=== PATIENT | female | born 1985 | race Caucasian/White ===

== ENCOUNTER → 2019-05-05 10:56 | Outpatient (BNVA) | payer BC, SELFPAY | PROVIDERS: Family Provider Family Medicine; Referring Provider Dermatology; Visit Provider Otolaryngology | DX: H92.02 Otalgia, left ear (principal); H93.13 Tinnitus, bilateral; H91.93 Unspecified hearing loss, bilateral; H60.60 Unspecified chronic otitis externa, unspecified ear; J32.9 Chronic sinusitis, unspecified; Q67.4 Other congenital deformities of skull, face and jaw; R09.82 Postnasal drip; R51 Headache; R04.0 Epistaxis | CPT/HCPCS: 99204; 99214 ==

== ENCOUNTER 2019-10-09 17:37 | Emergency (ER) | payer BC, SELFPAY ==
[2019-10-09 17:55] VITALS: BP 157/99; PULSE 102; RESP 14; TEMP 36.6; O2SAT 96; BMI 48.4
--- NOTE | 2019-10-09 19:52 | W.ED.URI ---
HPI - URI/Sore Throat General: Chief Complaint: Ear Stated Complaint: does not feel well, ear pain Time Seen by Provider: 10/09/19 19:12 Source: patient Mode of arrival: ambulatory Limitations: no limitations History of Present Illness: HPI Narrative: Patient is a 34-year-old female who presents to ED today with complaints of bilateral ear pain and fullness. Patient states she recently has flown in airplane and wonders if the high altitude could be causing her symptoms. In addition she is complaining of sinus pain/pressure, postnasal drainage, and a productive cough. Patient tells me she does have a history of allergies. She currently is undergoing allergy treatment and evaluation in [place]. Patient has not been running fevers. She does not complain of chest pain, shortness of breath, difficulty breathing. MD elicited complaint: rhinorrhea, nasal congestion, sinus pain and other (ear pain, cough) Pertinent past history: seasonal allergies Onset (ago): day(s) Consistency: constant Exacerbating factors: nothing Relieving factors: nothing Associated symptoms: Reports ear or mastoid pain, nasal congestion and sinus pain; Deny abdominal pain, chills, chest pain, fever(s), headache(s), nausea or vomiting Review of Systems Const: Denies: fever(s), chills, body aches or fatigue Eyes: Denies: change in vision, blurry vision, photophobia, eye discomfort or eye discharge ENMT: Reports: ear or mastoid pain, nasal discharge, nasal congestion, post nasal drip and sinus pain; Denies: throat pain, enlarged tonsils, odynophagia, swelling of lips/tongue, oral sores or ear discharge Card: Denies: chest pain Resp: Denies: dyspnea, productive cough or non-productive cough GI: Denies: abdominal pain, nausea or vomiting Musc: Denies: neck pain or back pain Skin/Breast: Denies: rash Neuro: Denies: headache(s) All/Imm: Denies: facial swelling or seasonal rhinorrhea [facility] ED PFSH: Medical History (Updated 10/09/19 @ 19:54 by TRACY Arteaga) Hypothyroidism Obesity Polycystic ovarian syndrome Surgical History (Updated 09/02/19 @ 19:44 by Bereket Tovar MD) History of delivery (05/03/12) Performed by Dr. Chua in [place], [place]. [place] of [place]2014: [place] [facility] [place] History of D[place]C History of foot surgery (~2010) Right foot History of nasal surgery (~2008) Treatment deviated septum History of tonsillectomy (~2008) Family History (Updated 09/02/19 @ 20:04 by Bereket Tovar MD) Mother , Age 56 from colon cancer Thyroid disease Colon cancer Hypertension Family/Other Thyroid disease maternal aunt Breast cancer Great great grandmother Hypertension Paternal aunt Father Diabetes Social History (Updated 09/02/19 @ 20:02 by Bereket Tovar MD) Smoking and tobacco status: never smoked Alcohol intake: former Physical Exam Const: COMMON NORMALS: no acute distress, patient oriented x3, no limitations and alert HENMT: COMMON NORMALS: normocephalic, atraumatic, hearing grossly normal bilaterally, external ears normal, EAC's normal, Normal external nose present, moist oral mucous membranes, oropharynx normal, dentition normal and gingiva normal HEAD & SCALP: normal to inspection, normocephalic and atraumatic FACE & SINUS: sinus tenderness maxillary NOSE: Normal external nose present EXTERNAL EAR: Yes external ears normal EXTERNAL AUDITORY CANAL: EAC's normal TYMPANIC MEMBRANE: TM abnormal (scarring to L TM; erythema/bulging to superior R TM; no perfs) MOUTH: Normal oral and palatal mucosa present THROAT: posterior oropharynx normal, tonsils normal and uvula midline Neck/C-Spine: COMMON NORMALS: full ROM, no lymphadenopathy and no meningeal signs Neuro: COMMON NORMALS: patient oriented x3 SENSORIUM/ORIENTATION: Yes alert MENINGEAL SIGNS: Yes no meningeal signs Course Vital Signs: Vital signs: Vital Signs Temperature 97.8 F 10/09/19 17:55 Pulse Rate 102 H 10/09/19 17:55 Respiratory Rate 16 10/09/19 20:20 Blood Pressure 157/99 10/09/19 17:55 Pulse Oximetry 96 10/09/19 17:55 Discharge Plan Discharge Patient Disposition: Home, Self-Care Clinical Impression: Bronchitis Acute otitis externa of right ear Qualifiers: Otitis externa type: unspecified type Qualified Code(s): H60.501 - Unspecified acute noninfective otitis externa, right ear Chronic sinusitis Qualifiers: Sinusitis location: maxillary Qualified Code(s): J32.0 - Chronic maxillary sinusitis Condition: Stable Prescriptions: New Levaquin 500 mg tablet 500 mg PO Q24H 7 Days Qty: 7 RF: 0 No Action budesonide-formoterol [Symbicort] 160-4.5 mcg/actuation HFA aerosol inhaler 2 puff INHALATION BID RF: 0 montelukast 10 mg tablet 10 mg PO DAILY RF: 0 sertraline [Zoloft] 25 mg tablet 50 mg PO DAILY RF: 0 pseudoephedrine HCl 30 mg tablet 30 - 60 mg PO Q4H PRN (Reason: unknown) RF: 0 Adult Multivitamin Gummies 200 mcg Tablet,Chewable 400 mcg PO DAILY RF: 0 Mucinex 1 tab PO BID RF: 0 Vitamin B 12 Gummies 2 tab PO DAILY RF: 0 Prometrium 200 mg capsule 200 mg PO PRN RF: 0 Discharge Orders: Discharge Order (Routine); Ordered 10/09/19 Ordered By: Phoebe Posada Referrals: Nely Romero FNP [Primary Care Provider] - Discharge Date/Time: 10/09/19 20:21 Coding Level of Care Code ED Restaurant Team Member for Ryan Menon
[2019-10-09 20:20] VITALS: RESP 16
== END 2019-10-09 20:21 | disposition home or self-care (01) ==
PROVIDERS: Emergency Provider Physician Assistant; PCP Nurse Practitioner Family
DX: J40 Bronchitis, not specified as acute or chronic (principal); H60.501 Unspecified acute noninfective otitis externa, right ear; J32.0 Chronic maxillary sinusitis
CPT/HCPCS: 12345; 99281

== ENCOUNTER 2020-09-30 07:13 | Outpatient (CLI) | payer BC, SELFPAY ==
--- NOTE | 2020-09-30 07:22 | MR_ITS ---
WS: [id number] MRI LUMBAR SPINE NONCONTRAST TECHNIQUE: Sagittal T1, T2 and STIR imaging. Axial T1 and T2 imaging. CLINICAL INFORMATION: CHRONIC BACK PAIN COMPARISON: None. FINDINGS: Mild lumbar curve. No acute compression. No high-grade central canal stenosis. L1-L2: Normal. L2-L3: Tiny left foraminal protrusion with mild left foraminal narrowing. Contact of the exiting left L2 nerve root. Right foramen is patent. Spinal canal is patent. L3-L4: Small left foraminal protrusion slightly impinges the exiting left L3 nerve root with mild lef t foraminal narrowing. Right foramen is patent. Mild facet arthropathy. Spinal canal is patent. L4-L5: Tiny right proximal foraminal protrusion slightly contacts the exiting right L4 nerve root wit h mild right foraminal narrowing. Left foramen is patent. Moderate facet arthropathy. Spinal canal is patent. L5-S1: Mild disc bulging with osteophytic ridging. Advanced right facet arthropathy. Mild to moderate right and no significant left foraminal narrowing. Slight impingement right subarticular recess and traversing right S1 nerve root.Tiny right synovial cyst contributes to narrowing. Visualized pelvic bony structures: Normal. Paravertebral soft tissues: Normal. MR/MR lumbar spine wo con* [id number] IMPRESSION: 1. Right eccentric disc bulging L5-S1 slightly impinges the exiting right L5 a nd traversing right S1 nerve roots. Tiny right synovial cyst contributes to emily rowing. Mild to moderate right L5-S1 foraminal narrowing. Advanced right facet arthropathy. 2. Small left foraminal protrusions at L2-3 and L3-4 with contact of the exiti ng left L2 and L3 nerve roots respectively. 3. Tiny right proximal foraminal protrusion slightly contacts the exiting righ t L4 nerve root. 4. Mild to moderate facet arthropathy L4-5.
== END 2020-09-30 07:14 | disposition home or self-care (01) ==
LOC: RADSHAW 07:20
PROVIDERS: PCP Nurse Practitioner Family; Visit Provider Nurse Practitioner Family
DX: M47.816 Spondylosis without myelopathy or radiculopathy, lumbar region (principal); M51.26 Other intervertebral disc displacement, lumbar region; M51.27 Other intervertebral disc displacement, lumbosacral region
CPT/HCPCS: 72148

== ENCOUNTER 2020-10-11 12:00 | Outpatient (CLI) | payer BC, SELFPAY | END 2020-10-11 12:01 | disposition home or self-care (01) | LOC: SLEEP 10-12 10:51 | PROVIDERS: PCP Nurse Practitioner Family; Visit Provider Nurse Practitioner Family | DX: G47.10 Hypersomnia, unspecified (principal) | CPT/HCPCS: G0399 ==

== ENCOUNTER 2021-09-21 09:00 | Day surgery (SDC) | payer BC, SELFPAY ==
[2021-09-19 11:44] VITALS: BMI 51.6
[2021-09-21 09:35] VITALS: BP 146/86; PULSE 101; RESP 18; TEMP 36.7; O2SAT 97
[2021-09-21] MEDS: sodium chloride 0.9% 1,000 ML 30 ML IV (09:42)
[2021-09-21 09:48] LABS: OR HCG Qualitative Urine Negative (Negative)
--- NOTE | 2021-09-21 10:50 | ANES.PREANE2 ---
Pre-Anesthetic Assessment Height/Weight: Height 1.68 m Weight 145.15 kg Temp Pulse Resp BP Pulse Ox 98.1 F 101 H 18 146/86 97 09/21/21 09:35 09/21/21 09:35 09/21/21 09:35 09/21/21 09:35 09/21/21 09:35 Preop Diagnosis: diagnostic Operation Date: 09/21/21 10:30 Proposed Procedures p EGD [id number]/r10.9/r19.7/z80.0(Not Applicable) - Hammad Molina MD s Colonoscopy(Not Applicable) - Hammad Molina MD Last intake: Intake Last Liquid Date 09/20/21 Last Liquid Time 21:00 Last Solid Date 09/19/21 Last Solid Time 08:00 Social Medical Cannibus Airway Submandibular: within normal limits Mallampati: Class II Pulmonary Asthma Metabolic Obesity, Hypothroidism Anesthetic Plan ASA status: 2 Anesthesia: MAC Medications/Allergies Home Medications Medication Instructions Recorded Confirmed Last Taken Type budesonide-formoterol HFA 160 2 puff INHALATION BID 08/14/19 09/21/21 6 Months Ago History mcg-4.5 mcg/actuation aerosol ~03/23/21 inhaler (Symbicort) Vitamin B 12 Gummies 2 tab PO DAILY 10/09/19 09/21/21 1 Year Ago History ~09/21/20 multivitamin with minerals-folic 400 mcg PO DAILY 10/09/19 09/21/21 09/16/21 History acid 200 mcg chewable tablet (Adult Multivitamin Gummies) progesterone micronized 200 mg 200 mg PO PRN 10/09/19 09/21/21 08/18/21 History capsule (Prometrium) Allergies Allergy/AdvReac Type Severity Reaction Status Date / Time oxycodone Allergy Intermediate itch Verified 09/21/21 09:32 Current Medications Generic Name Dose Route Start Last Admin Trade Name Freq PRN Reason Stop Dose Admin Sodium Chloride 1,000 mls @ 30 mls/hr 09/21/21 09:30 09/21/21 09:42 Sodium Chloride 0.9% IV 09/22/21 09:29 30 mls/hr .Q24H JOSE Administration PFSH Anesthesia Medical History Hypothyroidism Obesity Polycystic ovarian syndrome Surgical History History of delivery (05/03/12) Performed by Dr. Chua in [place], [place]. History of colonoscopy 10/2014: Performed by Dr. Molina at [facility] [place]. History of D&C History of foot surgery (~2010) Right foot History of nasal surgery (~2008) Treatment deviated septum History of sinus surgery 12/2019 History of tonsillectomy (~2008) Family History Mother , Age 56 from colon cancer Thyroid disease Colon cancer Hypertension Family/Other Thyroid disease maternal aunt Breast cancer Great great grandmother Hypertension Paternal aunt Father Diabetes Social History Smoking and tobacco status: never smoked Alcohol intake: former Female Reproductive History Date of last menstrual period: 08/17/21 Data Anesthesia Cardiac Studies: No Data to Display
[2021-09-21 11:37] VITALS: BP 143/85; PULSE 89; RESP 16; TEMP 36.3; O2SAT 98
--- NOTE | 2021-09-21 11:39 | W.PM.OPSFHP ---
Same Day Surgery H&P Indication for Procedure/HPI DATE OF PROCEDURE: September 21, 2021 CHIEF COMPLAINT/INDICATIONFOR SURGICAL PROCEDURE: egd/colon PREOP DIAGNOSIS: diagnostic PLANNED PROCEDURE: Operation Date: 09/21/21 10:30 Proposed Procedures p EGD [id number]/r10.9/r19.7/z80.0(Not Applicable) - Hammad Molina MD s Colonoscopy(Not Applicable) - Hammad Molina MD Medications/Allergies* Home Medications Medication Instructions Recorded Confirmed Type budesonide-formoterol HFA 160 2 puff INHALATION BID 08/14/19 09/21/21 History mcg-4.5 mcg/actuation aerosol inhaler (Symbicort) Vitamin B 12 Gummies 2 tab PO DAILY 10/09/19 09/21/21 History multivitamin with minerals-folic 400 mcg PO DAILY 10/09/19 09/21/21 History acid 200 mcg chewable tablet (Adult Multivitamin Gummies) progesterone micronized 200 mg 200 mg PO PRN 10/09/19 09/21/21 History capsule (Prometrium) Allergies/Adverse Reactions Allergy/AdvReac Type Severity Reaction Status Date / Time oxycodone Allergy Intermediate itch Verified 09/21/21 09:32 Current Medications: Generic Name Dose Route Start Last Admin Trade Name Freq PRN Reason Stop Dose Admin Sodium Chloride 1,000 mls @ 30 mls/hr 09/21/21 09:30 09/21/21 09:42 Sodium Chloride 0.9% IV 09/22/21 09:29 30 mls/hr .Q24H JOSE Administration Pertinent History/Comorbid Conditions* Medical History (Updated 06/16/20 @ 14:53 by Dayo Rivera MD) Hypothyroidism Obesity Polycystic ovarian syndrome Surgical History (Updated 07/05/21 @ 13:35 by Hammad Molina MD) History of delivery (05/03/12) Performed by Dr. Chua in [place], [place]. History of colonoscopy 10/2014: Performed [place]. Molina [place] [facility] [place]. History of D&C History of foot surgery (~2010) Right foot History of nasal surgery (~2008) Treatment deviated septum History of sinus surgery 12/2019 History of tonsillectomy (~2008) Family History (Updated 09/02/19 @ 20:01 by Bereket Tovar MD) Mother, Age 56 from colon cancer Colon cancer Mother Diabetes Father Breast cancer Family/Other Great great grandmother Hypertension Mother Family/Other Paternal aunt Thyroid disease Mother Family/Other maternal aunt Social History Smoking and tobacco status: never smoked Alcohol intake: former Pertinent Exam Findings alert, oriented x 3 and regular rate & rhythm Recommendations Surgery/Procedure today Coding Level of Care Code Acute Finishing Area Operator for Ryan Menon
[2021-09-21 11:47] VITALS: BP 131/83; PULSE 85; RESP 16; O2SAT 96
--- NOTE | 2021-09-21 13:24 | ANE.PACU2 ---
Inpatient post-anesthesia follow up: Vital signs: Temperature 97.4 F Pulse Rate 85 Respiratory Rate 16 Blood Pressure 131/83 Pulse Oximetry 96 Oxygen Delivery Me thod Room Air Oxygen Flow Rate 2 Fraction of Inspir ed Oxygen Hydration adequate: Yes Nausea and vomiting: No Pain level: 1 Mental status: Baseline
== END 2021-09-21 12:33 | disposition home or self-care (01) ==
PROVIDERS: Anesthesiology; PCP Nurse Practitioner Family; Visit Provider Surgery
PROC: 0DJ08ZZ Inspection of Upper Intestinal Tract, Via Natural or Artificial Opening Endoscopic (ICD-10-PCS; CPT 43235; principal; 2021-09-21 10:30)
PROC: 0DJD8ZZ Inspection of Lower Intestinal Tract, Via Natural or Artificial Opening Endoscopic (ICD-10-PCS; CPT 45378; 2021-09-21 10:30)
DX: R19.7 Diarrhea, unspecified (principal); R10.9 Unspecified abdominal pain; Z80.0 Family history of malignant neoplasm of digestive organs; K29.80 Duodenitis without bleeding; E66.9 Obesity, unspecified; Z68.43 Body mass index [BMI] 50.0-59.9, adult; E03.9 Hypothyroidism, unspecified; E28.2 Polycystic ovarian syndrome
CPT/HCPCS: 43239; 45380; 81025; 82274; 83630; 84703; 87493; 87506; 88305; J2704; J7030

== ENCOUNTER 2021-11-09 09:58 | Outpatient (CLI) | payer BC, SELFPAY ==
--- NOTE | 2021-11-09 10:00 | NM_ITS ---
WS: [id number] NUCLEAR MEDICINE HIDA SCAN WITH GALLBLADDER EJECTION FRACTION HISTORY: R10.9 - Unspecified abdominal pain COMPARISON: Limited abdomen ultrasound 09/23/2019 TECHNIQUE: The patient was intravenously injected with 7.6 mCi of TC99m Mebrofenin. Immediate imaging over the right upper quadrant was followed by 5 minute image and additional images for a total of 60 minutes. Uptake throughout the liver is heterogeneous. This is probably related to overlying attenuation and b haydee habitus. No retention of the nuclide tracer. Activity identified in the gallbladder at 15 minutes and well distended by 60 minutes. Activity in the proximal small bowel was seen by 40 minutes. Good washout of the radiotracer from the liver by 60 minutes. The patient then drank 8 ounces of Ensure Plus. Ejection fraction at 60 minutes was 85%. Normal GB ej ection fraction is 35-75%. Post fatty meal symptoms: None. NM/NM hepatobiliary w phar* [id number] IMPRESSION: 1. Normal HIDA scan. 2. Normal gallbladder ejection fraction.
== END 2021-11-09 09:59 | disposition home or self-care (01) ==
LOC: RAD 10:00
PROVIDERS: PCP Nurse Practitioner Family; Visit Provider Surgery
DX: R10.9 Unspecified abdominal pain (principal)
CPT/HCPCS: 78227; A9537

== ENCOUNTER 2021-11-18 07:50 | Day surgery (SDC) | payer BC, SELFPAY ==
[2021-11-17 12:30] VITALS: BMI 50.8
[2021-11-18] VITALS (20 sets, daily range): BP systolic 136–177; BP diastolic 83–110; PULSE 6–97; RESP 8–17; TEMP 36.3–36.8; O2SAT 89–99
--- NOTE | 2021-11-18 08:18 | ANES.PREANE2 ---
Pre-Anesthetic Assessment Height/Weight: Height 1.68 m Weight 142.882 kg Temp Pulse Resp BP Pulse Ox O2 Del Method 98.2 F 95 17 150/104 97 11/18/21 08:05 11/18/21 08:05 11/18/21 08:05 11/18/21 08:05 11/18/21 08:05 11/18/21 08:09 Preop Diagnosis: chronic cholecystitis Operation Date: 11/18/21 09:15 Proposed Procedures p Laparoscopic Cholecystectomy(Not Applicable) - Hammad Molina MD Familial anesthetic complications: none Was Beta Naresh taken within 24 hours: N/A Was Clonidine taken within 24 hours: N/A Last intake: Intake Last Liquid Date 11/17/21 Last Liquid Time 23:30 Last Solid Date 11/17/21 Last Solid Time 20:30 Social No alcohol and No tobacco Exam alert, oriented x 3, clear to auscultation bilaterally and regular rate & rhythm Airway Submandibular: within normal limits Cervical ROM: within normal limits Mallampati: Class II Comments: Comments: Broken molar Pulmonary Recurrent epistaxis CV/HEM None reported PCOS Hepatic None reported GI Gastroesophageal Reflux Disease (Well controlled, only with specific foods ) cholecystitis Metabolic Morbid Obesity and Thyroid Disease Musc/skel None reported Neuropsych None reported Anesthetic Plan ASA status: 3 (36 year old super morbid obese female with hx of hypothyroidism, PCOS, chronic otitis, and choecystitis ) Anesthesia: Anesthesia Evaluation and General Other: We discussed risk and benefits of general anesthesia including PONV, sore throat (sometimes severe), corneal abrasion, positioning and peripheral nerve injuries, life threatening allergic reaction, post operative ICU admission requiring prolonged intubation, aspiration, stroke, heart attack, , and rare incidences of recall. Patient consents to proceed with general anesthesia. Risk of > 500 ml blood loss (7ml/kg in children): No Medications/Allergies Home Medications Medication Instructions Recorded Confirmed Last Taken Type budesonide-formoterol HFA 160 2 puff inhalation BID PRN Wheezing 08/14/19 11/17/21 6 Months Ago History mcg-4.5 mcg/actuation aerosol ~03/23/21 inhaler (Symbicort) Vitamin B 12 Gummies 2 tab PO DAILY 10/09/19 11/18/21 11/15/21 History multivitamin with minerals-folic 400 mcg PO DAILY 10/09/19 11/18/2111/17/22 09:00 History acid 200 mcg chewable tablet (Adult Multivitamin Gummies) progesterone micronized 200 mg 200 mg PO PRN pcos 10/09/19 11/18/21 08/18/21 History capsule (Prometrium) bacillus coagulans-inulin 1 1 cap PO DAILY 11/18/21 11/18/21 11/17/21 08:30 History billion cell-250 mg capsule (Probiotic with Prebiotic) Allergies Allergy/AdvReac Type Severity Reaction Status Date / Time oxycodone Allergy Intermediate itch Verified 11/18/21 08:06 [facility] Anesthesia Medical History Hypothyroidism Obesity Polycystic ovarian syndrome Surgical History History of delivery (05/03/12) Performed by Dr. Chua in [place], [place]. History of colonoscopy 10/2014: Performed by Dr. Molina at [facility] [place]. History of D&C History of foot surgery (~2010) Right foot History of nasal surgery (~2008) Treatment deviated septum History of sinus surgery 12/2019 History of tonsillectomy (~2008) Family History Mother , Age 56 from colon cancer Thyroid disease Colon cancer Hypertension Family/Other Thyroid disease maternal aunt Breast cancer Great great grandmother Hypertension Paternal aunt Father Diabetes Social History Smoking and tobacco status: never smoked Alcohol intake: former Female Reproductive History Date of last menstrual period: 10/23/21 Data Anesthesia Cardiac Studies: No Data to Display
[2021-11-18 08:19] LABS: OR HCG Qualitative Urine Negative (Negative)
[2021-11-18] MEDS: sodium chloride 0.9% 1,000 ML 30 ML IV (08:42)
[2021-11-18] MEDS: scopolamine 1.5 Patch 1 PATCH TRANSDERMA (08:48)
[2021-11-18] MEDS: diphenhydrAMINE 50 mg/mL SDV 1mL 12.5 MG IVP (08:49)
--- NOTE | 2021-11-18 09:22 | P.HP_ITS ---
Same Day Surgery H&P Indication for Procedure/HPI DATE OF PROCEDURE: November 18, 2021 CHIEF COMPLAINT/INDICATIONFOR SURGICAL PROCEDURE: Lap burton PREOP DIAGNOSIS: chronic cholecystitis PLANNED PROCEDURE: Operation Date: 11/18/21 09:15 Proposed Procedures p Laparoscopic Cholecystectomy(Not Applicable) - Hammad Molina MD Medications/Allergies* Home Medications Medication Instructions Recorded Confirmed Type budesonide-formoterol HFA 160 2 puff inhalation BID PRN Wheezing 08/14/19 11/17/21 History mcg-4.5 mcg/actuation aerosol inhaler (Symbicort) Vitamin B 12 Gummies 2 tab PO DAILY 10/09/19 11/18/21 History multivitamin with minerals-folic 400 mcg PO DAILY 10/09/19 11/18/21 History acid 200 mcg chewable tablet (Adult Multivitamin Gummies) progesterone micronized 200 mg 200 mg PO PRN pcos 10/09/19 11/18/21 History capsule (Prometrium) bacillus coagulans-inulin 1 1 cap PO DAILY 11/18/21 11/18/21 History billion cell-250 mg capsule (Probiotic with Prebiotic) Allergies/Adverse Reactions Allergy/AdvReac Type Severity Reaction Status Date / Time oxycodone Allergy Intermediate itch Verified 11/18/21 08:06 Current Medications: Generic Name Dose Route Start Last Admin Trade Name Freq PRN Reason Stop Dose Admin Diphenhydramine HCl 12.5 mg 11/18/21 08:00 11/18/21 08:49 Diphenhydramine 50 Mg/Ml Sdv 1ml IVP 12.5 mg ONCE PRN Administration NAUSEA Sodium Chloride 1,000 mls @ 30 mls/hr 11/18/21 08:00 11/18/21 08:42 Sodium Chloride 0.9% IV 11/19/21 07:59 30 mls/hr .Q24H JOSE Administration Pertinent History/Comorbid Conditions* Medical History (Updated 06/16/20 @ 14:53 by Dayo Rivera MD) Hypothyroidism Obesity Polycystic ovarian syndrome Surgical History (Updated 07/05/21 @ 13:35 by Hammad Molina MD) History of delivery (05/03/12) Performed by Dr. Chua in [place], [place]. History of colonoscopy 10/2014: Performed by Dr. Molina at [facility] [place]. History of D&C History of foot surgery (~2010) Right foot History of nasal surgery (~2008) Treatment deviated septum History of sinus surgery 12/2019 History of tonsillectomy (~2008) Family History (Updated 09/02/19 @ 20:01 by Bereket Tovar MD) Mother, Age 56 from colon cancer Colon cancer Mother Diabetes Father Breast cancer Family/Other Great great grandmother Hypertension Mother Family/Other Paternal aunt Thyroid disease Mother Family/Other maternal aunt Social History Smoking and tobacco status: never smoked Alcohol intake: former Pertinent Exam Findings alert, oriented x 3 and regular rate & rhythm Recommendations Surgery/Procedure today Coding Level of Care Code Acute Bleach Analyst for Ryan Menon
[2021-11-18] MEDS: ceFAZolin 2,000 MG in sodium chloride 0.9% (plus) 50 ML 100 MG IV (09:32)
[2021-11-18 09:59] LABS: Glucose Point of Care 112 mg/dL (70-110)
--- NOTE | 2021-11-18 11:04 | SUR.PHASEI ---
10:44 RECEIVED PT FROM OR STAFF. PT RESPONDS TO VERBAL WITH PERIODS OF SLEEP APNEA.NSR ON MONITOR. 10;45 PLACED ON O2 AND JAW THRUST PERFORMED BY ANESTHESIA. 10:47 PT MORE RESPONSIVE IMPROVED VENTILATIONS. 11:05 SURGICAL SITES ASSESSED. NO DRAINAGE NOTED.
--- NOTE | 2021-11-18 11:13 | PM.OP ---
Operative Report Date of procedure: November 18, 2021 Pre-op diagnosis: Chronic cholecystitis Hepatomegaly Post-op diagnosis: same Procedure done: Laparoscopic cholecystectomy Specimens removed/disposition: Gallbladder Surgeon: Hammad Molina Anesthesia: General Condition: stable Disposition: PACU Procedure: The patient was taken to the operating room and was intubated under general anesthesia. After the antibiotic had been administered, the abdomen was prepped and draped in a sterile manner. Using a #15 blade, a 1 centimeter infraumbilical curvilinear incision was made and using an open Ren technique the peritoneal cavity was entered. A 10 millimeter port was placed and 15 millimeters of pneumoperitoneum was created. A 10 millimeter, 30 degrees scope was then introduced. Three 5 millimeter ports were placed in the epigastric, midclavicular and the anterior axillary line two fingerbreadths below the costal margin on the right side under the direct visualization. Ratcheted forceps were introduced into the lateral most port and was used to retract the fundus of the gallbladder cephalad and using forceps the infundibulum of the gallbladder was retracted laterally. Using L-hook cautery the peritoneum overlying the Calot's triangle was opened medially and laterally until the cystic duct and the cystic artery were skeletonized. Dissection was carried along the body of the gallbladder and after ensuring critical view of safety, 4 clips applied on the cystic duct and 3 clips applied on the cystic artery and cut leaving, 3 clips on the remaining portion of the duct and 2 clips on the remaining portion of the artery. The rest of the gallbladder was dissected off the liver using L-hook cautery. There was no bleeding or bile leaking noted from the gallbladder fossa and the clips appeared to be in place. An EndoCatch bag was introduced to remove the gallbladder. All the ports were removed under direct visualization and there was no bleeding noted from the port sites. The fascia of the umbilicus was closed using [id number] 0 Vicryl sutures and the subcutaneous tissue was approximated using 3-0 Vicryl sutures. The skin at all four ports were closed using 4-0 Monocryl and Dermabond. A total of 10 millimeters of 0.5% Marcaine was infiltrated around the port sites. The patient was stable throughout the procedure.
--- NOTE | 2021-11-18 12:24 | ANE.PACU2 ---
Inpatient post-anesthesia follow up: Airway intact: Yes Vital signs: Temperature 97.8 F Pulse Rate 77 Respiratory Rate 17 Blood Pressure 157/97 Pulse Oximetry 96 Oxygen Delivery Me thod Nasal Cannula Oxygen Flow Rate 3 Fraction of Inspir ed Oxygen Hydration adequate: Yes Nausea and vomiting: No Pain level: 1 Mental status: Baseline
--- NOTE | 2021-11-18 12:44 | SUR.PHASEII ---
1244-patient was feeling tight in her chest saying she felt like she needed a breathing treatment. RT was called and will administer treatment in OPS rm 10
[2021-11-18] MEDS: HYDROcodone-acetaminophen 5-325 mg Tablet 1 TAB PO (13:22)
== END 2021-11-18 13:43 | disposition home or self-care (01) ==
PROVIDERS: Anesthesiology; PCP Nurse Practitioner Family; Visit Provider Surgery
PROC: 0FT44ZZ Resection of Gallbladder, Percutaneous Endoscopic Approach (ICD-10-PCS; CPT 47562; principal; 2021-11-18 09:15)
DX: K81.1 Chronic cholecystitis (principal); R16.0 Hepatomegaly, not elsewhere classified; K21.9 Gastro-esophageal reflux disease without esophagitis; E66.01 Morbid (severe) obesity due to excess calories; Z68.43 Body mass index [BMI] 50.0-59.9, adult; E03.9 Hypothyroidism, unspecified; E28.2 Polycystic ovarian syndrome
CPT/HCPCS: 47562; 36416; 81025; 82962; 84703; 88304; 94640; J1170; J1200; J1885; J2250; J2710; J3010; J3490; J7030

== ENCOUNTER 2021-11-29 12:52 | Emergency (ER) | payer BC, SELFPAY ==
[2021-11-29 12:59] VITALS: BP 152/96; PULSE 102; RESP 20; TEMP 36.6; O2SAT 98; BMI 51.7
--- NOTE | 2021-11-29 15:00 | PC.NURSE ---
PULSE OX MONITORING AND CARDIAC MONITORING ARE NOT AVAILABLE AT THIS TIME IN VERTICAL FLOW [facility] MOLINA WAS NOTIFIED
--- NOTE | 2021-11-29 15:01 | ED_ITS ---
HPI - Abdominal Pain General: Chief Complaint: Abdominal Pain Stated Complaint: Possible appendicitis Time Seen by Provider: 11/29/21 14:54 Source: patient Mode of arrival: ambulatory Limitations: no limitations History of Present Illness: Patient is a 36-year-old female presents to ED today with a complaint of right-sided abdominal pain. Patient states she had a laparoscopic cholecystectomy by Dr. Molina on 11/18. She states she was doing good following the surgery until around 3 AM when she awoke with significant right-sided abdominal pain. She was seen by Dr. Molina today who recommended she have a UA performed at urgent care through her PCP as she had also mentioned some foul-smelling urine and he wanted to rule out a UTI. He stated if UA was clear then she needed to proceed to rule out appendicitis as she was tender to her right lower quadrant on his examination. Patient states she did have UA completed and was told it was normal. Patient states she is having some nausea but not had any episodes of emesis. She has not been running fevers. She states her abdominal incisions are looking good. Previous abdominal surgeries include her recent cholecystectomy and one previous section. MD elicited complaint: abdominal pain Onset (ago): hour(s) Pain Consistency: constant Location: RUQ and RLQ Severity: severe Radiation: none Migration to: no migration Exacerbating factors: nothing Relieving factors: nothing Associated Symptoms: Reports nausea; Denies change in bowel habits, chills, dysuria, fever(s), hematochezia, melena and vomiting Related Data: Date of Last Menstrual Period: 10/29/21 Patient : No Review of Systems Const: Denies: fever(s), chills, body aches, fatigue or malaise Card: Denies: chest pain Resp: Denies: dyspnea GI: Reports: abdominal pain and nausea; Denies: vomiting, change in bowel habits, hematochezia or melena : Reports: other (pt states foul smelling urine was a few days ago; denies currently); Denies: flank pain, difficulty voiding, dysuria, urinary frequency, urinary ur gency or urinary hesitancy Musc: Denies: neck pain, back pain, extremity pain or joint pain Skin/Breast: Denies: rash Neuro: Denies: headache(s), numbness in extremities, weakness in extremities, sensory changes or dizziness PFSH ED PFSH: Medical History Hypothyroidism Obesity Polycystic ovarian syndrome Surgical History History of delivery (05/03/12) Performed by Dr. Chua in [place], [place]. History of colonoscopy 10/2014: Performed by Dr. Molina at [facility]. History of D&C History of foot surgery (~2010) Right foot History of nasal surgery (~2008) Treatment deviated septum History of sinus surgery 12/2019 History of tonsillectomy (~2008) Status post laparoscopic cholecystectomy (11/18/21) Family History Mother , Age 56 from colon cancer Thyroid disease Colon cancer Hypertension Family/Other Thyroid disease maternal aunt Breast cancer Great great grandmother Hypertension Paternal aunt Father Diabetes Social History Smoking and tobacco status: never smoked Alcohol intake: former Female Reproductive History: Date of last menstrual period: 10/29/21 Physical Exam Const: COMMON NORMALS: no acute distress, patient oriented x3, no limitations and alert GENERAL APPEARANCE: cooperative NUTRITIONAL APPEARANCE: obese morbidly obese (BMI is 51.8) ORIENTATION/CONSCIOUSNESS: Yes awake, Yes oriented to person, Yes oriented to place and Yes oriented to time Resp: COMMON NORMALS: normal respiratory effort and clear to auscultation bilaterally AUSCULTATION: clear to auscultation bilaterally Cardio: COMMON NORMALS: regular rate and regular rhythm RATE: regular rate RHYTHM: regular rhythm GI: COMMON NORMALS: Soft to palpation AUSCULTATION: Yes normoactive bowel sounds PALPATION: Yes Soft to palpation, Yes Tenderness to palpation present (GI), Yes Guarding due to palpation present (GI) and No Rigid due to palpation OTHER: exam is limited secondary to body habitus and patient seated in a recliner; laparoscopic incisions all look normal w/o evidence for infection; she has tenderness throughout R side of abdomen with mild guarding : COMMON NORMALS: Yes no CVA tenderness BLADDER/KIDNEY EXAM: Yes no CVA tenderness Back/Pelvis: COMMON NORMALS: no CVA tenderness Extremity: COMMON NORMALS: normal to inspection GENERAL: Yes normal exam except as noted Neuro: JENNA COMA SCALE: document GCS findings Jenna coma scale eye op ening: Spontaneous [place] coma scale verbal response: Orientated [place] coma scale motor response: Obey commands Jenna coma scale total score: 15 COMMON NORMALS: patient oriented x3 SENSORIUM/ORIENTATION: Yes alert, Yes oriented to person, Yes oriented to place and Yes oriented to time Course Vital Signs: Vital signs: Vital Signs Temperature 97.8 F 11/29/21 12:59 Pulse Rate 102 H 11/29/21 12:59 Respiratory Rate 20 H 11/29/21 12:59 Blood Pressure 152/96 11/29/21 12:59 Pulse Oximetry 98 11/29/21 12:59 MDM - Abdominal Pain Medical Decision Making Patient clinically appears in no acute distress. Her vital signs are stable. Lab work is unremarkable. Her UA is clear. CT scan showing no acute findings. She does have a diffuse fatty liver. At this time recommend she follow-up with general surgery/PCP if pain persists. She states she does have pain medications at home she can take. Strict return ED precautions given and patient verbalizes understanding. Lab Data : 11/29/21 14:43 11/29/21 14:43 Labs/Radiology: Radiology Impressions Abdomen/Pelvis CT 11/29/21 15:13 IMPRESSION: 1. No acute findings. 2. Diffuse hepatic steatosis. Laboratory Results WBC 10.4 10^3/uL (4.0-10.0) H 11/29/21 14:43 RBC 4.53 10^6/uL (4.1-5.3) 11/29/21 14:43 Hgb 13.9 g/dL (11.5-15.3) 11/29/21 14:43 Hct 42.8 % (37.0-47.0) 11/29/21 14:43 MCV 94.5 fl (81-99) 11/29/21 14:43 MCH 30.7 pg (28.0-34.0) 11/29/21 14:43 MCHC 32.5 g/dL (30.0-36.0) 11/29/21 14:43 RDW 12.4 % (12.1-15.1) 11/29/21 14:43 Plt Count 306 10^3/cmm (130-400) 11/29/21 14:43 MPV 9.3 fL (7.4-10.4) 11/29/21 14:43 Neut % (Auto) 69.9 % 11/29/21 14:43 Lymph % (Auto) 19.6 % 11/29/21 14:43 [place] % (Auto) 6.2 % 11/29/21 14:43 Eos % (Auto) 3.6 % 11/29/21 14:43 Baso % (Auto) 0.3 % 11/29/21 14:43 Neut # (Auto) 7.24 10^3/uL (1.8-7.7) 11/29/21 14:43 Lymph # (Auto) 2.0 10^3/uL (0.8-4.8) 11/29/21 14:43 [place] # (Auto) 0.6 10^3/uL (0.2-0.9) 11/29/21 14:43 Eos # (Auto) 0.4 10^3/uL (0.0-0.8) 11/29/21 14:43 Baso # (Auto) 0.0 10^3/uL (0.0-0.1) 11/29/21 14:43 Nucleated RBC % (auto) 0 % 11/29/21 14:43 Nucleated RBCs # 0.0 /100WBC 11/29/21 14:43 Sodium 138 mmol/L (136-145) 11/29/21 14:43 Sodium Cancelled 11/29/21 14:43 Potassium 3.7 mmol/L (3.5-5.1) 11/29/21 14:43 Potassium Cancelled 11/29/21 14:43 Chloride 102 mmol/L (98-107) 11/29/21 14:43 Chloride Cancelled 11/29/21 14:43 Carbon Dioxide 23 mmol/L (22-29) 11/29/21 14:43 Carbon Dioxide Cancelled 11/29/21 14:43 Anion Gap 16.7 (5-19) 11/29/21 14:43 Anion Gap Cancelled 11/29/21 14:43 BUN 8 mg/dL (6-20) 11/29/21 14:43 BUN Cancelled 11/29/21 14:43 Creatinine 0.8 mg/dL (0.5-0.9) 11/29/21 14:43 Creatinine Cancelled 11/29/21 14:43 GFR Calculation 81.6 mL/min (90-130) L 11/29/21 14:43 GFR Calculation Cancelled 11/29/21 14:43 Glucose 96 mg/dL (65-115) 11/29/21 14:43 Glucose Cancelled 11/29/21 14:43 Calculated Osmolality 284 mOsm/kg (285-295) L 11/29/21 14:43 Calculated Osmolality Cancelled 11/29/21 14:43 Lactic Acid 0.9 mmol/L (0.5-2.2) 11/29/21 14:43 Calcium 8.6 mg/dL (8.5-10.5) 11/29/21 14:43 Calcium Cancelled 11/29/21 14:43 Total Bilirubin 0.5 mg/dL (0.15-1.2) 11/29/21 14:43 Total Bilirubin Cancelled 11/29/21 14:43 AST 25 U/L (0-32) 11/29/21 14:43 AST Cancelled 11/29/21 14:43 ALT 38 U/L (0-33) H 11/29/21 14:43 ALT Cancelled 11/29/21 14:43 Alkaline Phosphatase 94 U/L (35-105) 11/29/21 14:43 Alkaline Phosphatase Cancelled 11/29/21 14:43 Total Protein 7.4 g/dL (6.6-8.7) 11/29/21 14:43 Total Protein Cancelled 11/29/21 14:43 Albumin 3.9 g/dL (3.5-5.2) 11/29/21 14:43 Albumin Cancelled 11/29/21 14:43 Globulin 3.5 g/dL (1.3-4.6) 11/29/21 14:43 Globulin Cancelled 11/29/21 14:43 Lipase 32 U/L (13-60) 11/29/21 14:43 Lipase Cancelled 11/29/21 14:43 HCG, Qual Negative (Negative) 11/29/21 14:43 Urine Color Yellow (Yellow) 11/29/21 16:18 Urine Appearance Clear (CLEAR) 11/29/21 16:18 Urine pH 5 (5-7) 11/29/21 16:18 Ur Specific [employer] 1.020 (1.005-1.030) 11/29/21 16:18 Urine Protein Neg (Negative) 11/29/21 16:18 Urine Glucose (UA) Norm (Normal) 11/29/21 16:18 Urine Ketones 1+ (Negative) H 11/29/21 16:18 Urine Blood Neg (Negative) 11/29/21 16:18 Urine Nitrate Negative (Negative) 11/29/21 16:18 Urine Bilirubin Neg (Negative) 11/29/21 16:18 Urine Urobilinogen Norm mg/dL (Negative) 11/29/21 16:18 Ur Leukocyte Esterase Negative (Negative) 11/29/21 16:18 Discharge Plan Discharge Patient Disposition: Home Clinical Impression: Right sided abdominal pain Condition: Stable Prescriptions: No Action budesonide-formoterol [Symbicort] 160-4.5 mcg/actuation HFA aerosol inhaler 2 puff INHALATION BID PRN (Reason: Wheezing) Adult Multivitamin Gummies 200 mcg Tablet,Chewable 400 mcg PO DAILY Vitamin B 12 Gummies 2 tab PO DAILY progesterone micronized [Prometrium] 200 mg capsule 200 mg PO PRN Rx Instructions: each month Probiotic with Prebiotic 1 billion-250 cell-mg Capsule 1 cap PO DAILY Colace 100 mg capsule 100 mg PO BID Qty: 30 0RF hydrocodone-acetaminophen 5-325 mg tablet 1 tab PO Q6H PRN (Reason: pain) Qty: 20 0RF Discharge Orders: Discharge ED (Routine); Ordered 11/29/21 Ordered By: Phoebe Posada Referrals: Nely Romero FNP [Primary Care Provider] - Patient Instructions: Abdominal Pain (ED) Coding Level of Care Code ED Machining And Assembly Supervisor for Chg Fwd Exam Detailed
[2021-11-29 15:08] LABS: Basophils % 0.3 %; Eosinophils # 0.4 10^3/uL (0.0-0.8); Eosinophils % 3.6 %; Hematocrit 42.8 % (37.0-47.0); Hemoglobin 13.9 g/dL (11.5-15.3); Lymphocytes % 19.6 %; Mean Corpuscular HGB Conc 32.5 g/dL (30.0-36.0); Mean Corpuscular Hemoglobin 30.7 pg (28.0-34.0); Mean Corpuscular Volume 94.5 fl (81-99); Mean Platelet Volume 9.3 fL (7.4-10.4); Monocytes # 0.6 10^3/uL (0.2-0.9); Monocytes % 6.2 %; Neutrophils # 7.24 10^3/uL (1.8-7.7); Neutrophils % 69.9 %; Nucleated Red Blood Cells % 0 %; Platelet Count 306 10^3/cmm (130-400); Red Blood Count 4.53 10^6/uL (4.1-5.3); Red Cell Distribution Width 12.4 % (12.1-15.1); White Blood Count 10.4 10^3/uL (4.0-10.0)
--- NOTE | 2021-11-29 15:13 | CTR_ITS ---
PROCEDURE INFORMATION: Exam: CT Abdomen And Pelvis Without Contrast Exam date and time: 11/29/2021 4:42 PM Age: 36 years old Clinical indication: Pain; Vomiting; Prior surgery; Surgery date: <1 month; Surgery type: Lap burton; Additional info: R abdominal pain, recent lap burton; Still has appendix TECHNIQUE: Imaging protocol: Computed tomography of the abdomen and pelvis without contrast. COMPARISON: US abdomen limited [id number] 09/23/2019 4:17 PM RADIATION DOSE METRICS: Total DLP (mGy-cm): 1671.83 FINDINGS: Liver: Diffuse hepatic steatosis. No evident mass. Some residual inflammation adjacent to the inferior aspect of the right hepatic lobe likely in relation to recent laparoscopic cholecystectomy. Gallbladder and bile ducts: Cholecystectomy. No ductal dilation. Pancreas: Normal. No ductal dilation. Spleen: Normal. No splenomegaly. Adrenal glands: Normal. No mass. Kidneys and ureters: No renal stones. No hydronephrosis. Stomach and bowel: Unremarkable. No obstruction. No mucosal thickening. Appendix: No evidence of appendicitis. Intraperitoneal space: Unremarkable. No free air. No significant fluid collection. Vasculature: Unremarkable. No abdominal aortic aneurysm. Lymph nodes: Unremarkable. No enlarged lymph nodes. Urinary bladder: Unremarkable as visualized. Reproductive: Unremarkable as visualized. Bones/joints: No acute fracture. Soft tissues: Unremarkable. CT/CT abdomen pelvis con [id number] IMPRESSION: 1. No acute findings. 2. Diffuse hepatic steatosis.
[2021-11-29 15:36] LABS: Lactic Sepsis W/Reflex 0.9 mmol/L (0.5-2.2)
[2021-11-29 15:38] LABS: Alanine Aminotransferase 38 U/L (0-33); Albumin Level 3.9 g/dL (3.5-5.2); Alkaline Phosphatase 94 U/L (35-105); Anion Gap 16.7 (5-19); Aspartate Amino Transferase 25 U/L (0-32); Blood Urea Nitrogen 8 mg/dL (6-20); Calcium 8.6 mg/dL (8.5-10.5); Carbon Dioxide 23 mmol/L (22-29); Chloride 102 mmol/L (98-107); Globulin 3.5 g/dL (1.3-4.6); Glomerular Filtration Rate 81.6 mL/min (90-130); Glucose 96 mg/dL (65-115); Lipase 32 U/L (13-60); Osmolality Calculated 284 mOsm/kg (285-295); Potassium 3.7 mmol/L (3.5-5.1); Sodium 138 mmol/L (136-145); Total Bilirubin 0.5 mg/dL (0.15-1.2); Total Protein 7.4 g/dL (6.6-8.7)
[2021-11-29 15:39] LABS: HCG, Serum Qual Negative (Negative)
[2021-11-29] MEDS: TRAMadol 50 mg Tablet PO (16:22)
[2021-11-29 16:32] LABS: Add Urine Microscopic? NO; Charge for UA Resulting for Rev
[2021-11-29 16:41] LABS: Bilirubin Urine Neg (Negative); Blood Urine Neg (Negative); Glucose Urine UA Norm (Normal); Ketones Urine 1+ (Negative); Leukocyte Esterase Urine Negative (Negative); Nitrate Urine Negative (Negative); Protein Urine Neg (Negative); Urine Appearance Clear (CLEAR); Urine Color Yellow (Yellow); Urobilinogen Urine Norm (Negative); pH Urine 5 (5-7)
[2021-11-29] MEDS: ondansetron 2 mg/ML SDV 2 mL 4 MG IVP (17:08)
== END 2021-11-29 17:41 | disposition home or self-care (01) ==
PROVIDERS: Emergency Medicine; Emergency Provider Physician Assistant; PCP Nurse Practitioner Family
DX: R10.9 Unspecified abdominal pain (principal)
CPT/HCPCS: 36415; 74176; 80053; 81003; 83605; 83690; 84703; 85025; 96374; 99285; J2405

== ENCOUNTER 2022-08-31 13:21 | Outpatient (CLI) | payer BC, SELFPAY ==
--- NOTE | 2022-08-31 13:42 | MR_ITS ---
WS: [id number] MRI RIGHT SHOULDER NONCONTRAST TECHNIQUE: Sagittal T2, coronal T1, T2 and proton density imaging. Axial gradient PDE imaging. CLINICAL INFORMATION: R SHOULDER JOINT PAIN COMPARISON: None. FINDINGS: Mild degenerative arthritis AC joint with mild edema. Mild downsloping acromion with subacromial spur ring. Impingement on the distal supraspinatus. Tendinopathy distal supraspinatus. Tiny insertional te ar at the distal supraspinatus and infraspinatus. Mild chronic thinning of the distal supraspinatus. Normal teres minor minor. Normal subscapularis. Biceps labral anchor appears intact. Normal biceps te ndon in the bicipital groove. MR/MR shoulder RT wo con* [id number] IMPRESSION: 1. Mild degenerative arthritis AC joint with mild edema. Slight subacromial sp urring. 2. Impingement on the distal supraspinatus with tendinopathy. Tiny insertional tears distal supraspinatus and infraspinatus. 3. Rotator cuff is otherwise normal. 4. Normal biceps tendon in the bicipital groove. 5. No other suspicious findings.
== END 2022-08-31 13:22 | disposition home or self-care (01) ==
PROVIDERS: PCP Nurse Practitioner Family; Visit Provider Nurse Practitioner Family
DX: M19.011 Primary osteoarthritis, right shoulder (principal); M75.101 Unspecified rotator cuff tear or rupture of right shoulder, not specified as traumatic
CPT/HCPCS: 73221

== ENCOUNTER 2023-11-23 15:28 | Outpatient (CLI) | payer MEDICAID, SELFPAY ==
--- NOTE | 2023-11-23 15:40 | XR_ITS ---
WS: [id number] XR hip RT 2-3V wo/w pel* [id number] REASON FOR EXAM: RIGHT HIP PAIN FINDINGS: No fracture or focal bone lesion. Moderate narrowing of the joint space. Moderate subchondral sclerosis and osteophytosis of the acetab ulum. Mild osteophytosis of the femoral head. XR/XR hip RT 2-3V wo/w pel* [id number] IMPRESSION: Moderate osteoarthritis of the right hip.
== END 2023-11-23 15:29 | disposition home or self-care (01) ==
LOC: RAD 15:31
PROVIDERS: PCP Nurse Practitioner Family; Visit Provider Nurse Practitioner Family
DX: M16.11 Unilateral primary osteoarthritis, right hip (principal); M25.751 Osteophyte, right hip; M24.151 Other articular cartilage disorders, right hip
CPT/HCPCS: 73502

== ENCOUNTER → 2023-12-31 15:22 | Outpatient (BNVA) | payer MEDICAID, SELFPAY | PROVIDERS: PCP Nurse Practitioner Family; Referring Provider Nurse Practitioner Family; Visit Provider Obstetrics & Gynecology | DX: E28.2 Polycystic ovarian syndrome (principal) | CPT/HCPCS: 83001; 84146; 84443 ==

== ENCOUNTER 2024-02-22 13:41 | Outpatient (CLI) | payer MEDICAID, SELFPAY ==
--- NOTE | 2024-02-22 13:45 | MR_ITS ---
WS: [id number] MRI BRAIN WITHOUT AND WITH CONTRAST, ATTENTION DIRECTED TO THE PITUITARY GLAND HISTORY: E22.1 - Hyperprolactinemia COMPARISON: None available. TECHNIQUE: Diffusion-weighted imaging, axial T2 sequence, and postcontrast images in 3 planes are per formed. High-resolution coronal and sagittal imaging performed through the pituitary region with and without intravenous gadolinium. MultiHance 20 mL. Pituitary gland: Normal hide the pituitary gland for patient's age. No deviation of the optic chiasm or infundibulum. There is normal enhancement of the pituitary gland. There is no microadenoma or macr oadenoma. No acute or chronic infarcts. Normal appearance of the lund-white matter. No hemorrhage or prior infa rct or small vessel disease. There is mild displacement of the cerebellar tonsils below the foramen m agnum by 7.3 mm consistent with a mild Chiari I malformation. Short segment of the cervical cord is n egative. No hippocampal atrophy. Small mucous retention cyst in the RIGHT maxillary sinus. No air-fluid levels. Normal mastoid air meeta ls. MR/MR pituitary wo/w con* [id number] IMPRESSION: 1. Normal pituitary gland. No microadenoma or macroadenoma. 2. Chiari I malformation. Cerebellar tonsils extend 7.3 mm below the foramen m agnum. 3. No hydrocephalus.
[2024-02-22] MEDS: gadobenate dimeglumine 20 mL vial IV (15:31)
== END 2024-02-22 13:42 | disposition home or self-care (01) ==
LOC: RAD 13:41
PROVIDERS: PCP Nurse Practitioner Family; Visit Provider Obstetrics & Gynecology
DX: G93.5 Compression of brain (principal); E22.1 Hyperprolactinemia; J34.1 Cyst and mucocele of nose and nasal sinus
CPT/HCPCS: 70553

== ENCOUNTER → 2024-05-22 15:17 | Outpatient (BNVA) | payer MEDICAID, SELFPAY | PROVIDERS: PCP Nurse Practitioner Family; Visit Provider Obstetrics & Gynecology | DX: E22.1 Hyperprolactinemia (principal) | CPT/HCPCS: 84146 ==

== ENCOUNTER → 2024-06-06 15:30 | Outpatient (BNVA) | payer MEDICAID, SELFPAY | PROVIDERS: PCP Nurse Practitioner Family; Visit Provider Obstetrics & Gynecology | DX: E28.2 Polycystic ovarian syndrome (principal); D25.9 Leiomyoma of uterus, unspecified | CPT/HCPCS: 76830 ==

== ENCOUNTER → 2024-07-07 14:01 | Outpatient (BNVA) | payer MEDICAID, SELFPAY | PROVIDERS: PCP Nurse Practitioner Family; Visit Provider Nurse Practitioner Women's Health | DX: N91.2 Amenorrhea, unspecified (principal) | CPT/HCPCS: 84702 ==

== ENCOUNTER → 2024-07-17 15:05 | Outpatient (BNVA) | payer MEDICAID, SELFPAY | PROVIDERS: PCP Nurse Practitioner Family; Visit Provider Nurse Practitioner Women's Health | DX: E03.9 Hypothyroidism, unspecified (principal); E22.1 Hyperprolactinemia; E66.9 Obesity, unspecified; E28.2 Polycystic ovarian syndrome; Z36.9 Encounter for antenatal screening, unspecified; O20.9 Hemorrhage in early pregnancy, unspecified | CPT/HCPCS: 76801; 81025; 83036; 84146; 84439; 84443; 86376 ==

== ENCOUNTER → 2024-07-31 10:17 | Outpatient (BNVA) | payer MEDICAID, SELFPAY | PROVIDERS: PCP Nurse Practitioner Family; Referring Provider Obstetrics & Gynecology; Visit Provider Psychiatry & Neurology Neurology | DX: G93.5 Compression of brain (principal); G43.019 Migraine without aura, intractable, without status migrainosus; G44.86 Cervicogenic headache; S16.1XXA Strain of muscle, fascia and tendon at neck level, initial encounter; X58.XXXA Exposure to other specified factors, initial encounter | CPT/HCPCS: 99203 ==

== ENCOUNTER → 2024-08-01 08:08 | Outpatient (BNVA) | payer MEDICAID, SELFPAY | PROVIDERS: PCP Nurse Practitioner Family; Visit Provider Nurse Practitioner Women's Health | DX: Z34.90 Encounter for supervision of normal pregnancy, unspecified, unspecified trimester (principal) | CPT/HCPCS: 80307; 82950; 84315; 85025; 86592; 86762; 86803; 86850; 86900; 87086; 87340; 87806 ==

== ENCOUNTER → 2024-08-07 12:48 | Outpatient (BNVA) | payer MEDICAID, SELFPAY | PROVIDERS: PCP Nurse Practitioner Family; Visit Provider Nurse Practitioner Family | DX: L72.0 Epidermal cyst (principal); L73.8 Other specified follicular disorders; L81.4 Other melanin hyperpigmentation; D22.5 Melanocytic nevi of trunk; L83 Acanthosis nigricans; L91.8 Other hypertrophic disorders of the skin; R20.9 Unspecified disturbances of skin sensation; R20.8 Other disturbances of skin sensation; R23.8 Other skin changes; Z78.9 Other specified health status; L29.89 Other pruritus; R58 Hemorrhage, not elsewhere classified | CPT/HCPCS: 17110; 99213 ==

== ENCOUNTER → 2024-08-14 09:36 | Outpatient (BNVA) | payer MEDICAID, SELFPAY | PROVIDERS: PCP Nurse Practitioner Family; Visit Provider Nurse Practitioner Women's Health | DX: Z34.80 Encounter for supervision of other normal pregnancy, unspecified trimester (principal); Z34.90 Encounter for supervision of normal pregnancy, unspecified, unspecified trimester | CPT/HCPCS: 84315; 87491; 87591; 87624; 87661 ==

== ENCOUNTER → 2024-09-11 10:05 | Outpatient (BNVA) | payer MEDICAID, SELFPAY | PROVIDERS: PCP Nurse Practitioner Family; Visit Provider Nurse Practitioner Women's Health | DX: E03.9 Hypothyroidism, unspecified (principal); E22.1 Hyperprolactinemia; Z34.80 Encounter for supervision of other normal pregnancy, unspecified trimester; Z34.90 Encounter for supervision of normal pregnancy, unspecified, unspecified trimester | CPT/HCPCS: 82105; 84146; 84315; 84443 ==

== ENCOUNTER 2024-09-14 21:01 | Emergency (ER) | payer MEDICAID, SELFPAY ==
[2024-09-14 21:28] VITALS: BP 143/87; PULSE 106; RESP 16; TEMP 36.6; O2SAT 97; BMI 45.1
[2024-09-14 22:15] LABS: Bilirubin Urine Negative (Negative); Blood Urine 2+ (Negative); Glucose Urine UA Negative (Normal); Ketones Urine Negative (Negative); Leukocyte Esterase Urine Negative (Negative); Nitrate Urine Negative (Negative); Protein Urine Negative (Negative); Specific Gravity, Urine 1.024 (1.005-1.030); Urine Appearance Clear (CLEAR); Urine Color Yellow (Yellow); Urobilinogen Urine 0.2 mg/dL (Negative); pH Urine 5.5 (5-7)
[2024-09-14 22:22] LABS: Bacteria Urine None Seen /hpf; Hyaline Casts Urine 0-4 /lpf; Squamous Epithelial Cell Urine 0-5 /hpf (0-5); WBC Urine 0-5 /hpf (0-5)
[2024-09-14 22:31] VITALS: BP 129/85; PULSE 96; O2SAT 96
[2024-09-14 22:42] LABS: Basophils % 0.2 %; Eosinophils # 0.3 10^3/uL (0.0-0.8); Eosinophils % 2.8 %; Hematocrit 34.8 % (36-47); Lymphocytes # 2.4 10^3/uL (0.8-4.8); Lymphocytes % 23.3 %; Mean Corpuscular HGB Conc 34.2 g/dL (30-55); Mean Corpuscular Hemoglobin 31.1 pg (27-33); Mean Corpuscular Volume 90.9 fl (85-98); Mean Platelet Volume 9.1 fL (7.4-10.4); Monocytes # 0.6 10^3/uL (0.2-0.9); Monocytes % 5.8 %; Neutrophils # 6.88 10^3/uL (1.8-7.7); Neutrophils % 67.4 %; Nucleated Red Blood Cells % 0 %; Platelet Count 276 10^3/cmm (157-399); Red Blood Count 3.83 10^6/uL (3.85-5.65); Red Cell Distribution Width 12.9 % (12.1-15.1); White Blood Count 10.21 10^3/uL (3.29-11.43)
[2024-09-14 23:00] VITALS: BP 141/73; PULSE 84; O2SAT 96
[2024-09-14 23:19] LABS: Alanine Aminotransferase 10 U/L (0-33); Albumin Level 3.5 g/dL (3.5-5.2); Alkaline Phosphatase 44 U/L (35-105); Anion Gap 15.5 (5-19); Aspartate Amino Transferase 10 U/L (0-32); Blood Urea Nitrogen 7 mg/dL (6-20); Calcium 8.7 mg/dL (8.5-10.5); Carbon Dioxide 20 mmol/L (22-29); Chloride 103 mmol/L (98-107); Creatinine Clr Calc Pharmacy 208.0376; Glomerular Filtration Rate 138.1 mL/min (90-130); Glucose 92 mg/dL (65-115); Osmolality Calculated 278 mOsm/kg (285-295); Potassium 3.5 mmol/L (3.5-5.1); Sodium 135 mmol/L (136-145); Total Bilirubin 0.3 mg/dL (0.15-1.2); Total Protein 6.5 g/dL (6.6-8.7)
--- NOTE | 2024-09-15 00:24 | ED_ITS ---
HPI - 2 General: Chief complaint: Vaginal Bleeding Stated complaint: 17 Wks Preg Wants to Know id Baby OK Time Seen by Provider: 09/14/24 22:10 History of Present Illness: 39-year-old female patient presents to [facility] emergency department stating she is 17 weeks . Patient states that she has a known subchorionic hemorrhage. Patient states she started having some mild spotting tonight and was concerned. Patient denies any abdominal pain pelvic pain or vaginal pain or back pain. Patient states she is here and would like an ultrasound to make sure baby is okay. Patient denies any urinary symptoms. Patient denies any fever. Patient denies any trauma or injury. Related Data Home Medications ?Medication ?Instructions ?Recorded ?Confirmed Vitamin B 12 Gummies 2 tab PO DAILY 10/09/1908/15 multivitamin with minerals-folic 400 mcg PO DAILY 09/1509/11/24 acid 200 mcg chewable tablet (Adult Multivitamin Gummies) levothyroxine 75 mcg tablet 75 mcg PO DAILY 07/17/24 0 09/11/24 (Levoxyl) famotidine 20 mg tablet (Pepcid) 20 mg PO DAILY 09/11/24 pyridoxine (vitamin B6) 50 mg 50 mg PO BID 08/01/24 capsule (Vitamin B-6) otbminfpdt-aykxkdmjqamti-xxuxqfpa 1 cap PO Q8H PRN 05/1009/11/24 50 mg-300 mg-40 mg capsule Allergies Allergy/AdvReac Type Severity Reaction Status Date / Time oxycodone Allergy Intermediate itch Verified 09/11/24 10:14 codeine Allergy ADR-Itching Verified 09/14/24 21:31 Review of Systems 2 General: Reports: 10 or more systems reviewed and unremarkable except in HPI and below PFSH ED 2 PFSH: Medical History Hyperprolactinemia No pertinent past medical history neghx: htn, dm, dvt/pe PCP: Favio or Heather Inability to conceive, female Hypothyroidism Polycystic ovarian syndrome Obesity Surgical History Status post laparoscopic cholecystectomy (11/18/21) History of sinus surgery 12/2019 History of tonsillectomy (~2008) History of nasal surgery (~2008) Treatment deviated septum History of foot surgery (~2010) Right foot History of D&C History of delivery (05/03/12) Induced at 37 wks due to low LOLITA. FTP after [address] Chua in [place], [place]. History of colonoscopy 10/2014: Performed by Dr. Molina at [facility]. Family History Mother , Age 56 from colon cancer Thyroid disease Colon cancer Hypertension Family/Other Thyroid disease maternal aunt Breast cancer Great great grandmother Hypertension Paternal aunt Father Diabetes Denies family history of Ovarian cancer Prostate cancer Heart disease Hyperlipidemia Uterine cancer Stroke Social History Smoking and tobacco/nicotine status: former use of tobacco/nicotine Physical Exam 2 Narrative: EXAM NARRATIVE: Constitutional: Well-nourished, cooperative, well kept in no distress. GI: Soft, Nontender, no masses. abdomen. Neuro: Normal gait and station. Psych: Affect and mood are normal. Skin: Normal skin moisture and warmth. Course 2 Vital Signs: Vital signs: Vital Signs Temperature 97.8 F 09/14/24 21:28 Pulse Rate 84 09/14/24 23:00 Respiratory Rate 16 09/14/24 21:28 Blood Pressure 141/73 09/14/24 23:00 Pulse Oximetry 96 09/14/24 23:00 Oxygen Delivery Me thod Room Air 09/14/24 22:31 MDM - OB/Uterine Contractions Medical Decision Making 70-year-old female patient presents to the emergency department with erythema and tenderness to the AC space on her left arm. Patient states she was just discharged from the hospital and had an IV in that arm went home and noticed the swelling and tenderness. Patient denies any fever. Patient denies any chest pain or shortness of breath. Labs are reassuring at this time. Ultrasound will be limited as pending. Care will be transitioned to Dr. Hodges at this time. Lab Data 09/14/24 22:31 09/14/24 22:31 Laboratory Results WBC 10.21 10^3/uL (3.29-11.43) 09/14/24: RBC 3.83 10^6/uL (3.85-5.65) L 09/14/24: Hgb 11.90 g/dL (11.27-16.99) 09/14/24: Hct 34.8 % (36-47) L 09/14/24: MCV 90.9 fl (85-98) 09/14/24: MCH 31.1 pg (27-33) 09/14/24: MCHC 34.2 g/dL (30-55) 09/14/24: RDW 12.9 % (12.1-15.1) 09/14/24: Plt Count 276 10^3/cmm (157-399) 09/14/24: MPV 9.1 fL (7.4-10.4) 09/14/24: Neut % (Auto) 67.4 % 09/14/24: Lymph % (Auto) 23.3 % 09/14/24: Waller % (Auto) 5.8 % 09/14/24: Eos % (Auto) 2.8 % 09/14/24: Baso % (Auto) 0.2 % 09/14/24 Neut # (Auto) 6.88 10^3/uL (1.8-7.7) 09/14/24: Lymph # (Auto) 2.4 10^3/uL (0.8-4.8) 09/14/24: Waller # (Auto) 0.6 10^3/uL (0.2-0.9) 09/14/24: Eos # (Auto) 0.3 10^3/uL (0.0-0.8) 09/14/24: Baso # (Auto) 0.0 10^3/uL (0.0-0.1) 09/14/24: Nucleated RBC % (auto) 0 % 09/14/24: Nucleated RBCs # 0.0 /100WBC 09/14/24: Sodium 135 mmol/L (136-145) L 06/01/25 22:31 Potassium 3.5 mmol/L (3.5-5.1) 09/14/24 22: Chloride 103 mmol/L (98-107) 09/14/24 22: Carbon Dioxide 20 mmol/L (22-29) L 09/14/24 22: Anion Gap 15.5 (5-19) 09/14/24 22: BUN 7 mg/dL (6-20) 09/14/24: Creatinine 0.5 mg/dL (0.5-0.9) 09/14/24 22: GFR Calculation 138.1 mL/min (90-130) H 09/14/24: Glucose 92 mg/dL (65-115) 09/14/24: Calculated Osmolality 278 mOsm/kg (285-295) L 09/14/24: Calcium 8.7 mg/dL (8.5-10.5) 09/14/24: Total Bilirubin 0.3 mg/dL (0.15-1.2) 09/14/24: AST 10 U/L (0-32) 09/14/24: ALT 10 U/L (0-33) 09/14/24: Alkaline Phosphatase 44 U/L (35-105) 09/14/24: Total Protein 6.5 g/dL (6.6-8.7) L 09/14/24: Albumin 3.5 g/dL (3.5-5.2) 09/14/24: Globulin 3.0 g/dL (1.3-4.6) 09/14/24 22: Ser , Semi-Qnt 87772.00 mIU/mL 09/14/24 22:31 Urine Color Yellow (Yellow) 09/14/24 21:42 Urine Appearance Clear (CLEAR) 09/14/24 21: Urine pH 5.5 (5-7) 09/14/24: Ur Specific [place] 1.024 (1.005-1.030) 09/14/24 21:42 Urine Protein Negative (Negative) 09/14/24 21: Urine Glucose (UA) Negative (Normal) 09/14/24 21: Urine Ketones Negative (Negative) 09/14/24 21:42 Urine Blood 2+ (Negative) A 09/14/24 21:42 Urine Nitrate Negative (Negative) 09/14/24 21:42 Urine Bilirubin Negative (Negative) 09/14/24 21:42 Urine Urobilinogen 0.2 mg/dL (Negative) 09/14/24 21:42 Ur Leukocyte Esterase Negative (Negative) 09/14/24 21:42 Urine RBC 3-5 /hpf (0-2) 09/14/24 21:42 Urine WBC 0-5 /hpf (0-5) 09/14/24 21:42 Ur Squamous Epith Cells 0-5 /hpf (0-5) 09/14/24 21:42 Amorphous Sediment Not Reportable 09/14/24 21:42 Urine Bacteria None seen /hpf (NONE) 09/14/24 21:42 Hyaline Casts 0-4 /lpf H 09/14/24 21:42 All radiology interpretation(s) finalized by discharge Discharge Plan Discharge Condition: Stable Prescriptions: No Action levothyroxine [Levoxyl] 75 mcg tablet 75 mcg PO DAILY famotidine [Pepcid] 20 mg tablet 20 mg PO DAILY Vitamin B-6 50 mg capsule 50 mg PO BID fbofvbllen-aqwfwzvjwyrzj-bjse 50-300-40 mg capsule 1 cap PO Q8H PRN Adult Multivitamin Gummies 200 mcg Tablet,Chewable 400 mcg PO DAILY Vitamin B 12 Gummies 2 tab PO DAILY Referrals: Nely Romero, [employer] [Primary Care Provider, Unknown] Print Language: Guinean Coding Level of Care Code ED Environmental Sustainability Manager for Bridgetg Lynsey
[2024-09-15 00:49] VITALS: BP 137/73; PULSE 91; O2SAT 97
[2024-09-15 02:00] VITALS: BP 131/84; PULSE 94; O2SAT 98
[2024-09-15 03:09] VITALS: BP 128/76; PULSE 93; O2SAT 97
--- NOTE | 2024-09-15 23:13 | USR_ITS ---
PROCEDURE INFORMATION: Exam: US , Limited Exam date and time: 09/15/2024 12:44 AM Age: 39 years old Clinical indication: Lmp or gestational age (in weeks): 17 weeks per patient. Due date 02-22-2025; Antepartum complications; Bleeding; ; Prior surgery; Surgery date: 6+ months; Surgery type: C section; Additional info: Vag bleeding TECHNIQUE: Imaging protocol: Real-time ultrasound of the maternal uterus with image documentation. Exam focused on the clinical indication. COMPARISON: US OB <= 14 weeks fetus [id number] 07/17/2024 3:10 PM FINDINGS: Single living fetus in cephalic position. heart activity documented by the technologist, 148 bpm. Anterior placenta. Probable small placental philippe present. No placenta previa or other definite placental abnormality on the provided images. Amniotic fluid volume within normal limits. Cervical length was estimated with transabdominal scanning, measuring approximately 3.2 cm. No definite cervical canal dilation or fluid on the provided images. measurements were not obtained at this time. Detailed evaluation of anatomy was not performed at this time. No visible maternal adnexal abnormality. The urinary bladder was not completely evaluated/imaged at this time. US/US OB limited [id number] IMPRESSION: 1. Single living fetus, details above. 2. Anterior placenta. No placenta previa or other significant placental abnormality on the provided images. 3. Normal amniotic fluid volume. 4. Other details discussed above.
== END 2024-09-15 02:49 | disposition home or self-care (01) ==
PROVIDERS: Emergency Provider Emergency Medicine; PCP Nurse Practitioner Family
DX: O20.9 Hemorrhage in early pregnancy, unspecified (principal); Z3A.17 17 weeks gestation of pregnancy; Z87.891 Personal history of nicotine dependence
CPT/HCPCS: 36415; 76815; 80053; 81001; 84702; 85025; 99284

== ENCOUNTER → 2024-10-14 09:25 | Outpatient (BNVA) | payer MEDICAID, SELFPAY | PROVIDERS: PCP Nurse Practitioner Family; Visit Provider Nurse Practitioner Women's Health | DX: Z34.92 Encounter for supervision of normal pregnancy, unspecified, second trimester (principal); Z3A.21 21 weeks gestation of pregnancy | CPT/HCPCS: 76805 ==

== ENCOUNTER → 2024-10-22 13:47 | Outpatient (BNVA) | payer MEDICAID, SELFPAY | PROVIDERS: PCP Nurse Practitioner Family; Visit Provider Nurse Practitioner Women's Health | DX: Z34.80 Encounter for supervision of other normal pregnancy, unspecified trimester (principal) | CPT/HCPCS: 84315 ==

== ENCOUNTER → 2024-11-06 10:12 | Outpatient (BNVA) | payer MEDICAID, SELFPAY | PROVIDERS: PCP Nurse Practitioner Family; Visit Provider Nurse Practitioner Women's Health | DX: Z34.90 Encounter for supervision of normal pregnancy, unspecified, unspecified trimester (principal); Z34.80 Encounter for supervision of other normal pregnancy, unspecified trimester | CPT/HCPCS: 82950; 84315 ==

== ENCOUNTER → 2024-11-10 09:50 | Outpatient (BNVA) | payer MEDICAID, SELFPAY | PROVIDERS: PCP Nurse Practitioner Family; Visit Provider Nurse Practitioner Women's Health | DX: O34.219 Maternal care for unspecified type scar from previous cesarean delivery (principal) | CPT/HCPCS: 82950 ==

== ENCOUNTER → 2024-12-05 11:29 | Outpatient (BNVA) | payer MEDICAID, SELFPAY | PROVIDERS: PCP Nurse Practitioner Family; Visit Provider Obstetrics & Gynecology | DX: Z34.80 Encounter for supervision of other normal pregnancy, unspecified trimester (principal); E03.9 Hypothyroidism, unspecified; E22.1 Hyperprolactinemia | CPT/HCPCS: 82951; 82952; 84146; 84439; 84443; 84481; 85025 ==

== ENCOUNTER 2025-02-17 05:09 | Inpatient (IN) | payer MEDICAID, SELFPAY ==
--- OUTSIDE RECORDS SUMMARY | 2012-05-02 10:53 | XMS_ITS | Continuity of Care Document ---
Author Organization [facility] Address [address] [place] [id number] Phone Care Team Providers Care Student Worker Name Role Phone Unavailable Unavailable Unavailable Advance Directives Directive Yes / No Effective Date File Name No Information Encounters Encounter Description Practice Location Reason(s) For Visit Diagnoses Date Provider Providers Copied on Encounter [facility], [address] [place] [address], [place], [place], [id number], tel:[phone] [facility] No Information No Information Family History Family Member Type Diagnosis Age At Onset No Information Payers Payer name Insurance type Covered democrat ID Authoriza tion(s) No Information Social History Type Description Quantity Date Captured Comments Sex Female Smoking Status No Information Chief Complaint And Reason For Visit No Information Reason For Referral Reason For Referral No Information History Of Present Illness Encounter Date Complaint History Of Prese nt Illness No Information Functional Status Date Functional Assessmen t No Information Instructions Date Instruction Additional Infor mation No Information Assessments Type Assessment Date No Information Patient Care Teams Name Effective Dates (start - stop) Status Members No Information
--- OUTSIDE RECORDS SUMMARY | 2024-02-09 03:00 | XMS_ITS ---
Author Organization [facility] Address [address] [place] [address] Support Name Relationship Address , Benigno Parnell Emergency Contact Unknown Unavailable Shila Cervantes Guarantor Unknown Unavailable Care Team Providers Care Senior Materials Planner Name Role Phone Edy Collins Primary Care Provider Unavailabl e Migration, Provider Unavailable Unavailable REASON FOR VISIT EMR-Albert Encounters Encounter Location Date Provider Diagnosis Migrated_Facility 0 0 02/09/2024 Provider Migration Plan Of Treatment No Information Progress Notes * Denise CERVANTESB:1985 (39 yo F)Acc No.[id number]:02/09/2024 Patient: Bebeto Shila KILLIAN :1985 A ge:38 Y S ex:Female Phone: Address:[address] [place] [address], [phone] Subjective: * Chief Complaints: * E MR-Albert * * Date:
--- OUTSIDE RECORDS SUMMARY | 2024-02-10 03:00 | XMS_ITS ---
Author Organization [facility] Address [address] [place] [address] Support Name Relationship Address , Benigno Parnell Emergency Contact Unknown Unavailable Shila Cervantes Guarantor Unknown Unavailable Care Team Providers Care Director Stars Name Role Phone Edy Collins Primary Care Provider Unavailabl e Migration, Provider Unavailable Unavailable Allergies Allergen (clinical drug ingredient) Drug/Non Drug Allergy documented on EMR Reaction Allergy Type Onset Date Status codeine Codeine Unknown Drug Allergy Active REASON FOR VISIT EMR-Albert Medications Medication SIG (Take, Route, Frequency, Duration) Notes Start Date End Date Status Ibuprofen *Pick strength-f orm from [facility] for eRX* Active Social History Social History [...] Notes * Denise CERVANTESB:1985 (39 yo F)Acc No.[id number]:02/10/2024 Patient: Bebeto KILLIAN Shila :1985 A ge:38 Y S ex:Female Phone: Address:[address] [place] [address], [phone] Subjective: * Chief Complaints: * E MR-Albert [...]
[2025-02-17] VITALS (37 sets, daily range): BP systolic 107–159; BP diastolic 57–95; PULSE 76–106; RESP 16–18; TEMP 36.9–37.1; O2SAT 97–100; BMI 50.0
--- OUTSIDE RECORDS SUMMARY | 2025-02-17 05:12 | XMS_ITS | Clinical Summary ---
Author Organization [facility] Address [address] Santacruz: Epic Prelude ADT [place] [address] Care Team Providers Care Coper Hand Name Role Phone Romel Harrison MD Primary Care Provider [phone] Allergies Active Allergy Reactions Criticality Noted Date Comments Oxycodone Hives High 12/16/2012 Medications diphenhydrAMINE (BENADRYL) 25 mg tablet Take 50 mg by mouth every 6 hours as needed for Allergies. 05/05/2014 Active levothyroxine 75 mcg tablet Take 75 mcg by mouth daily in the morning. Active VIT-IRON FUM-FOLIC AC ORAL Take by mouth. Active nitrofurantoin (MACROBID) 100 mg capsule Take 100 mg by mouth 2 times daily. Active Active Problems Estimated Date of Delivery Comme nts Yes 02/22/2025 No known active problems Encounters Date Type Department Care Team Description 11/22/2024 4:26 PM CDT - 11/22/2024 6:40 PM CDT Emergency [facility] Emergency Medicine [address] [place] [address] Costochondritis (Primary Dx) Discharge Disposition: Home or Self Care 11/22/2024 Travel from Last 3 Months Family History Medical History Relation Name Comments Diabetes Father Heart Disease Father Healthy Mother Relation Name Status Comments Father Alive Mother Alive Social History Tobacco Use Types Packs/Day Years Used Date Smoking Tobacco: Never Smokeless Tobacco: Never Alcohol Use Standard Drinks/Week Comments No 0 (1 standard drink = 0.6 oz pur e alcohol) Feeling Safe Answer Date Recorded Are you in a relationship wi th someone who hurts you emotionally and/or physically? 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 Gender Identity Not on file Sexual Orientation Not on file Last Filed Vital Signs Vital Sign Reading Time Taken Comments Blood Pressure 131/77 11/22/2024 6:30 PM CDT Pulse 100 11/22/2024 6:30 PM CDT Temperature 36.3 C (97.3 F) 11/22/2024 4:29 PM CDT Respiratory Rate 20 11/22/2024 6:30 PM CDT Oxygen Saturation 97% 11/22/2024 6:30 PM CDT Inhaled Oxygen Concentration - - Weight 130.7 kg (288 lb 3.2 oz) 11/22/2024 4:29 PM CDT Height 167.6 cm (5' 6 ) 11/22/2024 4:29 PM CDT Body Mass Index 46.52 11/22/2024 4:29 PM CDT Plan of Treatment Health Maintenance Due Date Last Done Comments HPV/Cotest (21-29) 09/04/2007 HPV VACCINES (1 - 3-dose SCD M series) 2013 HEPATITIS B VACCINES (2 of 3 - 3-dose series) 07/07/2015 06/09/2015, 01/28/2014, 10/20/1997 CERVICAL CANCER SCREENING 2016 HPV/Cotest (30-65) 2016 PAP SMEAR 2016 INFLUENZA VACCINE (#1) 2024 04/16/2015 DTAP/TDAP/TD VACCINES (7 - T d or Tdap) 09/17/2033 09/18/2023, 01/28/2014, 12/14/1992, Additional history exists RSV VACCINE (60+ or ) (No Doses Required) Completed Procedures Procedure Name Priority Date/Time Associated Diagnosis Comments LIPASE Stat 11/22/2024 5:11 PM CDT TROPONIN BASELINE, 5TH GEN Stat 11/22/2024 5:11 PM CDT TSH Stat 11/22/2024 5:11 PM CDT COMPREHENSIVE METABOLIC PANEL Stat 11/22/2024 5:11 PM CDT CBC WITH DIFFERENTIAL Stat 11/22/2024 5:11 PM CDT EKG 12-LEAD Stat 11/22/2024 5:05 PM CDT URINALYSIS W/REFLEX MICROSCOPIC Stat 11/22/2024 5:05 PM CDT from Last 3 Months Results * TROPONIN BASELINE, 5TH GEN (11/22/2024 5:11 PM CDT) Pathologist [facility] TROPONIN T, BASELINE 5TH GEN <6 <=10 ng/L 11/22/2024 5:48 PM CDT [facility] Blood Venipuncture / Unknown 11/22/2024 5:11 PM CDT 11/22/2024 5:20 PM CDT Narrative [facility] - 11/22/2024 5:48 PM CDT Troponin Undetectable Esther Noble [facility] CHEMISTRY ORDERABLES Final Result [facility] CLIA # [id number] [address] [place] [address] * (ABNORMAL) CBC WITH DIFFERENTIAL (11/22/2024 5:11 PM CDT) Pathologist [facility] WBC 10.0 4.0 - 10.0 K/uL 11/22/2024 5:26 PM CDT [facility] RBC 3.80(L) 3.93 - 5.22 M/uL 11/22/2024 5:26 PM CDT [facility] HEMOGLOBIN 11.7 11.2 - 15.7 g/dL 11/22/2024 5:26 PM CDT [facility] HEMATOCRIT 33.8(L) 34.1 - 44.9 % 11/22/2024 5:26 PM [facility] MCV 88.9 79.4 - 94.8 fL 11/22/2024 5:26 PM [facility] MCH 30.8 25.6 - 32.2 pg 11/22/2024 5:26 PM [facility] MCHC 34.6 32.2 - 35.5 g/dL 11/22/2024 5:26 PM [facility] RDW 12.9 11.0 - 14.5 % 11/22/2024 5:26 PM [facility] RDW-STDEV 42.0 36.9 - 56.9 fL 11/22/2024 5:26 PM [facility] PLATELETS 267 163 - 337 K/uL 11/22/2024 5:26 PM [facility] MPV 9.1(L) 10.0 - 14.8 fL 11/22/2024 5:26 PM [facility] NEUTROPHILS 77(H) 34 - 71 % 11/22/2024 5:26 PM [facility] LYMPHOCYTES 13(L) 19 - 52 % 11/22/2024 5:26 PM [facility] MONOCYTES 6 5 - 13 % 11/22/2024 5:26 PM [facility] EOSINOPHILS 3 1 - 6 % 11/22/2024 5:26 PM [facility] BASOPHILS 0 0 - 1 % 11/22/2024 5:26 PM [facility] IMMATURE GRANULOCYTES 1 % 11/22/2024 5:26 PM [facility] NEUTROPHIL ABSOLUTE 7.69(H) 1.56 - 6.13 K/uL 11/22/2024 5:26 PM [facility] LYMPHOCYTE ABSOLUTE 1.33 1.20 - 3.40 K/uL 11/22/2024 5:26 PM [facility] MONOCYTE ABSOLUTE 0.62(H) 0.24 - 0.36 K/uL 11/22/2024 5:26 PM [facility] EOSINOPHIL ABSOLUTE 0.25 0.04 - 0.36 K/uL 11/22/2024 5:26 PM CDT [facility] BASOPHILS ABSOLUTE 0.02 0.01 - 0.08 K/uL 11/22/2024 5:26 PM CDT [facility] IMMATURE GRANULOCYTES ABSOLUTE 0.05 K/uL 11/22/2024 5:26 PM CDT [facility] Blood Venipuncture / Unknown 11/22/2024 5:11 PM CDT 11/22/2024 5:20 PM CDT us Esther Noble GRADES 1 THRU 5 TEACHER HEMATOLOGY ORDERABLES Final Result Performing Organization Address City/[facility]/ZIP Co de Phone Number [facility] CLIA # [id number] [address] [place] [address] * TSH (11/22/2024 5:11 PM CDT) TSH 1.54 0.27 - 4.20 uIU/mL 11/22/2024 5:48 PM CDT [facility] Blood Venipuncture / Unknown 11/22/2024 5:11 PM CDT 11/22/2024 5:20 PM CDT Esther Noble GRADES 1 THRU 5 TEACHER CHEMISTRY ORDERABLES Final Result Performing Organization Address City/[facility]/ZIP Co de Phone Number [facility] CLIA # [id number] [address] [place] [phone] * LIPASE (11/22/2024 5:11 PM CDT) LIPASE 39 13 - 60 U/L 11/22/2024 5:48 PM CDT [facility] Blood Venipuncture / Unknown 11/22/2024 5:11 PM CDT 11/22/2024 5:20 PM CDT us Esther Roberts Real GRADES 1 THRU 5 TEACHER CHEMISTRY ORDERABLES Final Result Performing Organization Address City/[facility]/ZIP Co de Phone Number [facility] CLIA # [id number] [address] [place] [phone] * (ABNORMAL) COMPREHENSIVE METABOLIC PANEL (11/22/2024 5:11 PM CDT) SODIUM 137 136 - 145 mmol/L 11/22/2024 5:48 PM [facility] POTASSIUM 3.4(L) 3.5 - 5.1 mmol/L 11/22/2024 5:48 PM [facility] CHLORIDE 105 98 - 107 mmol/L 11/22/2024 5:48 PM [facility] CO2 20(L) 22 - 29 mmol/L 11/22/2024 5:48 PM [facility] CALCIUM 8.9 8.6 - 10.0 mg/dL 11/22/2024 5:48 PM [facility] BUN 5(L) 6 - 20 mg/dL 11/22/2024 5:48 PM [facility] CREATININE 0.55 0.51 - 0.95 mg/dL 11/22/2024 5:48 PM [facility] GLUCOSE 135(H) 74 - 99 mg/dL 11/22/2024 5:48 PM [facility] TOTAL PROTEIN 6.3(L) 6.6 - 8.7 g/dL 11/22/2024 5:48 PM [facility] ALBUMIN 3.5 3.5 - 5.2 g/dL 11/22/2024 5:48 PM [facility] BILIRUBIN TOTAL 0.3 0.0 - 1.2 mg/dL 11/22/2024 5:48 PM [facility] ALKALINE PHOSPHATASE 65 35 - 104 U/L 11/22/2024 5:48 PM [facility] AST 13 0 - 35 U/L 11/22/2024 5:48 PM [facility] ALT 10 0 - 35 U/L 11/22/2024 5:48 PM [facility] GFR >60 >=60 mL/min/1.7 3 sq meter 11/22/2024 5:48 PM CDT [facility] Comment:eGFR calculated with 2020 CKD-EPI equation. Vegetarian diet, extremely high or low muscle mass, and may affect results. Cystatin C with Glomerular Filtration Rate is a suitable alternative for these patients. ANION GAP 12 5 - 20 mmol/L 11/22/2024 5:48 PM CDT [facility] Blood Venipuncture / Unknown 11/22/2024 5:11 PM CDT 11/22/2024 5:20 PM CDT us Esther UNDERWOOD CHEMISTRY ORDERABLES Final Result [facility] CLIA # [id number] [address] [place] [address] * EKG 12 lead (11/22/2024 5:05 PM CDT) Narrative Radha Ivy MD - 11/22/2024 5:05 PM CDT Radha Ivy MD 11/22/2024 9:58 PM EKG 12 lead Date/Time: 11/22/2024 5:05 PM Performed by: Esther Noble FNP Authorized by: Esther Noble FNP Rate: ECG rate: 94 ECG rate assessment: age appropriate Rhythm: Rhythm Origin: sinus Comments: Normal sinus rhythm us Esther UNDERWOOD ECG ORDERABLES Final Resul t * URINALYSIS WITH REFLEX MICROSCOPIC (11/22/2024 5:05 PM CDT) COLOR UA Yellow Pale to Dark Yellow 11/22/2024 5:30 PM CDT [facility] CLARITY UA Clear Clear 11/22/2024 5:30 PM CDT [facility] SPECIFIC GRAVITY UA 1.020 1.003 - 1.035 11/22/2024 5:30 PM CDT [facility] PH UA 6.5 5.0 - 8.0 11/22/2024 5:30 PM CDT [facility] LEUKOCYTE ESTERASE UA Negative Negative 11/22/2024 5:30 PM CDT [facility] NITRITE UA Negative Negative 11/22/2024 5:30 PM CDT [facility] PROTEIN UA Negative Negative 11/22/2024 5:30 PM CDT [facility] GLUCOSE UA Negative Negative 11/22/2024 5:30 PM CDT [facility] KETONES UA Negative Negative 11/22/2024 5:30 PM CDT [facility] UROBILINOGEN UA 0.2 <2.0 mg/dL 5:30 PM CDT [facility] BILIRUBIN UA Negative Negative 11/22/2024 5:30 PM CDT [facility] BLOOD UA Negative Negative 11/22/2024 5:30 PM CDT [facility] Urine URINE SPECIMEN OBTAINED BY CLEAN CATCH PROCEDURE / Unknown 11/22/2024 5:05 PM CDT 11/22/2024 5:20 PM CDT Esther Noble GRADES 1 THRU 5 TEACHER URINE ORDERABLES Final Resu lt [facility] CLIA # [id number] [address] [place] [address] from Last [address] [place] [address] [place] [address] [employer]ICA[employer] Care Teams Coper Hand Relationship Specialty Start Date End Date Romel Harrison MD PCP - General Otolaryngology 05/14/15
--- OUTSIDE RECORDS SUMMARY | 2025-02-17 05:12 | XMS_ITS | Patient Health Record ---
Author Organization [facility] Address [address] [place] [address] Support Name Relationship Address , Benigno Parnell Emergency Contact Unknown Unavailable Shila Tarango Guarantor Unknown Unavailable Care Team Providers Care Associate Professor Of Education Name Role Phone Edy Collins Primary Care Provider Unavailabl e Reason For Referral No Information Medications Medication SIG (Take, Route, Frequency, Duration) Notes Start Date End Date Status Ibuprofen *Pick strength-f orm from [facility] for eRX* Active Social History Social History [...] Smoking - No, Working currently? - Yes Plan Of Treatment No Information Medical (General) History Surgical History Surgery Date(Month/Year) section Tonsillectomy Colonoscopy Sinus surgery Right Foot Arch Mass Removed Deviated septum surgery D and C
--- OUTSIDE RECORDS SUMMARY | 2025-02-17 05:12 | XMS_ITS | Encounter Summary ---
Author Organization [facility] Address [address] [place] [address] Care Team Providers Care Stock Saw Operator Name Role Phone Romel Harrison MD Primary Care Provider Reason for Referral * Outpatient Services (Routine) - Closed Specialty Diagnoses / Procedures Referred By Susan kennedy Referred To Contact Radiology Diagnoses Abdominal pain Diarrhea Procedures US ABDOMEN LIMITED Vito Polanco Sr., FNP [address] [place] [address] Phone: tel: fax: [facility] [address] [place] [address] Phone: tel: fax: Referral ID Status Reason Start Date Expiration Date V isits Requested Visits Authorized [id number] Closed HIN View CTS to Schedule (SGF) 08/20/2014 09/20/2015 1 1 Encounter Details Date Type Department Care Team (Latest Contact Info) Description 08/20/2014 Ancillary Orders [facility] Scheduling [address] [place] [address] Vito Polanco Sr., FNP [address] [place], [place] [id number] Abdominal pain (Primary Dx); Diarrhea Social History Tobacco Use Types Packs/Day Years Used Date Smoking Tobacco: Never Smokeless Tobacco: Never Alcohol Use Standard Drinks/Week Comments No 0 (1 standard drink = 0.6 oz pur e alcohol) Comments No Sex and Gender Information Value Date Recorded Sex Assigned at Not on file Legal Sex Female 10:52 PM CDT Gender Identity Not on file Sexual Orientation Not on file documented as of this encounter Plan of Treatment Not on file documented as of this encounter Results * US ABDOMEN LIMITED (08/24/2014 12:10 PM CDT) Anatomical Region Laterality Modality Abdomen Ultrasound 08/24/2014 11:4 5 AM CDT Narrative 08/24/2014 1:32 PM CDT PROCEDURE US LIMITED ABDOMEN, 24 Aug 2014 DESCRIPTION RUQ evaluation shows hepatic sagittal diameter of 10 cm. No hepatic focal defect or duct dilatation is seen. Common bile duct measures 3.2 mm. Hepatic parenchyma appears hypodense although study quality is limited by patient habitus. Gallbladder shows no stones. There is no pericystic fluid collection. Wall thickness is 1.7 mm. Franklin sign is negative. The visualized portion of head and body of pancreas appears unremarkable. Aorta and vena cava appear unremarkable to the extent visualized. Right renal span is 11.2 cm. No renal masses, cysts or hydronephrosis are seen. IMPRESSION 1. suggestive of hepatic steatosis 2. negative for gallbladder calculi 3. no acute abdominal ultrasound findings appreciated Procedure Note Mike Barber MD - 08/24/2014 PROCEDURE US LIMITED ABDOMEN, 24 Aug 2014 DESCRIPTION RUQ evaluation shows hepatic sagittal diameter of 10 cm. No hepatic focal defect or duct dilatation is seen. Common bile duct measures 3.2 mm. Hepatic parenchyma appears hypodense although study quality is limited by patient habitus. Gallbladder shows no stones. There is no pericystic fluid collection. Wall thickness is 1.7 mm. Franklin sign is negative. The visualized portion of head and body of pancreas appears unremarkable. Aorta and vena cava appear unremarkable to the extent visualized. Right renal span is 11.2 cm. No renal masses, cysts or hydronephrosis are seen. IMPRESSION 1. suggestive of hepatic steatosis 2. negative for gallbladder calculi 3. no acute abdominal ultrasound findings appreciated us Vito Polanco Sr., AFLOAT CRYPTOLOGIC MANAGER US ORDERABLES F inal Result documented in this encounter Visit Diagnoses Diagnosis Abdominal pain- Primary Abdominal pain, unspecified site Diarrhea Abdominal pain Abdominal pain, unspecified site Diarrhea documented in this encounter Care Teams Stock Saw Operator Relationship Specialty Start Date End Date Romel Harrison MD PCP - General Otolaryngology 05/14/15 documented as of this encounter
--- OUTSIDE RECORDS SUMMARY | 2025-02-17 05:12 | XMS_ITS | Encounter Summary ---
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 Phone Romel Harrison MD Primary Care Provider Encounter Details Date Type Department Care Team (Late st Contact Info) Description 10/27/2013 Ancillary Orders [facility] [place] [address] [place] [address] Polycystic ovaries; Other diseases of respiratory system, not elsewhere classified Social History Tobacco Use Types Packs/Day Years Used Date Smoking Tobacco: Never Alcohol Use Standard Drinks/Week Comments [...] on file documented as of this encounter Procedures Procedure Name Priority Date/Time Associated Diagnosis Comments TSH Routine 10/27/2013 9:58 PM CDT Polycystic ovaries [ICD-9-CM] Other diseases of respiratory system, not elsewhere classified [ICD-9-CM] COMPREHENSIVE METABOLIC PANEL Routine 10/27/2013 9:58 PM CDT Polycystic ovaries [ICD-9-CM] Other diseases of respiratory system, not elsewhere classified [ICD-9-CM] documented in this encounter Results * TSH (10/27/2013 9:58 PM CDT) TSH 1.68 0.30 - 4.80 uIU/mL 10/27/2013 10:[address] [facility] [place] Blood Collection / Unknown 10/27/2013 9:58 PM CDT 10/27/2013 9:59 PM CDT us Lupillo Mckeon DO CHEMISTRY ORDERABLES Final Resu lt [facility] [place] CLIA # [id number] [address] [facility] [address] [place] [address] * COMPREHENSIVE METABOLIC PANEL (10/27/2013 9:58 PM CDT) SODIUM 140 136 - 145 mmol/L 10/27/2013 11:[address] [facility] [place] POTASSIUM 3.8 3.5 - 5.1 mmol/L 10/27/2013 11:[address] [facility] [place] CHLORIDE 105 98 - 107 mmol/L 10/27/2013 11:[address] [facility] [place] CO2 26 21 - 32 mmol/L 10/27/2013 11:[address] [facility] [place] CALCIUM 8.6 8.5 - 10.1 mg/dL 10/27/2013 11:[address] [facility] [place] BUN 11 7 - 18 mg/dL 10/27/2013 11:[address] [facility] [place] CREATININE 1.10 0.60 - 1.30 mg/dL 10/27/2013 11:[address] [facility] [place] GLUCOSE 87 74 - 106 mg/dL 10/27/2013 11:[address] [facility] [place] TOTAL PROTEIN 7.4 6.4 - 8.2 g/dL 10/27/2013 11:[address] [facility] [place] ALBUMIN 3.8 3.4 - 5.0 g/dL 10/27/2013 11:[address] [facility] [place] BILIRUBIN TOTAL 0.3 0.2 - 1.0 mg/dL 10/27/2013 11:[address] [facility] [place] ALKALINE PHOSPHATASE 115 50 - 136 U/L 10/27/2013 11:30 PM CDT [facility] AST 21 15 - 37 U/L 10/27/2013 11:30 PM CDT [facility] ALT 49 30 - 65 U/L 10/27/2013 11:30 PM CDT [facility] GFR 60 >=60 mL/min/1.7 3 sq meter 10/27/2013 11:30 PM CDT [facility] Comment: eGFR has not been validated for use in the elderly (> 70 years of age), women, patients with serious co-morbid conditions, or persons with extremes of body size or muscle mass and should also be interpreted with caution in patients with acute kidney failure, dialysis dependent patients, patients reporting exceptional dietary intake (e.g. vegetarian diet, high protein diets, creatine supplementation), and patients with severe liver disease. Based on National Kidney Disease Education Program If patient is , please refer to the GFR result. GFR, >60 >=60 mL/min/1.7 3 sq meter 10/27/2013 11:30 PM CDT [facility] Blood Collection / Unknown 10/27/2013 9:58 PM CDT 10/27/2013 9:59 PM CDT us Lupillo Mckeon DO CHEMISTRY ORDERABLES Final Resu lt [id number] [address] [place] [id number] documented in this encounter Visit Diagnoses Diagnosis Polycystic ovaries Other diseases of respiratory system, not elsewhere classified documented in this encounter Care Teams Milking Worker Relationship Specialty Start Date End Date Romel Harrison MD PCP - General Otolaryngology 05/14/15 documented as of this encounter
--- OUTSIDE RECORDS SUMMARY | 2025-02-17 05:12 | XMS_ITS | Data Portability ---
Author Organization YULIYA Rodríguez Deal [facility], L.LLaura, [facility] Address [address] [address] Care Team Providers Care Casino Cage Manager Name Role Phone MADINA MATA Primary Care Provider Unavailabl e Assessment Encounter Date Assessment Date Assessment LastModified by Organization Details LastModified Time 02/09/2025 02/09/2025 We discussed c section preparation and risks. [email or web address] Not available 02/09/2025 16:10:02 Plan of Treatment Reminders Order Date Submit Date Provider Last Modified By Organization Details Last Modified Time Details Appointments RETURN OB 2024 09:50A M Romel Pan MD Not available Not available Not available Lab prolactin , serum 2024 Convo [facility], [address] [place] [address] [address], [address], [place], [address], 02/10/2025 06:56:30 CT + NG + TV, DNA, urine/swa b 2024 Convo [facility], [address] [place] [address], [address], [place], [address], 01/30/2025 11:23:54 streptoco ccus group B, culture, unspecifi ed specimen 2024 025 Convo [facility], [address] [place] [address] [address], [address], [place], [address], 01/26/2025 11:13:15 Referral None recorded. Procedures None recorded. Surgeries None recorded. Imaging None recorded. Medication Orders monteluka st 10 mg tablet 2024 025 [facility] [place], [address] [place], [address], 01/27/2025 17:48:46 Patient TargetsNo targets recorded. Patient InstructionsNo instructions recorded. Reason for Referral None Reported. Results Created Date Observation Date Name Description Value Unit Range Abnormal Flag Note LastModifiedBy Organization Detail LastModifiedTime 01/24/2001/26/2025 STREP TOCOC CUS, GROUP B CULTU RE streptococcu s, group B culture SEE NOTE STREP TOCOC CUS, GROUP B CULTU RE Micro Numbe r: [id number] Test Statu s: Final Speci men Sourc e: Vagin al/an orect al Speci men Quali ty: Adequ ate Resul t: No group B Strep tococ cus isola veronica Note per CDC guide lines optim al recov marlin is achie lisa by swabb ing both the lower vagin a and rectu m (thro ugh the anal sphin cter) . Not Available [address], [address], 01/26/2025 11:13:15 01/30/2001/30/2025 CHLAM YDIA/ N.HILDA ORRHO EAE AND T. VAGIN MAG RNA, QL TMA chlamydia trachomatis RNA, tma, urogenital NOT DETECT ED not detect ed normal Not Available [facility] [address] [address] [place], [address], 01/30/2025 11:23:54 01/30/2001/30/2025 CHLAM YDIA/ N.HILDA ORRHO EAE AND T. VAGIN MAG RNA, QL TMA neisseria gonorrhoeae RNA, tma, urogenital NOT DETECT ED not detect ed normal Not Available [facility] [address] [address] [place], [address], 01/30/2025 11:23:54 01/30/2001/30/2025 CHLAM YDIA/ N.HILDA ORRHO EAE AND T. VAGIN MAG RNA, QL TMA comment The liban tical perfo rmanc e tara cteri stics of this assay , when used to test SureP ath(T M) speci mens have been deter mined by [facility]. The modif icati ons have not been clear ed or appro lisa by the FDA. This assay has been valid ated pursu ant to the CLIA regul ation s and is used for clini reynaldo purpo ses. For addit ional infor rodrick portillo e refer to https ://ed ucati on.qu estLellan. com/f aq/FA Q154 (This link is being provi ded for infor sarah beth n/ educa michelle l purpo ses only. ) Not Available [facility] [address] [address] [place], [address], 01/30/2025 11:23:54 01/30/2001/30/2025 CHLAM YDIA/ N.HILDA ORRHO EAE AND T. VAGIN MAG RNA, QL TMA trichomonas vaginalis RNA, ql tma NOT DETECT ED not detect ed normal For addit ional infor rodrick portillo e refer to http: //[facility] grant rosa.que stdia gnost ics.c om/ faq/T damir yeung tma (This link is being provi ded for infor merlyvera nal/ educa michelle l purpo ses only. ) Not Available [facility] [address] [address] [place], [address], 01/30/2025 11:23:54 02/10/2002/10/2025 PROLA CTIN prolactin 153.8 NG/mL high Refer ence Range Femal es Non-p regna nt 3.0-3 0.0 Pregn ant 10.0- 209.0 Postm enopa usal 2.0-2 0.0 Not Available [facility] [address] [address] [place], [address], 02/10/2025 06:56:30 01/14/2001/06/2025 US, obste tric, follo w-up No observ ation record ed. [email or web address] [facility] [address] [place], [place], [facility], 01/14/2025 12:03:40 Result Notes None recorded. Problems Name Problem SNOMED Code Status Onset Date Resolution Date Notes Provider Name and Address Organization Details Recorded Time Acute otitis externa of right ear [id number] Amparo MATA, [address], [address] , [facility] 5 12:13:28 Hearing loss 19525143 Ampaor MATA, [address], [address] , [facility] 5 12:13:28 Past history of section 584203068 Amparo MATA, [address], [address] , [facility] 5 12:13:28 Bleeding from female genital tract during 84619254298 [id number] Amparo MATA, [address], [address] , [facility] 5 12:13:28 Hyperprol actinemia 060192191 Amparo MATA, [address], [address] , [facility] 5 12:13:29 Bleeding from nose 930668815 Amparo MATA, [address], [address] , [facility] 5 12:13:29 Recurrent bleeding of nose Amparo MATA, [address], [address] , [facility] 5 12:13:29 Cervicoge mateus headache 285078456 Amparo MATA, [address], [address] , [facility] 5 12:13:29 Right sided abdominal pain 980097426 Amparo MATA, [address], [address] , [facility] 5 12:13:29 Patient encounter status 061012453 Amparo MATA, [address], [address] , [facility] 5 12:13:29 Bronchiti s 92271644 Amparo MATA, [address], [address] , [facility] 5 12:13:29 Strain of neck muscle 682301182 Amparo MATA, [address], [address] , [facility] 5 12:13:29 Chronic sinusitis 28125728 Amparo MATA, [address], [address] , [facility] 5 12:13:29 Hypothyro idism 61971325 Amparo MATA, [address], [address] , [facility] 5 12:13:29 Obesity 214079588 Amparo MATA, [address], [address] , [facility] 5 12:13:29 Refractor y migraine without aura 686603584 Amparo MATA, [address], [address] , [facility] 5 12:13:29 Arthritis of acromiocl avicular joint 300430665 Active MADINA MATA, [address], [address] , [facility] 5 12:13:29 Oligomeno rrhea 17931528 Amparo MATA, [address], [address] , [facility] 5 12:13:29 Chronic otitis externa 74090471 Amparo MATA, [address], [address] , [facility] 5 12:13:29 Subchorio mateus hematoma 905790851 Amparo MATA, [address], [address] , [facility] 5 12:13:29 Allergic rhinitis 93280548 Amparo MATA, [address], [address] , [facility] 5 12:13:29 Congenita l deviation of nasal septum 98603005 Amparo MATA, [address], [address] , [facility] 5 12:13:29 Female infertili ty 7670945 Amparo MATA, [address], [address] , [facility], L.LBertramCBertram 5 12:13:29 Posterior rhinorrhe a 60705000 Active MADINA MATA, [address], [address] , [facility], L.LBertramCBertram 5 12:13:29 Pain in face 33109036 Active MADINA MATA, [address], , [facility], L.LBertramCBertram 5 12:13:29 History of cholecyst ectomy 935722208 Active 2021 MADINA MATA, [address], , [facility] L.LBertramCBertram 5 12:13:29 Family history of malignant neoplasm of digestive organ 876762075 Active 2021 FAMILY HISTORY OF COLON CANCER IN MOTHER; Recorded 2 1:40PM by Homa Gaines CMT, Office Visit; Promoted; acuity set as *; Not Available [facility] 3 03:07:44 Polycysti c ovary syndrome 105328645 Active 2022 PCOS (POLYCYST IC OVARIAN SYNDROME) ; Recorded 3 1:39PM by Homa Gaines CMT, Historica l Summary; Promoted; acuity set as *; Not Available [facility] 3 03:07:43 Chiari malformat ion type I 057401942 Active 2024 MADINA MATA, [address], , [facility] LBertramLBertramCBertram 5 12:13:29 Uterine leiomyoma 27961125 Active 2024 MADINA MATA, [address], , [facility] 12:13:29 24102517 Active 2024 [facility] null, [facility] 14:09:31 Maternal obesity complicat ing , childbirt h and the puerperiu m, antepartu m 56552855527 7 Active 2024 Romel Pan MD [address] [place] [address], [address] , [facility]ram[facility]. 14:58:39 Uterine size for terrell discrepan cy 073555604 Active 2024 Romel Pan MD [address] [place] [address], [address] , [facility]ram[facility]. 15:01:50 Seasonal allergy 971267793 Active 2024 Romel Pan MD [address] [place] [address], [address] , [facility] 12:46:17 Notes:Some problems listed i n Document: #[id number] could not be added to this patient's chart. Please review this document and add these problems to the patient's chart manually as needed. Problem Notes None recorded. Procedures Surgical History Date Name Laterality Status Provider Name and Address Organization Details Recorded Time 11/11/19 25 Toenail avulsion completed HENNA BELLO PA-C [address] [place] [address], [address], [facility], See 11/10/2024 14:04:46 08/15/19 25 Date of Last Pap Smear [facility], See 01/06/2025 18:30:05 08/15/19 25 liquid based cervical cytology screening completed YESI [facility], LBertramLBertramCBertram 01/06/2025 18:30:38 09/24/19 24 US scan of abdomen and pelvis completed HOMA GAINES [facility], See 09/25/2023 18:31:26 09/01/19 23 MRI of right shoulder completed HOMA GAINES [facility], See 09/07/2022 12:50:22 section completed HOMA LIANA [facility], CedCBertram 02/22/2023 10:37:44 Cholecystectomy completed HOMA GAINES [facility], OjLLaura 02/22/2023 10:37:49 Tonsillectomy completed HOMA GAINES [facility], CedCBertram 02/22/2023 10:38:10 Imaging Results None recorded. Procedure Notes None recorded. Medical Equipment None Reported. Allergies Allergen ID Allergen Name Allergen Category Reaction Reaction Severity Criticality Documentation Date Start Date Code Code System Note Provider Name and Address Organization Details Recorded Time 57127 codeine phosphate medicatio n itching Not available Not available 11/11/2022 2672 RxNorm React ion: Itchi ng; Comme nt: Recor ded 03/23 1:40P M by Monica olvera, SHON, Offic e Visit ; Promo veronica; Lesly velazquez ce: *; Reaso n: Drug aller gy; ; HOMA LIANA harris [facility], LBertramLBertramCBertram 3 10:33:25 43249 codeine medicatio n Not available Not available Not available 11/11/20222024 2670 RxNorm Other react ions and sever ities : 'Skin pruri tus'. YASMINE SIERRA [address] [place], [address], [facility], OjLLaura 12:13:16 16942 oxycodone medicatio n Not available Not available Not available 11/12/20242024 7804 RxNorm YASMINE SIERRA [address] [place], [address], [facility] 12:13:16 Medications Name Sig Start Date Stop Date Status Note LastModified by Organization Details LastModified Time amoxicill in 500 mg capsule take 1 capsule BY MOUTH EVERY 8 HOURS for 10 days 11/07 completed Not Available Not Available Not Available albuterol sulfate 2.5 mg/3 mL (0.083 %) solution for nebulizat ion use 1 vial in nebulize r THREE TIMES DAILY NEEDED 11/07 completed Not Available Not Available Not Available azithromy jaosn 250 mg tablet TAKE 2 TABLETS BY MOUTH TODAY, THEN TAKE 1 TABLET DAILY ON DAYS 2-5 09/17 completed Not Available Not Available Not Available ibuprofen 800 mg tablet TAKE 1 TABLET BY MOUTH THREE TIMES DAILY NEEDED 08/01 completed Not Available Not Available Not Available fluconazo le 150 mg tablet TAKE 2 TABLETS BY MOUTH ONCE a week FOR SIX MONTHS 11/10 completed Not Available Not Available Not Available hydrocodo ne 5 mg-acetam inophen 325 mg tablet TAKE ONE TABLET BY MOUTH EVERY SIX HOURS needed FOR pain 08/01 completed Not Available Not Available Not Available meloxicam 15 mg tablet TAKE 1 TABLET BY MOUTH EVERY DAY NEEDED FOR PAIN 11/10 completed Not Available Not Available Not Available ondansetr on HCl 4 mg tablet TAKE ONE TABLET BY MOUTH EVERY EIGHT HOURS FOR FIVE DAYS 08/01 completed Not Available Not Available Not Available penicilli n V potassium 500 mg tablet TAKE 1 TABLET BY MOUTH FOUR TIMES DAILY UNTIL GONE 08/01 completed Not Available Not Available Not Available levothyro xine 75 mcg tablet TAKE 1 TABLET BY MOUTH EVERY DAY ON EMPTY STOMACH active Not Available Not Available No t Available Macrobid 100 mg capsule Take 1 capsule twice a day by oral route for 5 days, for infectio n. 11/30 completed Not Available Not Available Not Available famotidin e 20 mg tablet 20 mg by oral route. 2024 active Not Available Not Available Not Avai lable levothyro xine 50 mcg tablet TAKE 1 TABLET BY MOUTH EVERY DAY ON empty stomach 11/09 completed Not Available Not Available Not Available cephalexi n 500 mg capsule take 1 capsule BY MOUTH THREE TIMES DAILY FOR SEVEN DAYS 11/12 completed Not Available Not Available Not Available cabergoli ne 0.5 mg tablet take 1/2 tablet BY MOUTH TWICE A WEEK 11/10 completed Not Available Not Available Not Available progester one micronize d 200 mg capsule TAKE 1 CAPSULE BY MOUTH EVERY DAY 08/01 completed Not Available Not Available Not Available docusate sodium 100 mg capsule TAKE ONE CAPSULE BY MOUTH TWICE DAILY 08/01 completed Not Available Not Available Not Available monteluka st 10 mg tablet TAKE 1 TABLET BY MOUTH EVERY DAY NEEDED active Not Available Not Available No t Available lisinopri l 5 mg tablet TAKE ONE TABLET BY MOUTH EVERY DAY 08/01 completed Not Available Not Available Not Available mupirocin 2 % topical ointment apply a small amount TO THE affected area THREE TIMES DAILY 11/12 completed Not Available Not Available Not Available ketoconaz ole 2 % topical cream apply TO entire FEET TWICE DAILY FOR FOUR weeks includin g between TOES 09/17 completed Not Available Not Available Not Available ondansetr on 4 mg disintegr ating tablet DISSOLVE ONE TABLET BY MOUTH EVERY DAY NEEDED 02/22 completed Not Available Not Available Not Available amoxicill in 875 mg-potass ium clavulana te 125 mg tablet TAKE 1 TABLET BY MOUTH TWICE DAILY FOR 10 DAYS 11/07 completed Not Available Not Available Not Available duloxetin e 30 mg capsule,d elayed release take 1 capsule BY MOUTH EVERY DAY 11/10 completed Not Available Not Available Not Available fluoxetin e every other day 02/22 completed 31689; Recorded 08/18/19 21 7:47AM by Liana Rocha LPN (Authori tonya through YASMINE Mendoza), Office Visit; Refill Quantity : 90; Capsule; Not Available Not Available Not Available progester one daily 02/22 completed 44272; Recorded 02/17/20 22 2:01PM by Homa Gaines CMT (Authori tonya through YASMINE Mendoza), Refill Request; Refill Quantity : 30; Capsule; Not Available Not Available Not Available 11/12 completed Not Available Not Available Not Available ondansetr on daily as needed 02/22 completed Recorded 03/23/20 22 1:40PM by Homa Gaines CMT, Office Visit; Refill Quantity : 10; Tablet; Not Available Not Available Not Available multivita min 1 daily 11/07 completed Not Available Not Available Not Available B-12 Plus 11/12 completed Not Available Not Available Not Available butalbita l-acetami nophen-ca ffeine 50 mg-300 mg-40 mg capsule 1 capsule by oral route. 2024 active Not Available Not Available Not Avai lable pyridoxin e (vitamin B6) 50 mg capsule Take 50 mg by oral route. 01/06 completed Not Available Not Available Not Available 118-iron- folic acid 1 tablet daily active Not Available Not Available No t Available Mounjaro 5 mg/0.5 mL subcutane ous pen injector Inject 5 mg every week by subcutan eous route for 30 days. 02/22 completed Not Available Not Available Not Available Mounjaro 10 mg/0.5 mL subcutane ous pen injector inject 10mg SUBCUTAN EOUSLY every week 10/13 completed Not Available Not Available Not Available Mounjaro 2.5 mg/0.5 mL subcutane ous pen injector 08/01 completed Not Available Not Available Not Available Vitals Date Recorded Body height Body mass index (BMI) Body weight Oxygen saturation Oxygen saturation in Arterial blood by Pulse oximetry Heart rate Respiratory rate Body temperature Systolic And Diastolic Provider Name and Address Organization Details Last Updated DateTime 5 166.37 cm 49.3 kg/m2 112747. 3 g 98 % 98 % 100 /min 20 /min 98.7 [degF] 122/78 mm[Hg] YESI MORGAN [facility] LB[facility]. 5 15:28:23 Date Recorded Body height Body mass index (BMI) Body weight Oxygen saturation Oxygen saturation in Arterial blood by Pulse oximetry Heart rate Respiratory rate Body temperature Systolic And Diastolic Provider Name and Address Organization Details Last Updated DateTime 166.37 cm 49.8 kg/m2 353358. 78 g 99 % 99 % 96 /min 18 /min 98.5 [degF] 130/74 mm[Hg] [facility] L.L[facility]CBertram 12:28:03 Date Recorded Body height Body mass index (BMI) Body weight Oxygen saturation Oxygen saturation in Arterial blood by Pulse oximetry Heart rate Respiratory rate Body temperature Systolic And Diastolic Provider Name and Address Organization Details Last Updated DateTime 166.37 cm 50.7 kg/m2 387055. 84 g 99 % 99 % 92 /min 18 /min 98 [degF] 136/76 mm[Hg] [facility] L[facility] 10:51:22 Date Recorded Body height Body mass index (BMI) Body weight Oxygen saturation Oxygen saturation in Arterial blood by Pulse oximetry Heart rate Respiratory rate Body temperature Systolic And Diastolic Provider Name and Address Organization Details Last Updated DateTime 166.37 cm 50.2 kg/m2 116088. 97 g 98 % 98 % 112 /min 18 /min 98.5 [degF] 124/76 mm[Hg] [facility] 14:11:55 Date Recorded Body height Body mass index (BMI) Body weight Oxygen saturation Oxygen saturation in Arterial blood by Pulse oximetry Heart rate Respiratory rate Body temperature Systolic And Diastolic Provider Name and Address Organization Details Last Updated DateTime 5 166.37 cm 50.5 kg/m2 837070. 85 g 98 % 98 % 96 /min 18 /min 98.5 [degF] 120/74 mm[Hg] [facility] L[facility]CB[facility]ram 15:24:43 Social History Question Answer Notes LastModified by Organizat ion Details LastModified Time Tobacco Smoking Status [facility] Smoker [facility] 02/22/2023 10:36:25 Which Illicit Or Recreational Drugs Have You Used? Occasional Marijuana Information not available 02/22/2023 What Was The Date Of Your Most Recent Tobacco Screening? 11/07/2024 [email or web address] Information not available 11/07/2024 What Is Your Relationship Status? Information not available 02/22/2023 Sex: Unknown Functional Status Question Answer Note LastModified by Organizat ion Details LastModified Time Do you use any illicit or recreational drugs? Yes [email or web address] Information not available 02/22/2023 What is your level of alcohol consumption? Occasional [email or web address] Information not available 08/20/2023 Are you currently employed? Yes [email or web address] Information not available 02/22/2023 Are you able to care for yourself independently? Yes [email or web address] Information not available 02/22/2023 Mental Status None recorded. Family History Relationship Description Onset Age of this Age Resolved Age Notes LastModified by Organization Details LastModified Time Mother Malignant neoplasm of colon deceas ed age 58 [email or web address] Not available 02/22/2023 10:34:40 Father Type 2 diabetes mellitus [email or web address] Not available 02/22 10:34:58 Medical History Condition Response Coronary Artery Disease N Other N Gout N Kidney Stones N Blood Diseases N Hyperthyroidism N Breast Cancer N Blood Transfusion N Depression N Hypothyroidism Y Lung Disease N COPD N Developmental or Behavioral Disorders N Defects or Inherited Disease N Breast Problem N Difficulty Swallowing N Anesthesia Complications N Anxiety Disorder Y Meniere's disease N Muscle, Joint, or Bone Problems N Vision or Eye Problems Y Arthritis Y Infertility N Polyps N Cancer N Stroke N Varicosities N Endometriosis N Bladder or Kidney Problems N High Cholesterol N Liver Disease N Fibromyalgia N Headaches N Kidney Disease N Allergies/Hayfever Y Heart Problems N Ear or Hearing Problems N Hospitalizations N Thyroid Problems Y GI Problems N ADD/ADHD N Skin Problems N Eating Disorder N Anemia N Constipation N Mental Illness N Ovarian Cancer N Diabetes N Bedwetting N Seizures/Epilepsy N Tuberculosis N Eczema N Diverticulitis N Abuse/Domestic Violence N Asthma Y Reflux/GERD N Hepatitis N Heart Disease N Pulmonary Embolism N Pre-Eclampsia N Hypertension Y Chronic Ear Infections N Osteoporosis N Chicken Pox N Autism Spectrum Disorder (ASD) N Thrombophilias N Gynecological History Statement/Question Response Abnormal Pap N Date of Last Pap Smear 08/14/2024 Obstetrics History GPAL:G 3 P 1 0 1 1 Type Value Full Term 1 Spontaneous 1 Living 1 Total 3 Immunizations Vaccine Type Date Status Note Provider Nam e and Address Organization Details Recorded Time Influenza, split virus, trivalent, preservative 6 completed MADINA MATA, [facility] [address] [place], [address], [facility] 02/22/2023 11:12:44 Hib, unspecified formulation 0 completed MADINA MATA, [facility] [address] [place], [address], [facility] 02/22/2023 11:12:44 MMR 0 completed MADINA MATA, [facility] [address] [place], [address], [facility] 02/22/2023 11:12:44 MMR 0 completed MADINA MATA, [facility] [address] [place], [address], [facility] 02/22/2023 11:12:44 Tdap 4 completed MADINA MATA, [facility] [address] [place], [address], [facility] 02/22/2023 11:12:44 Hep B, unspecified formulation 8 completed MADINA MATA, [facility] [address] [place], [address], [facility] 02/22/2023 11:12:44 polio, unspecified formulation 8 chandan MATA, [facility] [address] [place], [address], [facility] 02/22/2023 11:12:44 polio, unspecified formulation 2 completed MADINA VARNERTES, [facility] [address] [place], [address], [facility] 02/22/2023 11:12:44 polio, unspecified formulation 0 completed MADINA VARNERTES, [facility] [address] [place], [address], [facility] 02/22/2023 11:12:44 polio, unspecified formulation 3 completed AMDINA MATA, [facility] [address] [place], [address], [facility] 02/22/2023 11:12:44 Hep B, adult 6 completed TREBA CHAPOWAEVITAER null, [facility] 12/24/2024 14:12:25 Hep B, adult 4 completed TREBA NEUSCHWANDER null, [facility] 12/24/2024 14:12:25 DTaP 8 completed MADINA MATA, [facility] [address] [place], [address], [facility] 02/22/2023 11:12:44 DTaP 2 completed MADINA MATA, [facility] [address] [place], [address], [facility] 02/22/2023 11:12:44 DTaP 0 completed MADINA VARNERTES, [facility] [address] [place], [address], [facility] 02/22/2023 11:12:44 DTaP 3 completed MADINAYASMINE MOSS [address] [place], [address], [facility], See 02/22/2023 11:12:44 Tdap 4 completed Not Available [facility] 02/09/2025 14:46:09 Hep A, adult 4 completed ANISH harris [facility], See 12/24/2024 14:12:25 Hep A, adult 4 completed Not Available [facility] 02/09/2025 14:46:09 RSV, bivalent, protein subunit RSVpreF, diluent reconstituted, 0.5 mL, PF 5 completed Not Available [facility] 02/09/2025 14:46:09 Tdap 5 completed Not Available [facility] 02/09/2025 14:46:09 Past Encounters Encounter ID Performer Location Encounter Start Date Encounter Closed Date Diagnosis/Indication Diagnosis SNOMED-CT Code Diagnosis ICD10 Code Diagnosis IMO Codes Diagnosis Note [id number] YASMINE SIERRA [facility] ([facility]) [address] [place] [address] 08/01/2022 12:14:30 08/07/2022 12:04:08 Arthritis 4247528 M15.0 Uses marijuana gummy to help with pain. Pain of ri ght shoulder joint [id number] 0960104 M25.511 Ibuprofen, not helpful for shoulder pain. Pain has been going on for 9 months. Conservati ve treatments like PT and massage have failed. Morbid obesity 708557599 E66.01 Weight is under 300 now on Mounjaro. Highest weight has been 335ish. [id number] YASMINE SIERRA [facility] ([facility]) [address] [place] [address] 02/22/2023 10:00:32 02/22/2023 11:25:51 Adult health examination 016155288 Z00.00 Overall doing well. Paperwork filled out for foster care. She is planning on getting her nephew soon. Hopefully within a month. Multiple skin tags 53702 7009 L91.8 Polycystic ovary syndrome 205999288 E28.2 [id number] DANNY ELIZABETH [facility] ([facility]) [address] [place] [address] 08/20/2023 09:20:20 08/20/2023 12:03:56 Acute bacterial bronchitis 127350344 J20.9 Refill of albuterol neb soln provided today.Disc ussed use of antibiotic . Take with food.May use Jonathan's nasal inserts and also apply on chest. Push oral fluids. [id number] MADINA MATA [facility] ([facility]) [address] [place] [address] 09/18/2023 10:02:57 09/18/2023 10:49:14 Morbid obesity 324361118 E66.01 Daughter recently diagnosed with alpha-gal. Patient having diarrhea as well. Diarrhea 27184942 R19.7 Pain in pelvis 34685127 R10.2 Bronchitis 30532246 J40 [id number] MADINA MATA [facility] ([facility]) [address] [place], [place] [address] 09/24/2023 14:41:44 09/24/2023 16:13:28 [id number] DANNY ELIZABETH [facility] ([facility]) [address] [place] [address] 11/07/2024 17:16:23 11/07/2024 18:55:15 Ingrowing great toenail 657809126 L60.0 981736 Discussed to soak foot in warm water with epsom salt 3 times a day for 10-15 minutes. Make sure to wear open toed or wide shoes to so the toes are not being squeezed.A pply antibiotic ointment to the toe 2 times a day.take antibiotic as directed.S cheduled for f/u to discuss possible removal. [id number] HENNA BELLO PA-C [facility] ([facility]) [address] [place] [address] 11/10/2024 11:06:07 11/10/2024 14:13:39 Ingrowing toenail 892985864 L60.0 [id number] YASMINE SIERRA [facility] ([facility]) [address] [place] [address] 11/12/2024 11:13:52 11/12/2024 13:58:18 Increased frequency of urination 087304881 R35.0 83000 General ex amination of patient 739878540 Z00.00 [id number] Morbid obesity 215213789 E66.01 Second tri mester 57793961 Z34.92 124427 She will be 26 weeks on Sunday. [id number] Romel Pan MD [facility] ([facility]) [address] [place] [address] 12/24/2024 13:57:44 12/24/2024 15:25:56 Multigravida 770630894 Z34.83 68079496 Gestation period, 31 weeks 01535970 Z3A.31 7421017 History of Disorder 3128 24688 Z87.59 62966124 Maternal o besity complicating , childbirth and the puerperium, antepartum 1530872191 07 O99.213 7266045850 Uterine si ze for dates discrepancy 273784358 O26.356 5629569 [id number] Romel Pan MD [facility] ([facility]) [address] [place] [address] 01/06/2025 12:03:39 01/07/2025 12:11:14 [id number] Romel Pan MD [facility] ([facility]) [address] [place] [address] 01/06/2025 14:05:06 01/19/2025 08:35:15 Maternal obesity complicating , childbirth and the puerperium, antepartum 0502293903 07 O99.213 6553509404 25868574 Z34.9 0 Gestation period, 33 weeks 01460753 Z3A.33 7666895 [id number] Romel Pan MD [facility] ([facility]) [address] [place] [address] 01/23/2025 11:22:39 01/23/2025 13:31:15 [id number] Z34.90 Gestation period, 35 weeks 67520968 Z3A.35 1372451 Seasonal allergy 8883905 04 J30.2 77554 [id number] Romel Pan MD [facility] ([facility]) [address] [place] [address] 01/29/2025 09:49:03 01/29/2025 11:19:50 88121915 Z34.90 Gestation period, 36 weeks 02130075 Z3A.36 8854745 [id number] Romel Pan MD [facility] ([facility]) [address] [place] [address] 02/06/2025 13:56:13 02/06/2025 14:34:30 [id number] Z34.90 Gestation period, 37 weeks 63243277 Z3A.37 3261954 [id number] Romel Pan MD [facility] ([facility]) [address] [place] [address] 02/09/2025 14:45:26 02/09/2025 16:20:12 05801635 Z34.90 Gestation period, 38 weeks 81292069 Z3A.38 5234380 Hyperprolactinemia 2004 E22.1 Health Concerns Section Related Observation LastModified by Organization Detai ls LastModified Time None Recorded Concern Status LastModified by Organization Details LastModified Time None Recorded Advance Directives Directive None Recorded Payers Insurance Date Sequence Insurance Name Policy Number Policy Peterson Covered Member ID Peterson Member ID Guarantor Name 01/20/2025 [place] [facility] (INSTITUTIONAL) Shila Tarango [id number] Shila Tarango 02/08/2025 [facility] (MEDICAID HMO) Shila Tarango [id number] Shila Tarango 11/13/2024 2 [place] Shila Tarango [id number] Shila Tarango 11/07/2024 [place] [facility] ([place]ITUTIONAL) Shila Tarango [id number] Shila Tarango 11/07/2024 1 [place] Shila Tarango [id number] Shila Tarango 02/09/2025 1 [facility] (MEDICAID HMO) Shila Sargent Tarango [id number] Shila Tarango 11/07/2024 1 [place] Shila Sargent Tarango [id number] Shila Tarango 09/18/2023 1 *SELF PAY* Marguerite Tarango Notes Date Note Type Note Provider Name and Address Organization Details Recorded Time 025 text/h tml jr ob routineReported by PatientHPIFor associated symptoms, patient reportsfrequency,headache, andbreathlessness (with exertion)but reportsno abdominal pain,no cramping,no contractions,normal movement,no bleeding,no vaginal discharge,no vaginal/vulvar itching or irritation,no dysuria,no urgency,no hematuria,no fever,no nausea,no emesis,no constipation,no diarrhea/loose stool,no edema,no visual changes, andno dizziness.heartburn intermittent,Pt denies any alcohol, tobacco and has not had any marijuana since finding out she was ROS as noted in the HPI [facility], Romel Pan MD [address] [place] [address], [phone] , [facility] 01/16/2025 10:35:55 025 text/h tml jr ob routineReported by PatientHPIFor associated symptoms, patient reportsnausea,headache, andbreathlessness (with exertion)but reportsno abdominal pain,no cramping,no contractions,normal movement,no bleeding,no vaginal discharge,no vaginal/vulvar itching or irritation,no dysuria,no frequency,no urgency,no hematuria,no fever,no emesis,no constipation,no diarrhea/loose stool,no edema,no visual changes, andno dizziness.heartburn intermittent,Pt denies any alcohol, tobacco and has not had any marijuana since finding out she was ROS as noted in the HPI Transfer from [facility] Espinoza MD [address] [place] [address], [phone] , [facility] 01/23/2025 12:48:43 025 text/h tml jr ob routineReported by PatientHPIFor associated symptoms, patient reportsnauseaandbreathlessness (with exertion)but reportsno abdominal pain,no cramping,no contractions,normal movement,no bleeding,no vaginal discharge,no vaginal/vulvar itching or irritation,no dysuria,no frequency,no urgency,no hematuria,no fever,no emesis,no constipation,no diarrhea/loose stool,no edema,no visual changes,no headache, andno dizziness.heartburn intermittent,Pt denies any alcohol, tobacco and has not had any marijuana since finding out she was ROS as noted in the HPI [facility] [address] [place] [address], [phone] , [facility] 01/29/2025 11:18:05 025 text/h tml jr ob routineReported by PatientHPIFor associated symptoms, patient reportsconstipationandbreathlessness (with exertion)but reportsno abdominal pain,no cramping,no contractions,normal movement,no bleeding,no vaginal discharge,no vaginal/vulvar itching or irritation,no dysuria,no frequency,no urgency,no hematuria,no fever,no nausea,no emesis,no diarrhea/loose stool,no edema,no visual changes,no headache, andno dizziness.heartburn intermittent, pelvic/vaginal pressurePt denies any alcohol, tobacco and has not had any marijuana since finding out she was ROS as noted in the HPI Transfer from [place] [facility] Espinoza MD [address] [place] [address], [phone] , [facility] 02/06/2025 14:31:08 025 text/h tml jr ob routineReported by PatientHPIFor associated symptoms, patient reportsconstipationandheadachebut reportsno abdominal pain,no cramping,no contractions,normal movement,no bleeding,no vaginal discharge,no vaginal/vulvar itching or irritation,no dysuria,no frequency,no urgency,no hematuria,no fever,no nausea,no emesis,no diarrhea/loose stool,no edema,no visual changes,no dizziness, andno breathlessness.heartburn intermittent, pelvic/vaginal pressurePt denies any alcohol, tobacco and has not had any marijuana since finding out she was ROS as noted in the HPI [facility], [facility] Pt states she needs her prolactin rechecked. Romel Pan MD [address] [place] [address], [phone] , [facility] 02/09/2025 16:10:16 OBGyn Episode Ob Episode Information Episode Created Date Number of Fetuses Patient Bloodtype Patient rh Status Prepregnancy Weight lbs Domestic Partner Domestic Partner Phone Father Name Clam Grower Status 12/25/19 25 1 CLOSED Fetus Data First Name Last Name Admitted to NICU Weight (g) Sex Living Outcome Pediatric Complications Fetus ID Race Codes Race Delivery Type 2608.15 4 F Full Term 9683 Daniela Calculation Initial Daniela Date Initial Exam Date Initial Exam Provider Initial Ultrasound Date Last Menstrual Period Date Ultra Sound Weeks Gestation 0 Eighteen To Twenty Week Daniela Update Ultra Sound Date Fundal Height At Umbil Quickening Date Ultra Sound Latest Weeks Gestation Final Daniela Confirmed By Final Daniela Confirmed Date Final Daniela Date Ultra Sound Latest Days Gestation 0 0 Menstrual History Last Menstrual Date Menses Monthly On Bcp Conception Prior Menses Frequency Hcg Plus Date Menarche Onset Age Delivery Information Delivery Date Delivery Type Labor Anesthesia Weeks Gestation Incision Type Labor Labor Length Hrs Delivered By Post Complications Tubal Sterilization Discharge Date Comments 3 37 low flui d failure to progress she ended up having a Discharge Information Feeding Method Contraceptive Method Maternal HG B and HCT Levels Ob Episode Information Episode Created Date Number of Fetuses Patient Bloodtype Patient rh Status Prepregnancy Weight lbs Domestic Partner Domestic Partner Phone Father Name Clam Grower Status 12/25/19 25 1 A Positive Benigno OPEN Fetus Data First Name Last Name Admitted to NICU Weight (g) Sex Living Outcome Pediatric Complications Fetus ID Race Codes Race Delivery Type [id number] Daniela Calculation Initial Daniela Date Initial Exam Date Initial Exam Provider Initial Ultrasound Date Last Menstrual Period Date Ultra Sound Weeks Gestation 12/24/2024 0 Eighteen To Twenty Week Daniela Update Ultra Sound Date Fundal Height At Umbil Quickening Date Ultra Sound Latest Weeks Gestation Final Daniela Confirmed By Final Daniela Confirmed Date Final Daniela Date Ultra Sound Latest Days Gestation 0 02/23/20 25 0 Pre-meliton Flowsheet Flowsheet Date 12/24/2024 Hartman Score Blood Edema Fundus Height Fundus Units Glucose Ketones Leukocytes Nitrite Labor Signs Protein Cervic Dilation Cervic Effacement Cervic Station 36 cm none none Negative trace Type Weight in lbs Pre/Post Dialysis Refused Weight 295.72523277748 BP Diastolic BP Location Tested BP Systolic BP Type 72 124 sitting Fetus Heart Rate Present A 134 Present Fetus Movement A Yes Comments OBI- feeling well Flowsheet Date 01/06/2025 Hartman Score Blood Edema Fundus Height Fundus Units Glucose Ketones Leukocytes Nitrite Labor Signs Protein Cervic Dilation Cervic Effacement Cervic Station Type Weight in lbs Pre/Post Dialysis Refused BP Diastolic BP Location Tested BP Systolic BP Type Fetus Heart Rate Present Fetus Movement Comments Flowsheet Date 01/06/2025 Hartman Score Blood Edema Fundus Height Fundus Units Glucose Ketones Leukocytes Nitrite Labor Signs Protein Cervic Dilation Cervic Effacement Cervic Station 37 cm none trace Type Weight in lbs Pre/Post Dialysis Refused Weight 301.167679321025 BP Diastolic BP Location Tested BP Systolic BP Type 78 L arm 122 Fetus Heart Rate Present A 144 Present Fetus Movement A Yes Comments intermit heartburn, DUNCAN, Flowsheet Date 01/09/2025 Hartman Score Blood Edema Fundus Height Fundus Units Glucose Ketones Leukocytes Nitrite Labor Signs Protein Cervic Dilation Cervic Effacement Cervic Station Type Weight in lbs Pre/Post Dialysis Refused BP Diastolic BP Location Tested BP Systolic BP Type Fetus Heart Rate Present Fetus Movement Comments u/s on 01/06/25, size vs date s- vertex, DANIELA 02/20/25, EGA 33.4 Flowsheet Date 01/15/2025 Hartman Score Blood Edema Fundus Height Fundus Units Glucose Ketones Leukocytes Nitrite Labor Signs Protein Cervic Dilation Cervic Effacement Cervic Station Type Weight in lbs Pre/Post Dialysis Refused BP Diastolic BP Location Tested BP Systolic BP Type Fetus Heart Rate Present Fetus Movement Comments Home state RA completed Flowsheet Date 01/23/2025 Hartman Score Blood Edema Fundus Height Fundus Units Glucose Ketones Leukocytes Nitrite Labor Signs Protein Cervic Dilation Cervic Effacement Cervic Station 39 cm none none Negative trace 0cm 0% -4 Type Weight in lbs Pre/Post Dialysis Refused Weight 304.216268941847 BP Diastolic BP Location Tested BP Systolic BP Type 74 130 sitting Fetus Heart Rate Present A 146 Present Fetus Movement A Yes Comments nausea, headache, hip pain, sob, heartburn, group B today Flowsheet Date 01/26/2025 Hartman Score Blood Edema Fundus Height Fundus Units Glucose Ketones Leukocytes Nitrite Labor Signs Protein Cervic Dilation Cervic Effacement Cervic Station Type Weight in lbs Pre/Post Dialysis Refused BP Diastolic BP Location Tested BP Systolic BP Type Fetus Heart Rate Present Fetus Movement Comments group B strep NegativeOB rec ords sent Flowsheet Date 01/29/2025 Hartman Score Blood Edema Fundus Height Fundus Units Glucose Ketones Leukocytes Nitrite Labor Signs Protein Cervic Dilation Cervic Effacement Cervic Station 39 cm none none Negative neg Type Weight in lbs Pre/Post Dialysis Refused Weight 309.256715084207 BP Diastolic BP Location Tested BP Systolic BP Type 76 136 sitting Fetus Heart Rate Present A 104 Present Fetus Movement A Yes Comments urine GC/CHL today nausea,he artburn, sob Flowsheet Date 02/06/2025 Hartman Score Blood Edema Fundus Height Fundus Units Glucose Ketones Leukocytes Nitrite Labor Signs Protein Cervic Dilation Cervic Effacement Cervic Station 40 cm none trace Negative neg Type Weight in lbs Pre/Post Dialysis Refused Weight 306.481513539227 BP Diastolic BP Location Tested BP Systolic BP Type 76 124 sitting Fetus Heart Rate Present A 144 Present Fetus Movement A Yes Comments heartburn, occ vaginal / pel felton pressure, shortness of breath Flowsheet Date 02/09/2025 Hartman Score Blood Edema Fundus Height Fundus Units Glucose Ketones Leukocytes Nitrite Labor Signs Protein Cervic Dilation Cervic Effacement Cervic Station none none Negative trace Type Weight in lbs Pre/Post Dialysis Refused Weight 308.523774423091 BP Diastolic BP Location Tested BP Systolic BP Type 74 120 sitting Fetus Heart Rate Present A 136 Present Fetus Movement A Yes Comments pelvic/vaginal pressure, hea dache, heartburn, comstipation Menstrual History Last Menstrual Date Menses Monthly On Bcp Conception Prior Menses Frequency Hcg Plus Date Menarche Onset Age Genetic Screening And Infection History Question Response Note Patient's Age Will Be 35 Years Or Older At Estim ated Date of Delivery true Thalassemia (Hungarian, Citizen Of [place], Mediterranean, Or Background): MCV < 80 false Neural Tube Defect (Meningomyelocele, Spina Bifi da, Or Anencephaly) false Congenital Heart Defect false Down Syndrome false Kasi-Sachs (eg, Worship, Cajun, Brazilian-[place]) f alse Annmarie Disease false Sickle Cell Disease Or Trait () false Hemophilia Or Other Blood Disorders false Muscular Dystrophy false Cystic Fibrosis false Sitka's Chorea false Intellectual Disability/Autism false If Yes, Was Person Tested For Fragile X? false Other Inherited Genetic Or Chromosomal Disorder false Maternal Metabolic Disorder (eg, Type 1 Diabetes , PKU) false Patient Or Baby's Father Had A Child With Defects Not Listed Above false Recurrent Loss, Or A Stillbirth false Medications (including Suppl ements, Vitamins, Herbs, OTC Drugs), Illicit/Recreational Drugs, Alcohol false If Yes, Agent(s) And Strength/Dosage false Any Other Genetic History false Live With Someone With TB Or Exposed To TB false Patient Or Partner Has History Of Genital Herpes false Rash Or Viral Illness Since Last Menstrual Perio d false History Of STD, Gonorrhea, Chlamydia, HPV, Syphi lis false Other Infection History false History of HIV false History of Hepatitis false Prior GBS-infected child false Hemoglobinopathy Or Carrier false Other Structural Defect false Recent Travel History Outside of Country false Mental Retardation/Autism false Delivery Information Delivery Date Delivery Type Labor Anesthesia Weeks Gestation Incision Type Labor Labor Length Hrs Delivered By Post Complications Tubal Sterilization Discharge Date Comments Discharge Information Feeding Method Contraceptive Method Maternal HG B and HCT Levels
--- OUTSIDE RECORDS SUMMARY | 2025-02-17 05:12 | XMS_ITS | Encounter Summary ---
Author Organization [facility] Address [address] [place] [address] Care Team Providers Care Stream Control Officer Name Role Phone Romel Harrison MD Primary Care Provider [phone] Encounter Details Date Type Department Care Team (Latest Contact Info) Description 08/20/2014 Ancillary Orders [facility] Centralized Scheduling [address] [place] [address] [facility] , YASMINE Gavin [address] [place] [address] Back pain (Primary Dx) Social History Tobacco Use Types Packs/Day Years [...] documented as of this encounter Results * XR LUMBAR SPINE 2 OR 3 VW (08/24/2014 12:22 PM CDT) Anatomical Region Laterality Modality Spine Computed Radiogr aphy 08/24/2014 12:1 4 PM CDT Narrative 08/24/2014 1:29 PM CDT PROCEDURE XR LUMBAR SPINE, 3 views, 24 Aug 2014 DESCRIPTION AP and lateral lumbar spine views and collimated lateral L5-S1 projection show no acute fracture or spondylolisthesis. Vertebral body and disc space heights are maintained. There is symmetric sacralization of L5. There is mild degenerative sclerosis of the right L4-L5 apophyseal joint. IMPRESSION 1. mild osteoarthritis 2. no acute changes seen Procedure Note Mike Barber MD - 08/24/2014 PROCEDURE XR LUMBAR SPINE, 3 views, 24 Aug 2014 DESCRIPTION AP and lateral lumbar spine views and collimated lateral L5-S1 projection show no acute fracture or spondylolisthesis. Vertebral body and disc space heights are maintained. There is symmetric sacralization of L5. There is mild degenerative sclerosis of the right L4-L5 apophyseal joint. IMPRESSION 1. mild osteoarthritis 2. no acute changes seen Vito Polnaco Sr., OPTOMETRIST ASSISTANT DIAGNOSTIC IMAGIN G ORDERABLES Final Result documented in this encounter Visit Diagnoses Diagnosis Back pain- Primary Backache, unspecified Back pain Backache, unspecified documented in this encounter Care Teams Stream Control Officer Relationship Specialty Start Date End Date Romel Harrison MD PCP - General Otolaryngology 05/14/15 documented as of this encounter
--- OUTSIDE RECORDS SUMMARY | 2025-02-17 05:12 | XMS_ITS | Clinical Summary ---
Author Organization [facility] Address [address] [address] Phone Care Team Providers Care Bar Tender Name Role Phone Romel Harrison MD Primary Care Provider [phone] Allergies Active Allergy Reactions Criticality Noted Date Comments Oxycodone Hives High 12/16/2012 Medications montelukast (SINGULAIR) 10 mg tablet Take 10 mg by mouth daily at bedtime. Active diphenhydrAMINE (BENADRYL) 25 mg tablet Take 50 mg by mouth every 6 hours as needed for Allergies. Active medroxyPROGESTE Gunnar (PROVERA) 10 mg tablet Take 10 mg by mouth daily. 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 Active metFORMIN (GLUCOPHAGE) 500 mg tablet Take 1,000 mg by mouth 2 times daily with meals. Active fluticasone (FLONASE) 50 mcg/spray Adams, Suspension Administer 2 Sprays in each nostril daily. Active Family History Medical History Relation Name Comments [...] Sign Reading Time Taken Comments Blood Pressure 104/88 05/15/2015 12:21 AM WAX MOLDER Pulse 106 05/22/2014 5:47 PM WAX MOLDER Temperature 36.6 C (97.9 F) 05/15/2015 12:21 AM WAX MOLDER Respiratory Rate 18 05/15/2015 12:21 AM WAX MOLDER Oxygen Saturation 97% 05/15/2015 12:21 AM WAX MOLDER Inhaled Oxygen Concentration - - Weight 129.7 kg (286 lb) 05/14/2015 11:28 PM WAX MOLDER Height 167.6 cm (5' 6 ) 05/14/2015 11:28 PM WAX MOLDER Body Mass Index 46.16 05/14/2015 11:28 PM WAX MOLDER Plan of Treatment Health Maintenance Due Date Last Done Comments DTAP/TDAP/TD VACCINES (1 - Tdap) 2005 HEPATITIS B VACCINES (1 of 3 - 19+ 3-dose series) 08/15 HPV/Cotest (21-29) 09/04/2007 HPV VACCINES (1 - 3-dose SCDM series) 2013 CERVICAL CANCER SCREENING 2016 HPV/Cotest (30-65) 2016 PAP SMEAR 2016 INFLUENZA VACCINE (#1) 2024 Insurance [facility] MEDICAID [place] Care Teams Bar Tender Relationship Specialty Start Date End Date Romel Harrison MD PCP - General Otolaryngology 05/14/15
[2025-02-17 06:21] LABS: Hematocrit 33.7 % (36-47); Hemoglobin 11.30 g/dL (11.27-16.99); Mean Corpuscular HGB Conc 33.5 g/dL (30-55); Mean Corpuscular Hemoglobin 30.1 pg (27-33); Mean Corpuscular Volume 89.9 fl (85-98); Nucleated Red Blood Cells % 0 %; Platelet Count 263 10^3/cmm (157-399); Red Blood Count 3.75 10^6/uL (3.85-5.65); White Blood Count 9.47 10^3/uL (3.29-11.43)
--- NOTE | 2025-02-17 06:42 | PM.OBGYHP ---
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 The patient initiated her health care at [facility], but transferred care to [place] at the beginning of the third trimester. She has several medical problems including hyperprolactinemia, hypothyroidism, obesity, PCOS. But overall, her has been relatively unremarkable. We discussed the pros and cons of a section versus a attempted . After discussion she elected to proceed with a section. We discussed the risks of bleeding, infection, and damage to intra-abdominal organs. We have also discussed her desire for a tubal ligation multiple times. We once again discussed the risks with this including the possibility that she could become again despite a successful tubal ligation. She once again reiterated that she wanted to have this done this morning. Present Details : 3 Para: 1 Labs Rubella: Immune RPR: Negative GBS: Negative Review of Systems General: Reports: 10 or more systems reviewed and unremarkable except in HPI and below Const: Reports: fatigue; Denies: fever(s) Eyes: Denies: change in vision Card: Denies: chest pain Musc: Reports: back pain Pedro/Lymph: Denies: easy bruising Medications/Allergies Home Medications ?Medication ?Instructions ?Recorded ?Confirmed ?Last Taken ?Type multivitamin with minerals-folic 400 mcg PO DAILY 10/09/19 02/17/25 11/17/21 09:00 History acid 200 mcg chewable tablet (Adult Multivitamin Gummies) levothyroxine 75 mcg tablet 75 mcg PO DAILY 07/17/24 02/17/25 Unknown History (Levoxyl) famotidine 20 mg tablet (Pepcid) 20 mg PO DAILY PRN Acid Reflux 10/22/24 02/17/25 Unknown History Allergies Allergy/AdvReac Type Severity Reaction Status Date / Time oxycodone Allergy Intermediate itch Verified 02/17/25 06:12 codeine Allergy ADR-Itching Verified 02/17/25 06:12 PFSH 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 FTP after [address] Chua in [place], [place]. History of colonoscopy 10/2014: Performed by Dr. Molina at [facility]. Family History Mother , Age 56 from colon cancer Thyroid disease Colon cancer Hypertension Family/Other Thyroid disease maternal aunt Breast cancer Great great grandmother Hypertension Paternal aunt Father Diabetes Denies family history of Ovarian cancer Prostate cancer Heart disease Hyperlipidemia Uterine cancer Stroke Social History Smoking and tobacco/nicotine status: never used tobacco/nicotine Other Female Reproductive History: Hx Age of Menarche: 14 History History History 3 Term 1 0 Miscarriages/Ectopic 1 Living Children 1 Care DANIELA Calculator Estimated Delivery Date Method Current WG Current Estimate 02/22/25 LMP (Certain) 39w 2d Other Estimates 02/22/25 Ultrasound #1 39w 2d Specific Issues/Plans PREVIOUS for FTP-- wants to discuss CHIARI [id number] with neurology HYPERPROLACTINEMIA- stopped cabergoline; monitor prolactin levels PCOS-passed early GCT OBESITY HYPOTHYROIDISM-TSH at 16 weeks, 28 weeks and as needed <del>SUB</del> <del>CHOR</del> <del>BLEED</del> <del>at</del> <del>8</del> <del>week</del> Vitals/I&O/Wt Last Vital Signs Pulse 93 02/17/25 06:04 BP 117/59 02/17/25 06:04 O2 Del Method Room Air 02/17/25 05:16 Weight last 48 hrs Weight 310 lb Weight 310 lb Physical Exam Const: COMMON NORMALS: patient oriented x3 and alert HENMT: COMMON NORMALS: moist oral mucous membranes HEAD & SCALP: normal to inspection Chest: COMMONS NORMALS: normal inspection of the chest Resp: COMMON NORMALS: clear to auscultation bilaterally AUSCULTATION: clear to auscultation bilaterally Cardio: COMMON NORMALS: regular rate and regular rhythm RATE: regular rate RHYTHM: regular rhythm GI: INSPECTION: Yes normal to inspection and Yes other (Gravid) Extremity: COMMON NORMALS: normal to inspection GENERAL: Yes edema (Trace) Neuro: COMMON NORMALS: patient oriented x3, moves all extremities and no sensory deficits noted SENSORIUM/ORIENTATION: Yes alert Psych: COMMON NORMALS: mental status grossly normal Skin: COMMON NORMALS: no rashes or lesions noted GENERAL SKIN EXAM: no rashes or lesions noted Data 02/17/25 05:35 Results Labs OB ([facility]): Obstetrics 09/15/24 Blood Type A Positive 08/01/24 Antibody Screen Negative 08/01/24 Hct, (36-47) 33.7 % L Today Hgb, (11.27-16.99) 11.30 g/dL Today Rho(D) Type Rh positive 08/01/24 Plt Count, (157-399) 263 10^3/cmm Today Hep Bs Antigen, (Nonreactive) Non-reactive 08/01/24 Hepatitis C Antibody, (Nonreactive) Non-reactive 08/01/24 Rubella IgG Antibody, (0.0-10.0) 254.6 IU/mL H 08/01/24 RPR, (Nonreactive) Nonreactive 08/01/24 HIV 1&2 Ab & HIV 1 Ag, (Non-Reactiv) Non-reactive 08/01/24 TSH, (0.27-4.20) 1.41 uIU/mL 12/05/24 Free T4, (0.82-1.77) 1.00 ng/dL 12/05/24 Glucose 1 Hr 50 gm, (85-140) 160 mg/dL H 11/10/24 Gest Glucose Tolerance mg/dL 12/05/24 Hemoglobin A1c, (4.0-6.0) 5.0 % 07/17/24 FSH 7.4 mIU/mL 12/31/23 Ser , Semi-Qnt 43702.00 mIU/mL 09/14/24 HCG, Qual, (Negative) Positive H 07/17/24 Urine Opiates Screen, (Negative) Negative ng/mL 08/01/24 Ur Barbiturates Screen, (Negative) Negative ng/mL 08/01/24 Ur Phencyclidine Scrn, (Negative) Negative ng/mL 08/01/24 Ur Amphetamines Screen, (Negative) Negative ng/mL 08/01/24 U Benzodiazepines Scrn, (Negative) Negative ng/mL 08/01/24 Urine Cocaine Screen, (Negative) Negative ng/mL 08/01/24 U Marijuana (THC) Screen, (Negative) Negative ng/mL 08/01/24 Micro Urine Specimen 08/01/24 Pap Smear Interpret See note 08/14/24 Prolactin, (4.8-23.3) 152.2 ng/mL H 12/05/24 A&P Assessment and plan 1. 39 weeks gestation of : Will proceed with both a low-transverse section and a tubal ligation under general anesthesia due to concerns of regarding performing spinal anesthesia given her Chiari malformation. The anesthesia provider discussed with the patient in depth the pros and cons of proceeding with a spinal versus general anesthesia. Jointly they decided to proceed with general anesthesia. 2. Chiari malformation type I: 3. Consultation for sterilization: 4. Previous delivery affecting : 5. Obesity: PDMP PDMP Reviewed: Not Reviewed Attestations Medical Necessity Statement*: I anticipate routine /tubal and post /tubal care. Coding Level of Care Code Acute Code for Chg Fwd Diagnoses 39 weeks gestation of Z3A.39 Chiari malformation type I G93.5 Consultation for sterilization Z30.09 Previous delivery affecting O34.219 Obesity E66.9
[2025-02-17] MEDS: citric acid-sodium citrate 30 mL UDC PO (06:48)
--- NOTE | 2025-02-17 06:48 | P.ANESASSM_ITS ---
Pre-Anesthetic Assessment Height/Weight: Height 5 ft 6 in Weight 310 lb Pulse BP O2 Del Method 93 117/59 Room Air 02/17/25 06:04 02/17/25 06:04 02/17/25 05:16 Preop Diagnosis: Scheduled Operation Date: 02/17/25 07:20 Proposed Procedures p Section Repeat With Tubal 47904, Z34.83(Bilateral) - Romel Pan MD Was Beta Naresh taken within 24 hours: N/A Was Clonidine taken within 24 hours: N/A Last intake: Intake Last Liquid Date 02/16/25 Last Liquid Time 23:59 Last Solid Date 02/16/25 Last Solid Time 23:00 Social No alcohol and No tobacco Exam alert, oriented x 3, clear to auscultation bilaterally and regular rate & rhythm Airway Submandibular: within normal limits Cervical ROM: within normal limits Mallampati: Class II Dentition: full Anesthetic Plan ASA status: 4 Anesthesia: General Other: Patient here for scheduled . I previously saw this patient in preop clinic a few weeks ago Prior was traumatic. They attempted spinal but patient had to be put all the way to sleep because she was feeling everything on 1 side. History of hypothyroidism on Synthroid GERD on Pepcid BMI 50 Patient was diagnosed with a Chiari malformation in July of this year. 7.3 mm below the foramen magnum. Patient admits to headaches 2?3 times a week over her occipital region. She will suddenly have nausea, vomiting and fever associated with these. Per neurology note in July 2024 they are recommending follow-up MRI to access the syrinx once patient delivers. Extensive conversation with patient and family this morning about the risks associated with spinal anesthesia and her Chiari malformation. I informed patient that there were a few clinical case studies showing safe spinal anesthesia with the patient's who have Chiari I malformation's however there is not strong evidence supporting this. After discussions patient would like to pursue going all the way off to sleep. Plan for general anesthesia Medications/Allergies Home Medications ?Medication ?Instructions ?Recorded ?Confirmed ?Last Taken ?Type multivitamin with minerals-folic 400 mcg PO DAILY 09/1502/17/25 11/17/21 09:00 History acid 200 mcg chewable tablet (Adult Multivitamin Gummies) levothyroxine 75 mcg tablet 75 mcg PO DAILY 07/17/24 1 04/19/24 Unknown History (Levoxyl) famotidine 20 mg tablet (Pepcid) 20 mg PO DAILY PRN Ac id Reflux 10/22/24 02/17/25 Unknown History Allergies Allergy/AdvReac Type Severity Reaction Status Date / Time oxycodone Allergy Intermediate itch Verified 02/17/25 06:12 codeine Allergy ADR-Itching Verified 02/17/25 06:12 [facility] Anesthesia Medical History (Updated 02/17/25 @ 06:52 by Romel Pan MD) Hyperprolactinemia No pertinent past medical history neghx: htn, dm, dvt/pe PCP: [place] or Heather Inability to conceive, female Hypothyroidism Polycystic ovarian syndrome Obesity Surgical History Status post laparoscopic cholecystectomy (11/18/21) History of sinus surgery 12/2019 History of tonsillectomy (~2008) History of nasal surgery (~2008) Treatment deviated septum History of foot surgery (~2010) Right foot History of D&C History of delivery (05/03/12) Induced at 37 wks due to low LOLITA. FTP after [address] Chua in [place], [place]. History of colonoscopy 10/2014: Performed by Dr. Molina at [facility] [place]. Family History Mother , Age 56 from colon cancer Thyroid disease Colon cancer Hypertension Family/Other Thyroid disease maternal aunt Breast cancer Great great grandmother Hypertension Paternal aunt Father Diabetes Denies family history of Ovarian cancer Prostate cancer Heart disease Hyperlipidemia Uterine cancer Stroke Social History Smoking and tobacco/nicotine status: never used tobacco/nicotine Female Reproductive History : 3 Data Anesthesia 02/17/25 05:35 Short CBC 02/17/25 Range/Units 05:35 WBC 9.47 (3.29-11.43) 10^3/uL Hgb 11.30 (11.27-16.99) g/dL Hct 33.7 L (36-47) % MCV 89.9 (85-98) fl Plt Count 263 (157-399) 10^3/cmm Neut % (Auto) 74.0 % Neut # (Auto) 7.01 (1.8-7.7) 10^3/uL
[2025-02-17] MEDS: metoclopramide 5 mg/mL SDV 2 mL 10 MG IVP (06:50)
--- NOTE | 2025-02-17 08:43 | PM.OP ---
Operative Report Date of procedure: February 17, 2025 Pre-op diagnosis: 39-year-old 3 para 1-0-1-1 at 39 weeks estimated gestational age presenting for a scheduled repeat section and bilateral tubal ligation Post-op diagnosis: Status post repeat low-transverse section and bilateral tubal ligation using a modified [place] technique. Procedure done: Low-transverse section and bilateral tubal ligation Specimens removed/disposition: 1. Male with Apgars of 9, 9 2. Placenta with a three-vessel cord delivered intact 3. Bilateral fallopian tube segments with the right segment being tagged Pathology: Bilateral fallopian tube segment segments with the right segment being tagged Surgeon: Romel Pan MD Anesthesia: General Estimated blood loss: 1200 Complications: None Procedure: The patient was brought back to the operating room where she was prepped and draped in usual sterile fashion. General anesthesia was then performed due to her Chiari malformation. A lower transverse skin incision was then made with a #10 blade. I then dissected down to the underlying subcutaneous tissue until arriving at the prerectal fascia. The fascia was then nicked with the scalpel bilaterally. The fascial incisions were then carried laterally with Hendricks scissors. Attention was then turned to the superior aspect of the incision which was grasped with kochers and tented up away from the underlying rectus abdominis muscles. The muscles were then dissected away from the fascia manually, and later with Hendricks scissors. Attention was then turned to the inferior aspect of the incision, and the fascia was dissected away from the underlying muscle in similar fashion. The rectus abdominis muscles were then spread manually. The peritoneum was entered manually. Excellent visualization of the uterus was noted. A lower transverse uterine incision was then made with a #10 blade. Upon arriving at the intrauterine cavity, the uterine incision was then extended manually. The infant was noted to be in vertex position. The baby was delivered without difficulty. there was no meconium. There was a nuchal cord x 1. The cord was cut and clamped. The baby was then handed to Dr. Chino in the waiting nurse. The placenta was removed intact. The uterus was externalized. The intrauterine cavity was cleansed of any remaining debris. The uterine incision was reapproximated in 2 layers. The first layer was performed with 0 Vicryl in a running locked stitch. The second layer was an imbricating stitch also using 0 Vicryl. The uterus was replaced into the abdomen. Attention was then turned to the right fallopian tube which was ligated cut and cauterized with 0 chromic in a modified Rodrigo fashion. Attention was then turned to the left fallopian tube which was also ligated cut and cauterized in similar fashion. The uterus was replaced into the peritoneum. The peritoneum was then irrigated with warm saline. I reexamined the uterine incision and found it to be hemostatic. The rectus abdominis muscles were then reapproximated using 0 Vicryl in a running stitch. The fascia was then reapproximated using 0 Vicryl in running stitch. The subcutaneous tissue was reapproximated using 0 Vicryl in a running stitch. 10 mL of bupivacaine were used to infuse incision. The skin was reapproximated using 0 Vicryl in a subcuticular stitch. Benzoin and Steri-Strips were placed. A sterile dressing was placed. All counts were correct x2. Both the mother and baby were in stable condition.
--- NOTE | 2025-02-17 09:03 | ANE.PACU2 ---
Inpatient post-anesthesia follow up: Airway intact: Yes Vital signs: Temperature 98.4 F Pulse Rate 89 Respiratory Rate 16 Blood Pressure 109/58 Pulse Oximetry 100 Oxygen Delivery Me thod Room Air Oxygen Flow Rate Fraction of Inspir ed Oxygen Hydration adequate: Yes Nausea and vomiting: No Pain level: 1 Mental status: Baseline
[2025-02-17] MEDS: morphine 4 mg/mL SDV 1 mL IVP (09:26)
[2025-02-17 17:18] LABS: Hematocrit 27.5 % (36-47); Hemoglobin 9.10 g/dL (11.27-16.99); Mean Corpuscular HGB Conc 33.1 g/dL (30-55); Mean Corpuscular Hemoglobin 29.7 pg (27-33); Mean Corpuscular Volume 89.9 fl (85-98); Platelet Count 219 10^3/cmm (157-399); Red Blood Count 3.06 10^6/uL (3.85-5.65); White Blood Count 11.44 10^3/uL (3.29-11.43)
[2025-02-18 03:09] VITALS: RESP 16
[2025-02-18] MEDS: morphine 4 mg/mL SDV 1 mL IVP (03:09)
[2025-02-18] MEDS: PRENATAL VIT NO.130/IRON/FOLIC 1 EACH TABLET PO (04:17)
[2025-02-18 04:34] VITALS: BP 111/72; PULSE 86; RESP 16; TEMP 36.8; O2SAT 99
[2025-02-18 05:39] LABS: Hematocrit 27.4 % (36-47); Hemoglobin 9.00 g/dL (11.27-16.99); Mean Corpuscular HGB Conc 32.8 g/dL (30-55); Mean Corpuscular Hemoglobin 29.6 pg (27-33); Mean Corpuscular Volume 90.1 fl (85-98); Nucleated Red Blood Cells % 0 %; Platelet Count 227 10^3/cmm (157-399); Red Blood Count 3.04 10^6/uL (3.85-5.65); White Blood Count 10.16 10^3/uL (3.29-11.43)
[2025-02-18] MEDS: ferrous sulfate EC 325 mg Tablet PO ×2 (09:09→18:55)
[2025-02-18 09:15] VITALS: BP 119/68; PULSE 91; RESP 16; TEMP 36.7
[2025-02-18 15:06] VITALS: BP 133/75; PULSE 98; RESP 16; TEMP 36.8
--- NOTE | 2025-02-18 17:16 | P.PN_ITS ---
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 Her Morales was removed. She has passed flatus. She has tolerated a regular diet. Overall, her pain has been well-controlled. There have been no concerns. Vitals/I&O/Wt Last Vital Signs Temp 98.2 F 02/18/25 15:06 Pulse 98 02/18/25 15:06 Resp 16 02/18/25 15:06 BP 133/75 02/18/25 15:06 Pulse Ox 99 02/18/25 04:34 O2 Del Method Room Air 02/18/25 09:15 02/18/25 02/18/25 02/18/25 06:59 14:59 22:59 Output Total 275 / 2155 Balance -275 / -655 Weight last 48 hrs Weight 310 lb Weight 310 lb Physical Exam 2 Narrative: She is in no acute distress Lungs are clear auscultation bilaterally Her heart has a regular rate and rhythm Her fundus is below the umbilicus and firm Her dressing is clean, dry and intact Her extremities have trace edema Urinary Catheter Management: Morales: Cath Placed During This Visit: yes, but has since been removed by the nurse Reason for Continuing Indwelling Catheter: Decision to DC Catheter Urinary Catheter Date of Insertion: 02/17/25 Urinary Catheter Time of Insertion: 07:10 Date Urinary Catheter Removed: 02/18/25 Time Urinary Catheter Discontinued: 01:09 Data 02/18/25 04:35 A&P Assessment and plan 1. Status post : PDMP PDMP Reviewed: Not Reviewed Attestations 2 Medical Necessity Statement*: I anticipate routine about care. Coding Level of Care Code Acute Code for Chg Fwd Diagnoses Status post Z98.891
[2025-02-18 21:04] VITALS: BP 130/66; PULSE 96; RESP 16; TEMP 36.7
[2025-02-19 05:01] VITALS: BP 136/80; PULSE 118
[2025-02-19] MEDS: PRENATAL VIT NO.130/IRON/FOLIC 1 EACH TABLET PO (05:01)
[2025-02-19 05:02] VITALS: BP 136/80; PULSE 100; RESP 16; TEMP 36.7
--- NOTE | 2025-02-19 08:10 | PM.OBGYDC ---
Discharge Providers MODEL SET ARTIST Date of Admission: 02/17/25 05:09 Date of Discharge: 02/19/25 Attending Provider at Admission: Romel Pan MD Attending Provider at Discharge: Romel Pan MD Primary Care Provider: YASMINE Lopez Diagnoses at Discharge Discharge Diagnosis 1. Status post : Reason for Visit Reason for Visit: Updated 02/05/2025 Hospital Course Hospital Course The patient presented to the hospital for a repeat section. Her was unremarkable. Her postoperative course was also unremarkable. Her vitals have been stable. Her bleeding has been within normal limits. Her pain has been well-controlled. She has passed gas and has tolerated regular diet. Information Peripartum Data: Infant Delivery Method: Physical Exam Narrative: She is in no acute distress Lungs are clear auscultation bilaterally Her heart has a regular rate and rhythm Her fundus is below the umbilicus and firm Her incision is clean, dry and intact with Steris in place Her extremities have trace edema Urinary Catheter Management: Morales: Cath Placed During This Visit: yes, but has since been removed by the nurse Reason for Continuing Indwelling Catheter: Decision to DC Catheter Urinary Catheter Date of Insertion: 02/17/25 Urinary Catheter Time of Insertion: 07:10 Date Urinary Catheter Removed: 02/18/25 Time Urinary Catheter Discontinued: 01:09 History History History 3 Term 1 0 Miscarriages/Ectopic 1 Living Children 1 Discharge Data Studies Completed and Pending Pending at discharge Category Date Time Status High Risk PP Hemorrhage Stat Lab 02/17/25 13:24 Received Laboratory Results WBC 10.16 10^3/uL (3.29-11.43) 02/18/25 04:35 RBC 3.04 10^6/uL (3.85-5.65) L 02/18/25 04:35 Hgb 9.00 g/dL (11.27-16.99) L 02/18/25 04:35 Hct 27.4 % (36-47) L 02/18/25 04:35 MCV 90.1 fl (85-98) 02/18/25 04:35 MCH 29.6 pg (27-33) 02/18/25 04:35 MCHC 32.8 g/dL (30-55) 02/18/25 04:35 RDW 13.8 % (12.1-15.1) 02/18/25 04:35 Plt Count 227 10^3/cmm (157-399) 02/18/25 04:35 MPV 9.6 fL (7.4-10.4) 02/18/25 04:35 Neut % (Auto) 78.3 % 02/18/25 04:35 Lymph % (Auto) 11.7 % 02/18/25 04:35 [place] % (Auto) 7.8 % 02/18/25 04:35 Eos % (Auto) 1.4 % 02/18/25 04:35 Baso % (Auto) 0.2 % 02/18/25 04:35 Neut # (Auto) 7.96 10^3/uL (1.8-7.7) H 02/18/25 04:35 Lymph # (Auto) 1.2 10^3/uL (0.8-4.8) 02/18/25 04:35 [place] # (Auto) 0.8 10^3/uL (0.2-0.9) 02/18/25 04:35 Eos # (Auto) 0.1 10^3/uL (0.0-0.8) 02/18/25 04:35 Baso # (Auto) 0.0 10^3/uL (0.0-0.1) 02/18/25 04:35 Nucleated RBC % (auto) 0 % 02/18/25 04:35 Nucleated RBCs # 0.0 /100WBC 02/18/25 04:35 Blood Type A Positive 02/17/25 05:35 Rho(D) Type Rh positive 02/17/25 05:35 Antibody Screen Negative 02/17/25 05:35 Vitals Last Vital Signs Temp 98.0 F 02/19/25 05:02 Pulse 100 02/19/25 05:02 Resp 16 02/19/25 05:02 BP 136/80 02/19/25 05:02 Pulse Ox 99 02/18/25 04:34 O2 Del Method Room Air 02/18/25 09:15 Results Labs OB ([facility]): Obstetrics US 09/15/24 Blood Type A Positive 02/17/25 Antibody Screen Negative 02/17/25 Hct, (36-47) 27.4 % L 02/18/25 Hgb, (11.27-16.99) 9.00 g/dL L 02/18/25 Rho(D) Type Rh positive 02/17/25 Plt Count, (157-399) 227 10^3/cmm 02/18/25 Hep Bs Antigen, (Nonreactive) Non-reactive 08/01/24 Hepatitis C Antibody, (Nonreactive) Non-reactive 08/01/24 Rubella IgG Antibody, (0.0-10.0) 254.6 IU/mL H 08/01/24 RPR, (Nonreactive) Nonreactive 08/01/24 HIV 1&2 Ab & HIV 1 Ag, (Non-Reactiv) Non-reactive 08/01/24 TSH, (0.27-4.20) 1.41 uIU/mL 12/05/24 Free T4, (0.82-1.77) 1.00 ng/dL 12/05/24 Glucose 1 Hr 50 gm, (85-140) 160 mg/dL H 11/10/24 Gest Glucose Tolerance mg/dL 12/05/24 Hemoglobin A1c, (4.0-6.0) 5.0 % 07/17/24 FSH 7.4 mIU/mL 12/31/23 Ser , Semi-Qnt 07296.00 mIU/mL 09/14/24 HCG, Qual, (Negative) Positive H 07/17/24 Urine Opiates Screen, (Negative) Negative ng/mL 08/01/24 Ur Barbiturates Screen, (Negative) Negative ng/mL 08/01/24 Ur Phencyclidine Scrn, (Negative) Negative ng/mL 08/01/24 Ur Amphetamines Screen, (Negative) Negative ng/mL 08/01/24 U Benzodiazepines Scrn, (Negative) Negative ng/mL 08/01/24 Urine Cocaine Screen, (Negative) Negative ng/mL 08/01/24 U Marijuana (THC) Screen, (Negative) Negative ng/mL 08/01/24 Micro Urine Specimen 08/01/24 Pap Smear Interpret See note 08/14/24 Prolactin, (4.8-23.3) 152.2 ng/mL H 12/05/24 Discharge Plan Discharge Patient Disposition: Home Condition: Stable Prescriptions: New ibuprofen 800 mg Tablet 800 mg PO TID Qty: 45 0RF hydrocodone-acetaminophen 10-325 mg Tablet 1 tab PO Q6H PRN (Reason: Severe Pain) Qty: 28 0RF docusate sodium 100 mg Capsule 100 mg PO BID Qty: 30 0RF Continued levothyroxine [Levoxyl] 75 mcg tablet 75 mcg PO DAILY multivit with min-folic acid [Adult Multivitamin Gummies] 200 mcg Tablet,Chewable 400 mcg PO DAILY Discontinued famotidine [Pepcid] 20 mg tablet 20 mg PO DAILY PRN (Reason: Acid Reflux) Discharge Order = DC NOW: Discharge Order (Routine); Ordered 02/19/25 Ordered By: Romel Pan Referrals: Romel Pan MD [Physician, Family Practice] - 02/23/25 4:00 pm Discharge Diet: Usual diet Discharge Activity: Limit activity as instructed Patient Instructions: Depression (DC), Opioid Safety (DC), Preeclampsia and Eclampsia After Delivery (GEN), Hemorrhage (DC), OB - Viviane/Blanche, OB Discharge Report, OB Food/Drug Interaction Guide, OB Care at Home, Opioid Safety, Patient Portal & Shay Instructions, Abnormal Bleeding Discharge Attestations MODEL SET ARTIST Time Spent in Discharge Care*: less than 30 min Coding Level of Care Code Acute Code for Chg Fwd Diagnoses Status post Z98.891
[2025-02-19 09:26] VITALS: BP 100/58; PULSE 108
[2025-02-19 10:03] VITALS: BP 100/58; PULSE 108; RESP 16; TEMP 36.7; O2SAT 98
[2025-02-19 21:36] LABS: High Risk PP Hemorrhage BBK Notified
== END 2025-02-19 10:35 | disposition home or self-care (01) | DRG 539 ==
PROVIDERS: Admitting Provider Family Medicine; PCP Nurse Practitioner Family; Visit Provider Family Medicine
PROC: 10D00Z1 Extraction of Products of Conception, Low, Open Approach (ICD-10-PCS; CPT 59514; principal; 2025-02-17 07:00)
DX: O34.211 Maternal care for low transverse scar from previous cesarean delivery (principal); N85.8 Other specified noninflammatory disorders of uterus; O99.284 Endocrine, nutritional and metabolic diseases complicating childbirth; E03.9 Hypothyroidism, unspecified; O99.214 Obesity complicating childbirth; E66.9 Obesity, unspecified; E28.2 Polycystic ovarian syndrome; O69.81X0 Labor and delivery complicated by cord around neck, without compression, not applicable or unspecified; O99.354 Diseases of the nervous system complicating childbirth; G93.5 Compression of brain; Z3A.39 39 weeks gestation of pregnancy; Z37.0 Single live birth; Z30.2 Encounter for sterilization
CPT/HCPCS: 36415; 51702; 59025; 59409; 85025; 85027; 86850; 86900; 88302; 94640; 96374; 96376; J0330; J1171; J1885; J2270; J2405; J2704; J2765; J3010; J3490; J7030; J7121; J7611; J9999

== ENCOUNTER 2025-04-13 23:21 | Emergency (ER) | payer MEDICAID, SELFPAY ==
--- OUTSIDE RECORDS SUMMARY | 2024-02-09 03:00 | XMS_ITS ---
Author Organization [facility] Address [address] [place] [address] Support Name Relationship Address , Benigno Parnell Emergency Contact Unknown Unavailable Shila Cervantes Guarantor Unknown Unavailable Care Team Providers Care Net Developer Contract Name Role Phone Edy Collins Primary Care Provider Unavailabl e Migration, Provider Unavailable Unavailable REASON FOR VISIT EMR-Albert Encounters Encounter Location Date Provider Diagnosis Migrated_Facility 0 0 02/09/2024 Provider Migration Plan Of Treatment No Information Progress Notes * Denise CERVANTESB:1985 (39 yo F)Acc No.[id number]:02/09/2024 Patient: Bebeto Shila KILLIAN :1985 A ge:38 Y S ex:Female Phone: Address:[address] [place] [address], [phone] Subjective: * Chief Complaints: * E MR-Albert * * Date:
--- OUTSIDE RECORDS SUMMARY | 2024-02-10 03:00 | XMS_ITS ---
Author Organization [facility] Address [address] [place] [address] Support Name Relationship Address , Benigno Parnell Emergency Contact Unknown Unavailable Shila Cervantes Guarantor Unknown Unavailable Care Team Providers Care Tray Room Worker Name Role Phone Edy Collins Primary Care Provider Unavailabl e Migration, Provider Unavailable Unavailable Allergies Allergen (clinical drug ingredient) Drug/Non Drug Allergy documented on EMR Reaction Allergy Type Onset Date Status codeine Codeine Unknown Drug Allergy Active REASON FOR VISIT EMR-Albert Medications Medication SIG (Take, Route, Frequency, Duration) Notes Start Date End Date Status Ibuprofen *Pick strength-f orm from [facility] for eRX* Active Social History Social History Additional Details Category Social Info Options Details Migrated Social History Migrated Social History Alcoholic beverages? - No, Applying for disability? - No, Are you or is there a chance you could be - No, Drug or substance abuse? - No, Involved in any legal proceedings or lawsuits? - No, Marital Status - single, Nonprescription drug use? - No, Participation in detoxification or rehabilitation - No, Smoking - No, Working currently? - Yes Encounters Encounter Location Date Provider Diagnosis Migrated_Facility 0 0 02/10/2024 Provider Migration Plan Of Treatment No Information Progress Notes * Denise CERVANTESB:1985 (39 yo F)Acc No.[id number]:02/10/2024 Patient: Bebeto KILLIAN Shila :1985 A ge:38 Y S ex:Female Phone: Address:[address] [place] [address], [phone] Subjective: * Chief Complaints: * E MR-Albert * Surgical History: section Colonoscopy D and C Deviated septum surgery Right Foot Arch Mass Removed Sinus surgery Tonsillectomy * Family History: M igrated Family History: : Cancer, D iabetes, D rug addiction, f ibromyalgia, p sychiatric problems. * Social History: M igrated Social History: M igrated Social History: Alcoholic beverages? - No, A pplying for disability? - No, A re you or is there a chance you could be - No, D rug or substance abuse? - No, I nvolved in any legal proceedings or lawsuits? - No, M arital Status - single, N onprescription drug use? - No, P articipation in detoxification or rehabilitation - No, S moking - No, W orking currently? - Yes. * Medications: T akingIbuprofen , Notes to Pharmacist: *Pick strength-form from [facility] for eRX*Taking Ibuprofen , Notes to Pharmacist: *Pick strength-form from [facility] for eRX* * Allergies: C shabnam: Allergy * * Date:
--- OUTSIDE RECORDS SUMMARY | 2025-04-13 23:29 | XMS_ITS | Continuity of Care Document ---
Author Organization YULIYA Deal [facility] Lisa, See, [facility] ([facility]) Address [address] [place] [address] Care Team Providers Care Ladle Car Operator Name Role Phone ESPERANZA MADINA Primary Care Provider Unavailabl e Assessment No assessment recorded. Plan of Treatment Reminders Order Date Submit Date Provider Last Modified By Organization Details Last Modified Time Details Appointments None record ed. Lab None record ed. Referral None record ed. Procedures None record ed. Surgeries None record ed. Imaging None record ed. Medication Orders None record ed. Patient TargetsNo targets recorded. Patient InstructionsNo instructions recorded. Reason for Referral None Reported. Results Created Date Observation Date Name Description Value Unit Range Abnormal Flag Note LastModifiedBy Organization Detail LastModifiedTime 01/24/2001/26/2025 STREP TOCOC CUS, GROUP B CULTU RE streptococcu s, group B culture SEE NOTE STREP TOCOC CUS, GROUP B CULTU RE Micro Numbe r: [id number] Test Statu s: Final Speci men Sourc e: Vagin al/an orect al Speci men Quali ty: Adequ ate Resul t: No group B Strep tococ cus isola veronica Note per CDC guide lines optim al recov marlin is achie lisa by swabb ing both the lower vagin a and rectu m (thro ugh the anal sphin cter) . Not Available [facility] [address] , [place], [address], 01/26/2025 11:13:15 01/30/2001/30/2025 CHLAM YSABAA/ N.HILDA ORRHO EAE AND T. VAGIN MAG RNA, QL TMA chlamydia trachomatis RNA, tma, urogenital NOT DETECT ED not detect ed normal Not Available [facility] [place] [address] [place], [address], 01/30/2025 11:23:54 01/30/2001/30/2025 CHLAM YDIA/ N.HILDA ORRHO EAE AND T. VAGIN MAG RNA, QL TMA neisseria gonorrhoeae RNA, tma, urogenital NOT DETECT ED not detect ed normal Not Available [facility] [place] [address] [place], [address], 01/30/2025 11:23:54 01/30/2001/30/2025 CHLAM YDIA/ N.HILDA ORRHO [...] rodrick portillo e refer to https ://ed ati on.qu jerryvarinode. Lenda/f aq/FA Q154 (This link is being provi ded for infor sarah beth rosa/ educa michelle l purpo ses only. ) Not Available [facility] [place] [address] , [place], [address], 01/30/2025 11:23:54 01/30/2001/30/2025 CHLAM YDIA/ N.HILDA ORRHO EAE AND T. VAGIN MAG RNA, QL TMA trichomonas vaginalis RNA, ql tma NOT DETECT ED not detect ed normal For addit ional infor rodrick portillo e refer to http: //esequiel rosa.que stdia gnost ics.c om/ faq/T damir yeung tma (This link is being provi ded for infor matio nal/ educa michelle l purpo ses only. ) Not Available [facility] [address], [place], [address], 01/30/2025 11:23:54 01/14/20 25 01/06/2025 US, obste tric, follo w-up No observ ation record ed. [email or web address] [place] [address] [place], [address], 01/14/2025 12:03:40 Result Notes None recorded. Problems Name Problem SNOMED Code Status Onset Date Resolution Date Notes Provider Name and Address Organization Details Recorded Time Acute otitis externa of right ear [id number] Amparo MADINA ESPERANZA, [address], [address] , [facility] 5 12:13:28 Hearing loss 15489787 Amparo MADINASho MATA, [address], [address] , [facility] 12:13:28 Past pregnanc y history of section 517271492 Amparo MADINASho MATA, [address], [address] , [facility] 5 12:13:28 Bleeding from female genital tract during pregnanc y [id number] 816132 Amparo MADINA ESPERANZA [address], [address] , [facility] 12:13:28 Hyperpro lactinem ia 589495958 Amparo MADINASho MATA, [address], [address] , [facility] 5 12:13:29 Bleeding from nose 119481772 Amparo MATA, [address], [address] , [facility] 5 12:13:29 Recurren t bleeding of nose Amparo MATA, [address], [address] , [facility] 5 12:13:29 Cervicog enic headache 250374227 Amparo MATA, [address], [address] , [facility] 5 12:13:29 Right sided abdomina l pain 953222008 Amparo MATA, [address], [address] , [facility] 5 12:13:29 Patient encounte r status [id number] Amparo MATA, [address], [address] , [facility] 5 12:13:29 Bronchit is [id number] Amparo MATA, [address], [address] , [facility] 5 12:13:29 Strain of neck muscle 222240405 Amparo MATA, [address], [address] , [facility] 5 12:13:29 Chronic sinusiti s 06275637 Amparo MATA, [address], [address] , [facility] 5 12:13:29 Hypothyr oidism 58563175 Amparo MATA, [address], [address] , [facility] 5 12:13:29 Obesity 063822203 Amparo MATA, [address], [address] , [facility] 5 12:13:29 Refracto ry migraine without aura 225189614 Amparo MATA, [address], [address] , [facility] 5 12:13:29 Arthriti s of acromioc lavicula r joint 737581272 Amparo MATA, [address], [address] , [facility] 5 12:13:29 Oligomen orrhea [id number] Amparo MATA, [address], [address] , [facility] 5 12:13:29 Chronic otitis externa 06237063 Amparo MATA, [address], [address] , [facility] 5 12:13:29 Subchori onic hematoma 381289394 Amparo MATA, [address], [address] , [facility] 5 12:13:29 Allergic rhinitis 02095907 Amparo MATA, [address], [address] , [facility] 5 12:13:29 Congenit al deviatio n of nasal septum 32022992 [facility] MADINA MATA, [address], [address] , [facility] 5 12:13:29 Female infertil ity 0445221 Active MADINA MATA, [address], [address] , [facility] 5 12:13:29 Posterio r rhinorrh ea [id number] [facility] MADINA MATA, [address], [address] , [facility] 5 12:13:29 Pain in face [id number] [facility] MADINA M[address], [address] , [facility] 5 12:13:29 History of cholecys tectomy 742408023 Active 2021 MADINA MATA, [address], [address] , [facility] 5 12:13:29 Family history of malignan t neoplasm of digestiv e organ 815927257 Active 2021 FAMILY HISTORY OF COLON CANCER IN MOTHER; Recorded 03/23/20 22 1:40PM by Homa Gaines CMT, Office Visit; Promoted ; acuity set as *; Not Available [facility] 3 03:07:44 Polycyst ic ovary syndrome 219470290 Active 2022 PCOS (POLYCYS TIC OVARIAN SYNDROME ); Recorded 06/02/19 23 1:39PM by Homa Gaines CMT, Historic al Summary; Promoted ; acuity set as *; Not Available [facility] 3 03:07:43 Chiari malforma tion type I 753911198 Active 2024 MADINA MATA, [address], [address] , [facility] 12:13:29 Uterine leiomyom a 67367304 Active 2024 MADINA MATA, [address], [address] , [facility] 12:13:29 Pregnanc y 96119852 Completed 202402/23/2025 ANISH STERLING ER null, [facility] 16:50:49 Maternal obesity complica ting pregnanc y, childbir th and the puerperi um, antepart um 56023196565 7 Active 2024 Romel Pan MD [address] [place], [place] [id number] , [facility] 14:58:39 Uterine size for dates discrepa ncy 675549272 Active 2024 Romel Pan MD [address] [place] [address], [address] , [facility] 15:01:50 Seasonal allergy 076838301 Active 2024 Romel Pan MD [address] [place], [place] [address] , [facility] 12:46:17 Notes:Some problems listed i n Document: #[id number] could not be added to this patient's chart. Please review this document and add these problems to the patient's chart manually as needed. Problem Notes None recorded. Procedures Surgical History Date Name Laterality Status Provider Name and Address Organization Details Recorded Time 025 ligation of fallopian tube completed ANISH CONNOLLY [facility] 02/23/2025 16:52:51 025 section completed [facility], See 02/23/2025 16:52:34 025 Toenail avulsion completed HENNA BELLO PA-C [address] [place], [address], [facility], See 11/10/2024 14:04:46 025 Date of Last Pap Smear completed [facility], See 01/06/2025 18:30:05 025 liquid based cervical cytology screening completed [facility], See 01/06/2025 18:30:38 024 US scan of abdomen and pelvis completed [facility], See 09/25/2023 18:31:26 023 MRI of right shoulder completed [facility], See 09/07/2022 12:50:22 colonoscopy completed [facility], See 02/23/2025 16:53:48 endoscopy and biopsy of upper gastrointestinal tract completed [facility], See 02/23/2025 16:54:16 dilation and curettage completed [facility], See 02/23/2025 16:54:53 [facility] nose [facility] 02/23/[facility]25 16:56:09 [facility] 02/22/2023 10:37:49 [facility]/22/[facility]23 10:38:10 Imaging Results None recorded. Procedure Notes None recorded. Medical Equipment None Reported. Allergies Allergen ID Allergen Name Allergen Category Reaction Reaction Severity Criticality Documentation Date Start Date Code Code System Note Provider Name and Address Organization Details Recorded Time 20364 codeine phosphate medicatio n itching Not available Not available 11/11/2022 2672 RxNorm React ion: Itchi ng; Comme nt: Recor ded 03/23 1:40P M by Monica olvera, CMT, Offic e Visit ; Liam martin; Lesly velazquez ce: *; Reaso n: Drug aller gy; ; HOMA GAINES [facility] 3 10:33:25 58113 codeine medicatio n Not available Not available Not available 11/11/20222024 2670 RxNorm Other react ions and sever ities : 'Skin pruri tus'. MADINA ESPERANZA, [address], [address], [facility] 5 12:13:16 66211 oxycodone medicatio n Not available Not available Not available 11/12/20242024 7804 RxNorm MADINA ESPERANZA, [address], [address], [facility] 5 12:13:16 Medications Name Sig Start Date [...] Not Available Not Available Not Available azithromy jason 250 mg tablet TAKE 2 TABLETS BY MOUTH TODAY, THEN TAKE 1 TABLET DAILY ON DAYS 2-5 09/17 completed Not Available Not Available Not Available ibuprofen 800 mg tablet TAKE 1 TABLET BY MOUTH THREE TIMES DAILY active Not Available Not Available No t Available fluconazo le 150 mg tablet TAKE [...] Available Not Available Not Available hydrocodo ne 10 mg-acetam inophen 325 mg tablet TAKE 1 TABLET BY MOUTH EVERY 6 HOURS as needed for severe pain 02/23 completed Not Available Not Available Not Available levothyro xine 75 mcg tablet TAKE 1 TABLET BY MOUTH EVERY DAY ON EMPTY STOMACH active Not Available Not Available No t Available Macrobid 100 mg capsule Take 1 capsule twice a day by oral route for 5 days, for infectio n. 11/30 completed Not Available Not Available Not Available famotidin e 20 mg tablet Take 20 mg by oral route. 02/23 completed Not Available Not Available Not Available levothyro xine 50 mcg tablet TAKE 1 [...] Not Available docusate sodium 100 mg capsule take 1 capsule BY MOUTH TWICE DAILY active Not Available Not Available No t Available monteluka st 10 mg tablet TAKE [...] fluoxetin e every other day 02/22 completed 19256; Recorded 08/18/19 21 7:47AM by Alejandrina Rocha LPN (Authori tonya through YASMINE Mendoza), Office Visit; Refill Quantity : 90; Capsule; Not Available Not Available Not Available progester one daily 02/22 completed 73334; Recorded 02/17/20 22 2:01PM by Homa Gaines [...] mass index (BMI) Body weight Oxygen saturation Heart rate Respiratory rate Body temperature Systolic And Diastolic Provider Name and Address Organization Details Last Updated DateTime 166.37 cm 50.2 kg/m2 540910. 97 g 98 % 112 /min 18 /min 98.5 [degF] 124/76 mm[Hg] ANISH MOREIRA [facility] 14:11:55 Social History Question Answer Notes LastModified by Organizat ion Details LastModified Time Tobacco Smoking Status Never Smoker [facility] 02/22/2023 10:36:25 Which Illicit Or Recreational Drugs Have You Used? Occasional Marijuana [email or web address] Information not available 02/22/2023 What Was The Date Of Your Most Recent Tobacco Screening? 11/07/2024 [email or web address] Information not available 11/07/2024 What Is Your Relationship Status? Information not available 02/22/2023 Sex: Unknown Functional Status Question Answer Note LastModified by Organizat ion Details LastModified Time Do you use any illicit or recreational drugs? Yes [email or web address] Information not available 02/22/2023 What is your level of alcohol consumption? Occasional [email or web address] Information not available 08/20/2023 Are you currently employed? Yes [email or web address] Information not available 02/22/2023 Are you able to care for yourself independently? Yes [email or web address] Information not available 02/22/2023 Mental Status None recorded. Family History Relationship Description Onset Age of this Age Resolved Age Notes LastModified by Organization Details LastModified Time Mother Malignant neoplasm of colon deceas ed age 58 [email or web address] Not available 02/22/2023 10:34:40 Father Type 2 diabetes mellitus Not available 02/22 10:34:58 Medical History Condition Response Coronary Artery Disease N Gout N Other N Blood Diseases N Kidney Stones N Hyperthyroidism N Breast Cancer N Blood Transfusion N Hypothyroidism Y Lung Disease N COPD N Depression N Developmental or Behavioral Disorders N Defects or Inherited Disease N Breast Problem N Difficulty Swallowing N Anesthesia Complications N Meniere's disease N Anxiety Disorder Y Muscle, Joint, or Bone Problems N Vision or Eye Problems Y Arthritis Y Polyps N Infertility N Cancer N Varicosities N Stroke N Endometriosis N Bladder or Kidney Problems [...] Smear 08/14/2024 Obstetrics History GPAL:G 3 P 2 0 1 2 Type Value Full Term 2 Spontaneous 1 Living 2 Total 3 Immunizations Vaccine Type Date Status Note Provider Nam e and Address Organization Details Recorded Time Influenza, split virus, trivalent, preservative 6 completed MADINA MATA LIBRARY MEDIA TECHNICIAN [address] [place], [address], [facility] 02/22/2023 11:12:44 Hib, unspecified formulation 0 completed MADINA MATA LIBRARY MEDIA TECHNICIAN [address] [place], [address], [facility] 02/22/2023 11:12:44 MMR 0 completed MADINA MATA, [address], [address], [facility] 02/22/2023 11:12:44 MMR 0 completed MADINASho VARNERESPERANZA, [address], [address], [facility] 02/22/2023 11:12:44 Tdap 4 completed MADINASho VARNERESPERANZA, [address], [address], [facility] 02/22/2023 11:12:44 Hep B, unspecified formulation 8 completed MADINASho VARNERESPERANZA, [address], [address], [facility] 02/22/2023 11:12:44 polio, unspecified formulation 8 completed MADINASho VARNERESPERANZA, [address], [address], [facility] 02/22/2023 11:12:44 polio, unspecified formulation 2 completed MADINASho VARNERESPERANZA, [address], [address], [facility] 02/22/2023 11:12:44 polio, unspecified formulation 0 completed MADINA MATA, [address], [address], [facility] 02/22/2023 11:12:44 polio, unspecified formulation 3 completed MADINA VARNERTES, [facility] [address] [place], [address], [facility] 02/22/2023 11:12:44 Hep B, adult 6 completed ANISH harris, [facility] 12/24/2024 14:12:25 Hep B, adult 4 completed ANISH CONNOLLY null, [facility] 12/24/2024 14:12:25 DTaP 8 completed MADINA MATA, [address], [address], [facility] 02/22/2023 11:12:44 DTaP 2 completed MADINA MATA, [address], [address], [facility] 02/22/2023 11:12:44 DTaP 0 completed MADINA MATA, [address], [address], [facility] 02/22/2023 11:12:44 DTaP 3 completed MADINA MATA, [address], [address], [facility] 02/22/2023 11:12:44 Tdap 4 completed Not Available [facility] 02/23/2025 16:32:48 Hep A, adult 4 completed ANISH harris, [facility] 12/24/2024 14:12:25 Hep A, adult 4 completed Not Available [facility] 02/23/2025 16:32:48 RSV, bivalent, protein subunit RSVpreF, diluent reconstituted, 0.5 mL, PF 5 completed Not Available [facility] 02/23/2025 16:32:48 Tdap completed [facility] Available [facility] 02/23/2025 16:32:48 Past Encounters Encounter ID Performer Location Encounter Start Date Encounter Closed Date Diagnosis/Indication Diagnosis SNOMED-CT Code Diagnosis ICD10 Code Diagnosis IMO Codes Diagnosis Note [id number] Romel Pan MD [facility] [address] [place] [address] 5 01/23/2025 11:22:39 01/23/2025 13:31:15 [id number] Z34.90 Gestation period, 35 weeks 37894912 Z3A.35 1154934 Seasonal allergy 7540703 04 J30.2 09741 [id number] Romel Pan MD [facility] ([facility]) [address] [place] [address] 5 01/29/2025 09:49:03 01/29/2025 11:19:50 [id number] Z34.90 Gestation period, 36 weeks 23254019 Z3A.36 1551279 [id number] Romel Pan MD [facility] ([facility]) [address] [place] [address] 5 02/06/2025 13:56:13 02/06/2025 14:34:30 [id number] Z34.90 Gestation period, 37 weeks 46480754 Z3A.37 2203821 Health Concerns Section Related Observation LastModified by Organization Detai ls LastModified Time None Recorded Concern Status LastModified by Organization Details LastModified Time None Recorded Payers Encounter Date Sequence Insurance Name Policy Number Policy Peterson Covered Member ID Peterson Member ID Guarantor Name 02/06/2025 1 [facility] (MEDICAID HMO) Shila Tarango [id number] Shila Tarango Notes Date Note Type Note Provider [...] as noted in the HPI [facility] Neil Pan MD [address] [place] [address], [phone] , [facility], [facility] 02/06/2025 14:31:08 OBGyn Episode Ob Episode Information Episode Created Date Number of Fetuses Patient Bloodtype Patient rh Status Prepregnancy Weight lbs Domestic Partner Domestic Partner Phone Father Name Ticket Printer Status 12/25/19 25 1 A Positive Benigno CLOSED Fetus Data First Name Last Name Admitted to NICU Weight (g) Sex Living Outcome Pediatric Complications Fetus ID Race Codes Race Delivery Type Kofi false [phone] M true Full Term [id number] Daniela Calculation Initial Daniela Date Initial [...] Weight in lbs Pre/Post Dialysis Refused Weight 295.60547068040 BP Diastolic BP Location Tested BP Systolic [...] Weight in lbs Pre/Post Dialysis Refused Weight 301.510409095406 BP Diastolic BP Location Tested BP Systolic [...] Weight in lbs Pre/Post Dialysis Refused Weight 304.176610083975 BP Diastolic BP Location Tested BP Systolic [...] Weight in lbs Pre/Post Dialysis Refused Weight 309.714577465411 BP Diastolic BP Location Tested BP Systolic [...] Weight in lbs Pre/Post Dialysis Refused Weight 306.580627630579 BP Diastolic BP Location Tested BP Systolic [...] Weight in lbs Pre/Post Dialysis Refused Weight 308.116126627012 BP Diastolic BP Location Tested BP Systolic BP Type 74 120 sitting Fetus Heart Rate Present A 136 Present Fetus Movement A Yes Comments pelvic/vaginal pressure, hea dache, heartburn, comstipation Flowsheet Date 02/23/2025 Hartman Score Blood Edema Fundus Height Fundus Units Glucose Ketones Leukocytes Nitrite Labor Signs Protein Cervic Dilation Cervic Effacement Cervic Station Type Weight in lbs Pre/Post Dialysis Refused Weight 311.997153500556 BP Diastolic BP Location Tested BP Systolic BP Type 72 124 sitting Fetus Heart Rate Present Fetus Movement Comments Menstrual History Last Menstrual Date Menses Monthly On Bcp Conception Prior Menses Frequency Hcg Plus Date Menarche Onset Age Genetic Screening And Infection History Question Response Note Patient's Age Will Be 35 Years Or Older At Estim ated Date of Delivery true Thalassemia (Citizen Of [place], Chinese, Mediterranean, Or Background): MCV < 80 false Neural Tube Defect (Meningomyelocele, Spina Bifi da, Or Anencephaly) false Congenital Heart Defect false Down Syndrome false Kasi-Sachs (eg, Advent, Cajun, Dutch-Hickman) f alse Annmarie Disease false Sickle Cell Disease Or Trait () false Hemophilia Or Other Blood Disorders false Muscular Dystrophy false Cystic Fibrosis false [place]'s Chorea false Intellectual Disability/Autism false If Yes, [...] Post Complications Tubal Sterilization Discharge Date Comments 5 39.2 false Romel Pan MD true Discharge Information Feeding Method Contraceptive Method Maternal HG B and HCT Levels Breast
--- OUTSIDE RECORDS SUMMARY | 2025-04-13 23:29 | XMS_ITS | Encounter Summary ---
Author Organization [facility] Address [address] [place] [address] Care Team Providers Care Loan Auditor Name Role Phone Romel Harrison MD Primary Care Provider Encounter Details Date Type Department Care Team (Late st Contact Info) Description 10/27/2013 Ancillary Orders [facility] Services [place] [address] [place] [address] Polycystic ovaries; Other diseases of [...] - 4.80 uIU/mL 10/27/2013 10:52 PM CDT [facility] [place] [facility] Blood Collection / Unknown 10/27/2013 9:58 PM CDT 10/27/2013 9:59 PM CDT us Lupillo Mckeon DO CHEMISTRY ORDERABLES Final Resu lt [facility] CLIA # [id number] [address] [facility] [address] [place] [address] * COMPREHENSIVE METABOLIC PANEL (10/27/2013 9:58 PM CDT) SODIUM 140 136 - 145 mmol/L 10/27/2013 11:30 PM CDT [facility] [place] POTASSIUM 3.8 3.5 - 5.1 mmol/L 10/27/2013 11:30 PM CDT [facility] [place] CHLORIDE 105 98 - 107 mmol/L 10/27/2013 11:30 PM CDT [facility] [place] [facility] CO2 26 21 - 32 mmol/L 10/27/2013 11:30 PM CDT [facility] [place] CALCIUM 8.6 8.5 - 10.1 mg/dL 10/27/2013 11:30 PM CDT [facility] BUN 11 7 - 18 mg/dL 10/27/2013 11:30 PM CDT [facility] [place] CREATININE 1.10 0.60 - 1.30 mg/dL 10/27/2013 11:30 PM CDT [facility] [place] GLUCOSE 87 74 - 106 mg/dL 10/27/2013 11:30 PM CDT [facility] [place] [facility] TOTAL PROTEIN 7.4 6.4 - 8.2 g/dL 10/27/2013 11:30 PM CDT [facility] [place] ALBUMIN 3.8 3.4 - 5.0 g/dL 10/27/2013 11:30 PM CDT [facility] [place] BILIRUBIN TOTAL 0.3 0.2 - 1.0 mg/dL 10/27/2013 11:30 PM CDT [facility] [place] ALKALINE PHOSPHATASE 115 50 - 136 U/L 10/27/2013 11:30 PM T [facility] AST 21 15 - 37 U/L 10/27/2013 11:30 PM T [facility] ALT 49 30 - 65 U/L 10/27/2013 11:30 PM T [facility] GFR 60 >=60 mL/min/1.7 3 sq meter 10/27/2013 11:30 PM T [facility] Comment: eGFR has not been validated [...] mL/min/1.7 3 sq meter 10/27/2013 11:30 PM T [facility] Blood Collection / Unknown 10/27/2013 9:58 PM CDT 10/27/2013 9:59 PM CDT us Lupillo Mckeon DO CHEMISTRY ORDERABLES [id number] [address] [place] [id number] documented in this encounter Visit Diagnoses Diagnosis Polycystic ovaries Other diseases of respiratory system, not elsewhere classified documented in this encounter Care Teams Loan Auditor Relationship Specialty Start Date End Date Romel Harrison MD PCP - General Otolaryngology 05/14/15 documented as of this encounter
--- OUTSIDE RECORDS SUMMARY | 2025-04-13 23:29 | XMS_ITS | Encounter Summary ---
Author Organization [facility] Address [address] [place] [address] Care Team Providers Care Transit Driver Name Role Phone Romel Harrison MD Primary Care Provider Encounter Details Date Type Department Care Team (Latest Contact Info) Description 08/20/2014 Ancillary Orders [facility] Scheduling [address] [place] [address] [facility][1] , YASMINE Gavin [address] [place] [address] Back pain (Primary Dx) Social [...] osteoarthritis 2. no acute changes seen Vito Polanco Sr., ADMINISTRATIVE SUPPORT ASSISTANT DIAGNOSTIC IMAGIN G ORDERABLES Final Result documented in this encounter Visit Diagnoses Diagnosis Back pain- Primary Backache, unspecified Back pain Backache, unspecified documented in this encounter Care Teams Transit Driver Relationship Specialty Start Date End Date Romel Harrison MD PCP - General Otolaryngology 05/14/15 documented as of this encounter
--- OUTSIDE RECORDS SUMMARY | 2025-04-13 23:29 | XMS_ITS | Encounter Summary ---
Author Organization [facility] Address [address] [place] [address] Care Team Providers Care Degreasing Wheel Operator Name Role Phone Romel Harrison MD Primary Care Provider Reason for Referral * Outpatient Services (Routine) - Closed Specialty Diagnoses / Procedures Referred By Susan kennedy Referred To Contact Radiology Diagnoses Abdominal pain Diarrhea Procedures US ABDOMEN LIMITED Vito Polanco Sr., FNP [address] [place] [address] Phone: tel: fax: [facility] [address] [place] [address] Phone: tel: fax: Referral ID Status Reason Start Date Expiration Date V isits Requested Visits Authorized [id number] Closed [facility] View CTS to Schedule (SGF) 08/20/2014 09/20/2015 1 1 Encounter Details Date Type Department Care Team (Latest Contact Info) Description 08/20/2014 Ancillary Orders [facility] Centralized Scheduling [address] [place] [id number] Vito Polanco Sr., FNP [address] [place], [place] [address] Abdominal pain (Primary Dx); Diarrhea Social History [...] ultrasound findings appreciated us Vito Polanco Sr., SALES ACCOUNT LEADER US ORDERABLES F inal Result documented in this encounter Visit Diagnoses Diagnosis Abdominal pain- Primary Abdominal pain, unspecified site Diarrhea Abdominal pain Abdominal pain, unspecified site Diarrhea documented in this encounter Care Teams Degreasing Wheel Operator Relationship Specialty Start Date End Date Romel Harrison MD PCP - General Otolaryngology 05/14/15 documented as of this encounter
--- OUTSIDE RECORDS SUMMARY | 2025-04-13 23:29 | XMS_ITS | Clinical Summary ---
Author Organization [facility] Address [address] [address] Phone Care Team Providers Care Nail Feeder Name Role Phone Romel Harrison MD Primary Care Provider Allergies Active Allergy Reactions Criticality Noted Date [...] tablet Take 100 mcg by mouth daily respiratory technician. Active metFORMIN (GLUCOPHAGE) 500 mg tablet Take 1,000 mg by mouth 2 times daily with meals. Active fluticasone (FLONASE) 50 mcg/spray [place], Suspension Administer 2 Sprays in each nostril [...] Comments Blood Pressure 104/88 05/15/2015 12:21 AM [facility] Pulse 106 05/22/2014 5:47 PM [facility] Temperature 36.6 C (97.9 F) 05/15/2015 12:21 AM [facility] Respiratory Rate 18 05/15/2015 12:21 AM [facility] Oxygen Saturation 97% 05/15/2015 12:21 AM [facility] Inhaled Oxygen Concentration - - Weight 129.7 kg (286 lb) 05/14/2015 11:28 PM [facility] Height 167.6 cm (5' 6 ) 05/14/2015 11:28 PM [facility] Body Mass Index 46.16 05/14/2015 11:28 PM [facility] Plan of Treatment Health Maintenance Due Date Last Done Comments DTAP/TDAP/TD VACCINES (1 - Tdap) 2005 HEPATITIS B VACCINES (1 of 3 - 19+ 3-dose series) 08/15 HPV/Cotest (21-29) 09/04/2007 CERVICAL CANCER SCREENING 2016 HPV/Cotest (30-65) 2016 PAP SMEAR 2016 INFLUENZA VACCINE (#1) 2024 HPV VACCINES (No Doses Required) Completed Insurance [facility] MEDICAID [place] Care Teams Nail Feeder Relationship Specialty Start Date End Date Romel Harrison MD PCP - General Otolaryngology 05/14/15
--- OUTSIDE RECORDS SUMMARY | 2025-04-13 23:29 | XMS_ITS | Patient Health Record ---
Author Organization [facility] Address [address] [place] [address] Support Name Relationship Address , Benigno Parnell Emergency Contact Unknown Unavailable Shila Tarango Guarantor Unknown Unavailable Care Team Providers Care Computer Networking Instructor Adjunct Name Role Phone Edy Collins Primary Care Provider Unavailabl e Reason For Referral No Information Medications Medication SIG (Take, Route, Frequency, Duration) Notes Start Date End Date Status Ibuprofen *Pick strength-f orm from [facility] for eRX* Active Social History Social [...] (General) History Surgical History Surgery Date(Month/Year) section Colonoscopy D and C Deviated septum surgery Right Foot Arch Mass Removed Sinus surgery Tonsillectomy
--- OUTSIDE RECORDS SUMMARY | 2025-04-13 23:29 | XMS_ITS | Clinical Summary ---
Author Organization [facility] Address [address] 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 Gender Identity Not on file Sexual Orientation [...] Maintenance Due Date Last Done Comments HPV/Cotest (-) 09/04/2007 HEPATITIS B VACCINES (2 of 3 - 3-dose series) 07/07/2015 06/09/2015, 01/28/2014, 10/20/1997 CERVICAL CANCER SCREENING 2016 HPV/Cotest (30-65) 2016 PAP SMEAR 2016 INFLUENZA VACCINE (#1) 2024 04/16/2015 DTAP/TDAP/TD VACCINES (7 - T d or Tdap) 09/17/2033 09/18/2023, 01/28/2014, 12/14/1992, Additional history exists HPV VACCINES (No Doses Required) Completed RSV VACCINE (60+ or ) (No Doses Required) Completed Insurance [facility] [employer] MEDICAID Care Teams Molded Grid And Parts Inspector Relationship Specialty Start Date End Date Romel Harrison MD PCP - General Otolaryngology 05/14/15
--- OUTSIDE RECORDS SUMMARY | 2025-04-13 23:30 | XMS_ITS | Continuity of Care Document ---
Author Organization YULIYA Deal [facility] See Gonzalez, [facility] ([facility] Address [address] [place] [address] Care Team Providers Care Stitching Machine Setter Name Role Phone MADINA MATA Primary Care Provider Unavailabl e Assessment No assessment recorded. Plan of Treatment Reminders Order Date Submit Date Provider Last Modified By Organization Details Last Modified Time Details Appointments None recorded. Lab streptococc us group B, culture, unspecified specimen 2024 [employer] [facility], [address] [address], [address] [place], [address], 11:13:15 Referral None recorded. Procedures None recorded. Surgeries None recorded. Imaging None recorded. Medication Orders montelukast 10 mg tablet 2024 [facility], [address] [place], [address], 17:48:46 Patient TargetsNo targets recorded. Patient InstructionsNo instructions recorded. Reason for Referral None Reported. Results Created Date Observation Date Name Description Value Unit Range Abnormal Flag Note LastModifiedBy Organization Detail LastModifiedTime 01/24/2001/26/2025 STREP TOCOC CUS, GROUP B CULTU RE streptococcu s, group B culture SEE NOTE STREP TOCOC CUS, GROUP B CULTU RE Micro Numbe r: [id number] Test Statu s: Final Speci men Sourc e: Vagin al/an orect al Speci men Quali ty: Adequ ate Resul t: No group B Strep tococ cus isola veronica Note per CDC guide lines optim al recov marlin is achie lisa by swabb ing both the lower vagin a and rectu m (thro ugh the anal sphin cter) . Not Available [facility] [address], [place], [address], 01/26/2025 11:13:15 01/14/20 25 01/06/2025 US, obste tric, follo w-up No observ ation record ed. [email or web address] [facility] [address] [place], [address], 01/14/2025 12:03:40 Result Notes None recorded. Problems Name Problem SNOMED Code Status Onset Date Resolution Date Notes Provider Name and Address Organization Details Recorded Time Acute otitis externa of right ear [id number] Amparo MATA, [address], [address] , [facility] 5 12:13:28 Hearing loss 77214072 Amparo MATA, [address], [address] , [facility] 5 12:13:28 Past pregnanc y history of section 450505650 Amparo MATA, [address], [address] , [facility] 5 12:13:28 Bleeding from female genital tract during pregnanc y 94502518919 533999 Amparo MATA [address], [address] , [facility] 5 12:13:28 Hyperpro lactinem ia 659924625 Amparo MATA [address], [address] , [facility] 5 12:13:29 Bleeding from nose 310844471 Amparo MATA, [address] [address] , [facility] 5 12:13:29 Recurren t bleeding of nose Amparo MATA, [address] [address] , [facility] 5 12:13:29 Cervicog enic headache 135430112 Amparo MATA, [address] [address] , [facility] 5 12:13:29 Right sided abdomina l pain 103955439 Amparo MATA, [address] [address] , [facility] 5 12:13:29 Patient encounte r status 477277068 Amparo MATA, [address] [address] , [facility] 5 12:13:29 Bronchit is 69137521 Amparo MATA, [address] [address] , [facility] 5 12:13:29 Strain of neck muscle 972782691 Amparo MATA, [address] [address] , [facility] 5 12:13:29 Chronic sinusiti s 62974844 Amparo MATA, [address] [address] , [facility] 5 12:13:29 Hypothyr oidism 23395888 Amparo MATA, [address], [address] , [facility] 5 12:13:29 Obesity 322465256 Amparo MATA, [address], [address] , [facility] 5 12:13:29 Refracto ry migraine without aura 899139808 Amparo MATA, [address], [address] , [facility] 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 5 12:13:29 Oligomen orrhea 14139566 Amparo MATA, [address], [address] , [facility] 5 12:13:29 Chronic otitis externa 20026456 Amparo MATA, [address], [address] , [facility] 5 12:13:29 Subchori onic hematoma 182490327 Amparo MATA, [address], [address] , [facility] 5 12:13:29 Allergic rhinitis 77379889 Amparo MATA, [address] , [facility] 5 12:13:29 Congenit al deviatio n of nasal septum 62625335 Active MADINA MATA, [address], [address] , [facility] 5 12:13:29 Female infertil ity 2358288 Active MADINA MATA, [address], [address] , [facility] 5 12:13:29 Posterio r rhinorrh ea 32870689 Active MADINA MATA, [address], [address] , [facility] 5 12:13:29 Pain in face 91812022 Active MADINA MATA, [address], [address] , [facility] 5 12:13:29 History of cholecys tectomy 521597717 Active 2021 MADINA MATA, [address], [address] , [facility] 5 12:13:29 Family history of malignan t neoplasm of digestiv e organ 970535323 Active 2021 FAMILY HISTORY OF COLON CANCER IN MOTHER; Recorded 03/23/20 22 1:40PM by Homa Gaines CMT, Office Visit; Promoted ; acuity set as *; Not Available [employer] 3 03:07:44 Polycyst ic ovary syndrome 841420026 Active 2022 PCOS (POLYCYS TIC OVARIAN SYNDROME ); Recorded 06/02/19 23 1:39PM by Homa Gaines CMT, Historic al Summary; Promoted ; acuity set as *; Not Available [employer] 3 03:07:43 Chiari malforma tion type I 533869385 Active 2024 MADINA MATA, [address], [address] , [facility] 5 12:13:29 Uterine leiomyom a 03620981 Active 2024 MADINA MATA, [address], [address] , [facility] 5 12:13:29 Pregnanc y 06907976 Completed 202402/23/2025 ANISH STERLING [facility] 5 16:50:49 Maternal obesity complica ting pregnanc y, childbir th and the puerperi um, antepart um 19083691911 7 Active 2024 Romel Pan MD [address] [place] [address], [address] , [facility] 5 14:58:39 Uterine size for terrell fortune ncy 508684251 Active 2024 Romel Pan MD [address] [place] [address], [address] , [facility] 5 15:01:50 Seasonal allergy 543482061 Active 2024 Romel Pan MD [address] [place] [address], [address] , [facility] 5 12:46:17 Notes:Some problems listed i n Document: #[id number] could not be added to this patient's chart. Please review this document and add these problems to the patient's chart manually as needed. Problem Notes None recorded. Procedures Surgical History Date Name Laterality Status Provider Name and Address Organization Details Recorded Time 025 ligation of fallopian tube completed [facility], See 02/23/2025 16:52:51 025 section completed [facility], See 02/23/2025 16:52:34 025 Toenail avulsion completed HENNA BELLO PA-C [address] [place] [address], [address], [facility], See 11/10/2024 14:04:46 025 Date of Last Pap Smear completed [facility], See 01/06/2025 18:30:05 025 liquid based cervical cytology screening completed [facility], See 01/06/2025 18:30:38 024 US scan of abdomen and pelvis completed [facility], See 09/25/2023 18:31:26 023 MRI of right shoulder completed [facility], See 09/07/2022 12:50:22 [facility]/23/2025 16:53:48 endoscopy and biopsy of upper gastrointestinal tract completed [facility], See 02/23/2025 16:54:16 dilation and curettage completed [facility], See 02/23/2025 16:54:53 [facility] nose [facility]/23/2025 16:56:09 [facility]23 10:37:49 Tonsillectomy completed HOMA GAINES [facility] 02/22/2023 10:38:10 Imaging Results None recorded. Procedure Notes None recorded. Medical Equipment None Reported. Allergies Allergen ID Allergen Name Allergen Category Reaction Reaction Severity Criticality Documentation Date Start Date Code Code System Note Provider Name and Address Organization Details Recorded Time 43086 codeine phosphate medicatio n itching Not available Not available 11/11/2022 2672 RxNorm React ion: Itchi ng; Comme nt: Recor ded 03/23 1:40P M by Monica olvera, CMT, Offic e Visit ; Promo veronica; Lesly velazquez ce: *; Reaso n: Drug aller gy; ; HOMA GAINES [facility] 3 10:33:25 11681 codeine medicatio n Not available Not available Not available 11/11/20222024 2670 RxNorm Other react ions and sever ities : 'Skin pruri tus'. MADINA MATA, [facility] [address] [place], [address], [facility] 5 12:13:16 71949 oxycodone medicatio n Not available Not available Not available 11/12/20242024 7804 RxNorm MADINA MATA, [facility] [address] [place], [address], [facility] 5 12:13:16 Medications Name Sig Start [...] fluoxetin e every other day 02/22 completed 16074; Recorded 08/18/19 21 7:47AM by Alejandrina Rocha LPN (Authori tonya through YASMINE Mendoza), Office Visit; Refill Quantity : 90; Capsule; Not Available Not Available Not Available progester one daily 02/22 completed 19443; Recorded 02/17/20 22 2:01PM by Homa Gaines [...] Last Updated DateTime 166.37 cm 49.8 kg/m2 033262. 78 g 99 % 96 /min 18 /min 98.5 [degF] 130/74 mm[Hg] ANISH MOREIRA [facility] 12:28:03 Social History Question Answer Notes LastModified by Influx ion Details LastModified Time Tobacco Smoking Status Never Smoker HOMA harris [facility] 02/22/2023 10:36:25 Which Illicit Or Recreational Drugs Have You Used? Occasional Marijuana [email or web address] Information not available 02/22/2023 What Was The Date Of Your Most Recent Tobacco Screening? 11/07/2024 [email or web address] Information not available 11/07/2024 What Is Your Relationship Status? [email or web address] Information not available 02/22/2023 Sex: Unknown Functional Status Question Answer Note LastModified by Organizat ion Details LastModified Time Do you use any illicit or recreational drugs? Yes Information not available 02/22/2023 What is your level of alcohol consumption? Occasional [email or web address] Information not available 08/20/2023 Are you currently employed? Yes Information not available 02/22/2023 Are you able to care for yourself independently? Yes [email or web address] Information not available 02/22/2023 Mental Status None recorded. Family History Relationship Description Onset Age of this Age Resolved Age Notes LastModified by Organization Details LastModified Time Mother Malignant neoplasm of colon deceas ed age 58 [email or web address] Not available 02/22/2023 10:34:40 Father Type 2 diabetes mellitus [email or web address] Not available 02/22 10:34:58 Medical History Condition Response Coronary Artery Disease N Other N Gout N Kidney Stones N Blood Diseases N Hyperthyroidism N Breast Cancer N Blood Transfusion N Depression N Hypothyroidism Y Lung Disease N COPD N Defects or Inherited Disease N Developmental or Behavioral Disorders N Breast Problem N Difficulty Swallowing N [...] Immunizations Vaccine Type Date Status Note Provider Arsen berg and Address Organization Details Recorded Time Influenza, split virus, trivalent, preservative 6 completed MADINA MATA, [facility] [address] [place], [address], [facility], See 02/22/2023 11:12:44 Hib, unspecified formulation 0 completed MADINA ESPERANZA, INTRAVENOUS THERAPY NURSE [address] [place], [address], [facility] 02/22/2023 11:12:44 MMR 0 completed MADINA VARNERTES, INTRAVENOUS THERAPY NURSE [address] [place], [address], [facility] 02/22/2023 11:12:44 MMR 0 completed MADINA MATA, INTRAVENOUS THERAPY NURSE [address] [place], [address], [facility] 02/22/2023 11:12:44 Tdap 4 completed MADINA MATA, INTRAVENOUS THERAPY NURSE [address] [place], [address], [facility] 02/22/2023 11:12:44 Hep B, unspecified formulation 8 completed MADINA MATA, [facility] [address] [place], [address], [facility] 02/22/2023 11:12:44 polio, unspecified formulation 8 completed MADINA MATA, [facility] [address] [place], [address], [facility] 02/22/2023 11:12:44 polio, unspecified formulation 2 completed MADINA MATA, INTRAVENOUS THERAPY NURSE [address] [place], [address], [facility] 02/22/2023 11:12:44 polio, unspecified formulation 0 completed MADINA MATA, [facility] [address] [place], [address], [facility] 02/22/2023 11:12:44 polio, unspecified formulation 3 completed MADINA MATA, [facility] [address] [place], [address], [facility], [facility] 02/22/2023 11:12:44 Hep B, adult 6 completed ANISH harris, [facility] 12/24/2024 14:12:25 Hep B, adult 4 completed ANISH harris, [facility] 12/24/2024 14:12:25 DTaP 8 completed MADINA MATA, [facility] [address] [place], [address], [facility], [facility] 02/22/2023 11:12:44 DTaP 2 completed MADINA MATA, [facility] [address] [place], [address], [facility], [facility] 02/22/2023 11:12:44 DTaP 0 completed MADINA MATA, [facility] [address] [place], [address], [facility], [facility] 02/22/2023 11:12:44 DTaP 3 completed MADINA MATA, [facility] [address] [place], [address], [facility], [facility] 02/22/2023 11:12:44 Tdap 4 completed Not Available [facility] 02/23/2025 16:32:48 Hep A, adult 4 completed ANISH harris, [facility], See 12/24/2024 14:12:25 Hep A, adult 4 completed Not Available [facility] 02/23/2025 16:32:48 RSV, bivalent, protein subunit RSVpreF, diluent reconstituted, 0.5 mL, PF 5 completed Not Available [facility] 02/23/2025 16:32:48 Tdap 5 completed Not Available [facility] 02/23/2025 16:32:48 Past Encounters Encounter ID Performer Location Encounter Start Date Encounter Closed Date Diagnosis/Indication Diagnosis SNOMED-CT Code Diagnosis ICD10 Code Diagnosis IMO Codes Diagnosis Note [id number] Romel Pan MD [facility] [address] [place] [address] 12/24/2024 13:57:44 12/24/2024 15:25:56 Multigravida 413355975 Z34.83 26179320 Gestation period, 31 weeks 06337775 Z3A.31 0126122 History of Disorder 3128 54281 Z87.59 34555409 Maternal o besity complicating , childbirth and the puerperium, antepartum 6638130621 07 O99.213 6147258918 Uterine si ze for dates discrepancy 163296822 O26.235 9748540 [id number] Romel Pan MD [facility] ([facility]) [address] [place] [address] 01/06/2025 12:03:39 01/07/2025 12:11:14 [id number] Romel Pan MD [facility] [address] [place] [address] 01/06/2025 14:05:06 01/19/2025 08:35:15 Maternal obesity complicating , childbirth and the puerperium, antepartum 9138843993 07 O99.213 1409252903 13640882 Z34.9 0 Gestation period, 33 weeks 66110242 Z3A.33 5372723 [id number] Romel Pan MD [facility] ([facility]) [address] [place] [address] 01/23/2025 11:22:39 01/23/2025 13:31:15 99298004 Z34.90 Gestation period, 35 weeks 40551292 Z3A.35 7100903 Seasonal allergy 9621291 04 J30.2 00877 Health Concerns Section Related Observation LastModified by Organization Detai ls LastModified Time None Recorded Concern Status LastModified by Organization Details LastModified Time None Recorded Payers Encounter Date Sequence Insurance Name Policy Number Policy Peterson Covered Member ID Peterson Member ID Guarantor Name 01/23/2025 1 [employer] (MEDICAID HMO) Shila Tarango [id number] Shila Tarango Notes Date Note Type Note Provider Name and Address Organization Details Recorded Time 01/23/2025 text/html jr ob routineRep orted by PatientHPIFor associated symptoms, patient reportsnausea,headache , andbreathlessness (with exertion)but reportsno abdominal pain,no cramping,no contractions,normal movement,no bleeding,no vaginal discharge,no vaginal/vulvar itching or irritation,no dysuria,no frequency,no urgency,no hematuria,no fever,no emesis,no constipation,no diarrhea/loose stool,no edema,no visual changes, andno dizziness.heartburn intermittent,Pt denies any alcohol, tobacco and has not had any marijuana since finding out she was ROS as noted in the HPI [facility] Pan MD [address] [place] [address], [address], [facility] 01/23/2025 12:48:43 OBGyn Episode Ob Episode Information Episode Created Date Number of Fetuses Patient Bloodtype Patient rh Status Prepregnancy Weight lbs Domestic Partner Domestic Partner Phone Father Name Bricklayer Status 12/25/19 25 1 A Positive Benigno [...] Weight in lbs Pre/Post Dialysis Refused Weight 295.28069633784 BP Diastolic BP Location Tested BP Systolic [...] Weight in lbs Pre/Post Dialysis Refused Weight 301.641121385440 BP Diastolic BP Location Tested BP Systolic [...] Weight in lbs Pre/Post Dialysis Refused Weight 304.401491592456 BP Diastolic BP Location Tested BP Systolic [...] Weight in lbs Pre/Post Dialysis Refused Weight 309.452657760389 BP Diastolic BP Location Tested BP Systolic [...] Weight in lbs Pre/Post Dialysis Refused Weight 306.267312366588 BP Diastolic BP Location Tested BP Systolic [...] Weight in lbs Pre/Post Dialysis Refused Weight 308.469317635050 BP Diastolic BP Location Tested BP Systolic BP Type 74 120 sitting Fetus Heart Rate Present A 136 Present Fetus Movement A Yes Comments pelvic/vaginal pressure, hea dache, heartburn, comstipation Flowsheet Date 02/23/2025 Hartman Score Blood Edema Fundus Height Fundus Units Glucose Ketones Leukocytes Nitrite Labor Signs Protein Cervic Dilation Cervic Effacement Cervic Station Type Weight in lbs Pre/Post Dialysis Refused Weight 311.136967460800 BP Diastolic BP Location Tested BP Systolic BP Type 72 124 sitting Fetus Heart Rate Present Fetus Movement Comments Menstrual History Last Menstrual Date Menses Monthly On Bcp Conception Prior Menses Frequency Hcg Plus Date Menarche Onset Age Genetic Screening And Infection History Question Response Note Patient's Age Will Be 35 Years Or Older At Estim ated Date of Delivery true Thalassemia (Yakut, Ugandan, Mediterranean, Or Background): MCV < 80 false Neural Tube Defect (Meningomyelocele, Spina Bifi da, Or Anencephaly) false Congenital Heart Defect false Down Syndrome false Kasi-Sachs (eg, Yazidism, Cajun, Tamazight-Eden) f alse Annmarie Disease false Sickle Cell Disease Or Trait () false Hemophilia Or Other Blood Disorders false Muscular Dystrophy false Cystic Fibrosis false Maday's Chorea false Intellectual Disability/Autism false If Yes, [...]
--- OUTSIDE RECORDS SUMMARY | 2025-04-13 23:30 | XMS_ITS | Continuity of Care Document ---
Author Organization YULIYA Marques [facility] Lisa, LNetta, [facility] ([facility]) Address [address] [place] [address] Care Team Providers Care Fire Hazard Inspector Name Role Phone ESPERANZAMADINA Primary Care Provider Unavailabl e Assessment No assessment recorded. Plan of Treatment Reminders Order Date Submit Date Provider Last Modified By Organization Details Last Modified Time Details Appointments None record ed. Lab CT + NG + TV, DNA, urine/ swab 025 01/30/20 [employer] [facility], [address] [facility] [address], [address] [facility], [address], 11:23:54 Referral None record ed. Procedures None record ed. Surgeries None record ed. Imaging None record ed. Medication Orders None record ed. Patient TargetsNo targets recorded. Patient InstructionsNo instructions recorded. Reason for Referral None Reported. Results Created Date Observation Date Name Description Value Unit Range Abnormal Flag Note LastModifiedBy Organization Detail LastModifiedTime 01/24/20 25 01/26/2025 STREP TOCOC CUS, GROUP B CULTU RE streptococcu s, group B culture SEE NOTE STREP TOCOC CUS, GROUP B CULTU RE Micro Numbe r: [id number] Test Statu s: Final Speci men Sourc e: Vagin al/an orect al Speci men Quali ty: Adequ ate Resul t: No group B Strep tococ cus isola veronica Note per CDC guide lines optim al recov marlin is achie lisa by swabb ing both the lower vagin a and rectu m (thro ugh the anal sphin cter) . Not Available [facility] [place] [address] [place], [address], 01/26/2025 11:13:15 01/30/2001/30/2025 CHLAM YDIA/ N.HILDA ORRHO EAE AND T. VAGIN MAG RNA, QL TMA chlamydia trachomatis RNA, tma, urogenital NOT DETECT ED not detect ed normal Not Available [facility] [address], [address], 01/30/2025 11:23:54 01/30/2001/30/2025 CHLAM YDIA/ N.HILDA ORRHO EAE AND T. VAGIN MAG RNA, QL TMA neisseria gonorrhoeae RNA, tma, urogenital NOT DETECT ED not detect ed normal Not Available [facility] [address], [address], 01/30/2025 11:23:54 01/30/2001/30/2025 CHLAM YDIA/ N.HILDA ORRHO [...] e refer to https ://ed ucati on.qu jerrydi BMdr. com/f aq/FA Q154 (This link is being provi ded for infor sarah beth rosa/ jeanna martinez l purpo ses only. ) Not Available [facility] [address], [address], 01/30/2025 11:23:54 01/30/2001/30/2025 CHLAM YDIA/ N.HILDA ORRHO EAE AND T. VAGIN MAG RNA, QL TMA trichomonas vaginalis RNA, ql tma NOT DETECT ED not detect ed normal For addit ional infor rodrick portillo e refer to http: //esequiel young stdia gnost ics.c om/ faq/T damir yeung tma (This link is being provi ded for infor sarah beth ann/ educina martinez l purpo ses only. ) Not Available [facility] [address], [place], [address], 01/30/2025 11:23:54 01/14/20 25 01/06/2025 US, obste tric, follo w-up No observ ation record ed. [email or web address] [address], [address], 01/14/2025 12:03:40 Result Notes None recorded. Problems Name Problem SNOMED Code Status Onset Date Resolution Date Notes Provider Name and Address Organization Details Recorded Time Acute otitis externa of right ear [id number] Amparo MATA, [address], [address] , [facility] 5 12:13:28 Hearing loss 33756818 Amparo MATA, [address], [address] , [facility] 5 12:13:28 Past pregnanc y history of section 612128051 Amparo MATA, [address], [address] , [facility] 5 12:13:28 Bleeding from female genital tract during pregnanc y 34330143971 651305 Amparo MATA, [address], [address] , [facility] 5 12:13:28 Hyperpro lactinem ia 898069629 Amparo MATA, [address], [address] , [facility] 5 12:13:29 Bleeding from nose 846760347 Amparo MATA, [address], , [facility] 5 12:13:29 Recurren t bleeding of nose Amparo MATA, [address], , [facility] 5 12:13:29 Cervicog enic headache 296525618 Amparo MATA, [address], , [facility] 5 12:13:29 Right sided abdomina l pain [id number] Amparo MATA, [address], , [facility] 5 12:13:29 Patient encounte r status 289449350 Amparo MATA, [address], [address] , [facility] 5 12:13:29 Bronchit is [id number] Amparo MATA, [address], , [facility] 5 12:13:29 Strain of neck muscle 532234077 Amparo MATA, [address], , [facility] 5 12:13:29 Chronic sinusiti s 01881558 Active MADINA MATA, [address], [address] , [facility] 5 12:13:29 Hypothyr oidism 91923475 Active MADINA MATA, [address], [address] , [facility] 5 12:13:29 Obesity 607853600 Active MADINA MATA, [address], [address] , [facility] 5 12:13:29 Refracto ry migraine without aura 636629846 Active MADINA MATA, [address], [address] , [facility] 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 5 12:13:29 Oligomen orrhea 44229857 Amparo MATA, [address], [address] , [facility] 5 12:13:29 Chronic otitis externa 32885597 Amparo MATA, [address], [address] , [facility] 5 12:13:29 Subchori onic hematoma 157781484 Active MADINA MATA, [address], [address] , [facility] 5 12:13:29 Allergic rhinitis 52776866 [facility] MADINA MATA, [address], [address] [place] [address] , [facility] 5 12:13:29 Congenit al deviatio n of nasal septum 64833013 [facility] MADINA MATA, [address], [address] [place] [address] , [facility] 5 12:13:29 Female infertil ity 1558460 [facility] MADINA MATA, [address], [address] [place] [address] , [facility] 5 12:13:29 Posterio r rhinorrh ea [id number] [facility] MADINA MATA, [place] [address] , [facility] 5 12:13:29 Pain in face 44578238 [facility] MADINA MATA, [place] [address] , [facility] 5 12:13:29 History of cholecys tectomy 019414261 Active 2021 MADINA MATA, [address], [address] [place] [address] , [facility] 5 12:13:29 Family history of malignan t neoplasm of digestiv e organ 041527154 Active 2021 FAMILY HISTORY OF COLON CANCER IN MOTHER; Recorded 03/23/20 22 1:40PM by Homa Tinoco CMT, Office Visit; Promoted ; acuity set as *; Not Available [facility] 3 03:07:44 Polycyst ic ovary syndrome 084859807 Active 2022 PCOS (POLYCYS TIC OVARIAN SYNDROME ); Recorded 06/02/19 1:39PM by Homa Tinoco CMT, Historic al Summary; Promoted ; acuity set as *; Not Available [facility] 3 03:07:43 Chiari malforma tion type I 903709558 Active 2024 MADINA MATA, [address], [address] , [facility] 5 12:13:29 Uterine leiomyom a 16688214 Active 2024 MADINA MATA, [address], [address] , [facility] 5 12:13:29 Pregnanc y 67570596 Completed 202402/23/2025 ANISH [facility], [facility] 5 16:50:49 Maternal obesity complica ting pregnanc y, childbir th and the puerperi um, antepart um 03020452692 7 Active 2024 Romel Pan MD [address] [place], [place] [address] , [facility] 5 14:58:39 Uterine size for dates discrepa ncy 377310513 Active 2024 Romel Pan MD [address] [place], [place] [address] , [facility] 5 15:01:50 Seasonal allergy 954241353 Active 2024 Romel Pan MD [address] [place], [place] [address] , [facility] 5 12:46:17 Notes:Some problems listed i n Document: #[id number] could not be added to this patient's chart. Please review this document and add these problems to the patient's chart manually as needed. Problem Notes None recorded. Procedures Surgical History Date Name Laterality Status Provider Name and Address Organization Details Recorded Time 025 [facility] fall[facility] tube [facility] 02/23/2025 16:52:51 025 section completed [facility] 02/23/2025 16:52:34 025 Toenail avulsion completed HENNA BELLO PA-C [address] [place] [address], [address], [facility] 11/10/2024 14:04:46 025 Date of [facility] 18:30:05 025 liquid based cervical cytology screening [facility]25 18:30:38 024 [facility] 18:31:26 023 [facility]/07[facility] 12:50:22 colonoscopy [facility] 02/23/2025 16:53:48 endoscopy and biopsy of upper gastrointestinal tract completed [facility] 02/23/2025 16:54:16 dilation and curettage completed [facility] 02/23/2025 16:54:53 repair of nose completed [facility] 02/23/2025 16:56:09 Cholecystectomy completed [facility]OMA LIANA [facility] 02/22/2023 10:37:49 Tonsillectomy completed HOMA LIANA [facility] 02/22/2023 10:38:10 Imaging Results None recorded. Procedure Notes None recorded. Medical Equipment None Reported. Allergies Allergen ID Allergen Name Allergen Category Reaction Reaction Severity Criticality Documentation Date Start Date Code Code System Note Provider Name and Address Organization Details Recorded Time 26607 codeine phosphate medicatio n itching Not available Not available 11/11/2022 2672 RxNorm React ion: Itchi ng; Comme nt: Recor ded 03/23 1:40P M by Monica olvera CMT, Offic e Visit ; Promo veronica; Lesly velazquez ce: *; Reaso n: Drug aller gy; ; HOMA LIANA [facility] 3 10:33:25 50650 codeine medicatio n Not available Not available Not available 11/11/20222024 2670 RxNorm Other react ions and sever ities : 'Skin pruri tus'. MADINA MATA, [address], [address], [facility] 5 12:13:16 37415 oxycodone medicatio n Not available Not available Not available 11/12/20242024 7804 RxNorm MADINA MATA, [address], [address], [facility] 5 12:13:16 Medications Name Sig Start [...] fluoxetin e every other day 02/22 completed 11532; Recorded 08/18/19 21 7:47AM by Liana Rocha LPN (Authori tonya through YASMINE Mendoza), Office Visit; Refill Quantity : 90; Capsule; Not Available Not Available Not Available progester one daily 02/22 completed 79546; Recorded 02/17/20 22 2:01PM by Homa Tinoco CMT (Authori tonya through YASMINE Mendoza), Refill Request; Refill Quantity : 30; Capsule; Not Available Not Available Not Available 11/12 completed Not Available Not Available Not Available ondansetr on daily as needed 02/22 completed Recorded 03/23/20 22 1:40PM by Homa Tinoco CMT, Office Visit; Refill Quantity : 10; Tablet; Not Available Not Available Not Available multivita min 1 daily 11/07 completed Not Available Not Available Not Available B-12 Plus 11/12 completed Not Available Not Available Not Available butalbita l-acetami nophen-ca ffeine 50 mg-300 mg-40 mg capsule 1 capsule by oral route. 2024 active Not Available Not Available Not Anny clayton pyridoxin e (vitamin B6) 50 mg capsule [...] Last Updated DateTime 166.37 cm 50.7 kg/m2 611877. 84 g 99 % 92 /min 18 /min 98 [degF] 136/76 mm[Hg] ANISH MOREIRA [facility] 10:51:22 Social History Question Answer Notes LastModified by Organizat ion Details LastModified Time Tobacco Smoking Status Never Smoker [facility] 02/22/2023 10:36:25 Which Illicit Or Recreational Drugs Have You Used? Occasional Marijuana [email or web address] Information not available 02/22/2023 What Was The Date Of Your Most Recent Tobacco Screening? 11/07/2024 [email or web address] Information not available 11/07/2024 What Is Your Relationship Status? [email or web address] Information not available 02/22/2023 Sex: Unknown Functional Status Question Answer Note LastModified by Organizat ion Details LastModified Time Do you use any illicit or recreational drugs? Yes [email or web address] Information not available 02/22/2023 What is your level of alcohol consumption? Occasional [email or web address] Information not available 08/20/2023 Are you currently employed? Yes [email or web address] Information not available 02/22/2023 Are you able to care for yourself independently? Yes [email or web address] Information not available 02/22/2023 Mental Status None recorded. Family History Relationship Description Onset Age of this Age Resolved Age Notes LastModified by Organization Details LastModified Time Mother Malignant neoplasm of colon deceas ed age 58 [email or web address] Not available 02/22/2023 10:34:40 Father Type 2 diabetes mellitus [email or web address] Not available 02/22 10:34:58 Medical History Condition [...] virus, trivalent, preservative 6 completed MADINA MATA, [facility] [address] [place], [address], [facility] 02/22/2023 11:12:44 Hib, unspecified formulation 0 completed MADINA MATA, [facility] [address] [place], [address], [facility] 02/22/2023 11:12:44 MMR 0 completed MADINASho VARNERESPERANZA, [address], [address], [facility] 02/22/2023 11:12:44 MMR 0 completed MADINASho VARNERESPERANZA, [facility] [address] [place] [address], [address], [facility] 02/22/2023 11:12:44 Tdap 4 completed MADINASho VARNERESPERANZA, [address], [address], [facility] 02/22/2023 11:12:44 Hep B, unspecified formulation 8 completed MADINASho MATA, [facility] [address] [place] [address], [address], [facility] 02/22/2023 11:12:44 polio, unspecified formulation 8 completed MADINASho VARNERESPERANZA, [facility] [address] [place] [address], [address], [facility] 02/22/2023 11:12:44 polio, unspecified formulation 2 completed MADINASho VARNERESPERANZA, [facility] [address] [place] [address], [address], [facility] 02/22/2023 11:12:44 polio, unspecified formulation 0 completed MADINA MATA, [address], [address], [facility] 02/22/2023 11:12:44 polio, unspecified formulation 3 completed MADINA MATA, [address], [address], [facility] 02/22/2023 11:12:44 Hep B, adult 6 completed TREBA NEUSCHWANDER null, [facility] 12/24/2024 14:12:25 Hep B, adult 4 completed TREBA NEUSCHWANDER null, [facility] 12/24/2024 14:12:25 DTaP 8 completed MADINA MATA, [address], [address], [facility] 02/22/2023 11:12:44 DTaP 2 completed MADINA MATA, [address], [address], [facility] 02/22/2023 11:12:44 DTaP 0 completed MADINA MATA, [address], [address], [facility] 02/22/2023 11:12:44 DTaP 3 completed MADINA MATA, [address], [address], [facility] 02/22/2023 11:12:44 Tdap 4 completed Not Available [facility] 02/23/2025 16:32:48 Hep A, adult 4 completed TREBA NEUSCHWANDER null, [place] [facility], See 12/24/2024 14:12:25 Hep A, adult 4 completed Not Available [facility] 02/23/2025 16:32:48 RSV, bivalent, protein subunit RSVpreF, diluent reconstituted, 0.5 mL, PF 5 completed Not Available [facility] 02/23/2025 16:32:48 Tdap 5 completed Not Available [facility] 02/23/2025 16:32:48 Past Encounters Encounter ID Performer Location Encounter Start Date Encounter Closed Date Diagnosis/Indication Diagnosis SNOMED-CT Code Diagnosis ICD10 Code Diagnosis IMO Codes Diagnosis Note [id number] Romel Pan MD [facility] ([facility]) [address] [place] [address] 01/06/2025 12:03:39 01/07/2025 12:11:14 [id number] Romle Pan MD [facility] ([facility]) [address] [place] [address] 01/06/2025 14:05:06 01/19/2025 08:35:15 Maternal obesity complicating , childbirth and the puerperium, antepartum 5478274555 07 O99.213 6929309630 91968963 Z34.9 0 Gestation period, 33 weeks 52790380 Z3A.33 1086247 [id number] Romel Pan MD [facility] ([facility]) [address] [place] [address] 01/23/2025 11:22:39 01/23/2025 13:31:15 [id number] Z34.90 Gestation period, 35 weeks 36281820 Z3A.35 6795664 Seasonal allergy 7180898 04 J30.2 03891 [id number] Romel Pan MD [facility] ([facility]) [address] [place] [address] 01/29/2025 09:49:03 01/29/2025 11:19:50 81223155 Z34.90 Gestation period, 36 weeks 34223952 Z3A.36 3457068 Health Concerns Section Related Observation LastModified by Organization Detai ls LastModified Time None Recorded Concern Status LastModified by Organization Details LastModified Time None Recorded Payers Encounter Date Sequence Insurance Name Policy Number Policy Peterson Covered Member ID Peterson Member ID Guarantor Name 01/29/2025 1 [facility] (MEDICAID HMO) Shila Tarango [id number] Shila Tarango Notes Date Note Type Note Provider Name and Address Organization Details Recorded Time 01/30/20 25 text/ht ml jr ob routineReported by PatientHPIFor associated symptoms, patient reportsnauseaandbreathlessness (with exertion)but reportsno abdominal pain,no cramping,no contractions,normal movement,no bleeding,no vaginal discharge,no vaginal/vulvar itching or irritation,no dysuria,no frequency,no urgency,no hematuria,no fever,no emesis,no constipation,no diarrhea/loose stool,no edema,no visual changes,no headache, andno dizziness.heartburn intermittent,Pt denies any alcohol, tobacco and has not had any marijuana since finding out she was ROS as noted in the HPI Transfer from [facility] and Neil Pan MD [address] [place] [address], [phone], [facility] 01/29/2025 11:18:05 OBGyn Episode Ob Episode Information Episode Created Date Number of Fetuses Patient Bloodtype Patient rh Status Prepregnancy Weight lbs Domestic Partner Domestic Partner Phone Father Name Continuous Wave Operator Status 12/25/19 1 A Positive Benigno CLOSED Fetus Data [...] Latest Days Gestation 0 02/23/20 25 0 Pre- Flowsheet Flowsheet Date 12/24/2024 Hartman Score Blood Edema Fundus Height Fundus Units Glucose Ketones Leukocytes Nitrite Labor Signs Protein Cervic Dilation Cervic Effacement Cervic Station 36 cm none none Negative trace Type Weight in lbs Pre/Post Dialysis Refused Weight 295.43559644423 BP Diastolic BP Location Tested BP Systolic [...] Weight in lbs Pre/Post Dialysis Refused Weight 301.070984867887 BP Diastolic BP Location Tested BP Systolic [...] Weight in lbs Pre/Post Dialysis Refused Weight 304.514965337429 BP Diastolic BP Location Tested BP Systolic [...] Weight in lbs Pre/Post Dialysis Refused Weight 309.948760820928 BP Diastolic BP Location Tested BP Systolic [...] Weight in lbs Pre/Post Dialysis Refused Weight 306.401499443193 BP Diastolic BP Location Tested BP Systolic [...] Weight in lbs Pre/Post Dialysis Refused Weight 308.616886905147 BP Diastolic BP Location Tested BP Systolic BP Type 74 120 sitting Fetus Heart Rate Present A 136 Present Fetus Movement A Yes Comments pelvic/vaginal pressure, hea dache, heartburn, comstipation Flowsheet Date 02/23/2025 Hartman Score Blood Edema Fundus Height Fundus Units Glucose Ketones Leukocytes Nitrite Labor Signs Protein Cervic Dilation Cervic Effacement Cervic Station Type Weight in lbs Pre/Post Dialysis Refused Weight 311.924170815132 BP Diastolic BP Location Tested BP Systolic BP Type 72 124 sitting Fetus Heart Rate Present Fetus Movement Comments Menstrual History Last Menstrual Date Menses Monthly On Bcp Conception Prior Menses Frequency Hcg Plus Date Menarche Onset Age Genetic Screening And Infection History Question Response Note Patient's Age Will Be 35 Years Or Older At Estim ated Date of Delivery true Thalassemia (Hebrew, Greenlandic, Mediterranean, Or Background): MCV < 80 false Neural Tube Defect (Meningomyelocele, Spina Bifi da, Or Anencephaly) false Congenital Heart Defect false Down Syndrome false Kasi-Sachs (eg, Congregation, Cajun, Zimbabwean-Ellsworth) f alse Annmarie Disease false Sickle Cell [...]
--- OUTSIDE RECORDS SUMMARY | 2025-04-13 23:30 | XMS_ITS | Data Portability ---
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 [email or web address] Not available 02/09/2025 16:10:02 Plan of Treatment Reminders Order Date Submit Date Provider Last Modified By Organization Details Last Modified Time Details Appointments None recorded. Lab prolactin, serum 2024 [facility], [address] [place] [address], [address], [place], [place], [address], 06:56:30 CT + NG + TV, DNA, urine/swab 2024 025 [facility], [address] [place] [address] 248, [address] Kra[address], Jeth[place], YULIYA, [address], 11:23:54 streptococc us group B, culture, unspecified specimen 2024 025 [facility], [address] [place] [address] 248, [address] Kra[address], Jethro, YULIYA, [address], 11:13:15 Referral None recorded. Procedures None recorded. Surgeries None recorded. Imaging None recorded. Medication Orders montelukast 10 mg tablet 2024 025 [facility] [place], [address] [place], [address], 17:48:46 Patient TargetsNo targets recorded. Patient InstructionsNo instructions recorded. Reason for Referral None Reported. Results Created Date Observation Date Name Description Value Unit Range Abnormal Flag Note LastModifiedBy Organization Detail LastModifiedTime 01/24/2001/26/2025 STREP TOCOC CUS, GROUP B CULTU RE streptococcu s, group B culture SEE NOTE STREP TOCOC CUS, GROUP B CULTU RE Micro Numbe r: [id number] Test Statu s: Final Speci men Sourc e: Vagin al/an orect al Speci men Quali ty: Adequ ate Resul t: No group B Strep tococ cus isola veronica Note per CDC guide lines optim al recov marlin is achie lisa by swabb ing both the lower vagin a and rectu m (thro ugh the anal sphin cter) . Not Available [address] [place], [address], 01/26/2025 11:13:15 01/30/2001/30/2025 CHLAM YDIA/ N.HILDA ORRHO EAE AND T. VAGIN MAG RNA, QL TMA chlamydia trachomatis RNA, tma, urogenital NOT DETECT ED not detect ed normal Not Available [address], [address], 01/30/2025 11:23:54 01/30/2001/30/2025 CHLAM YDIA/ N.HILDA ORRHO EAE AND T. VAGIN MAG RNA, QL TMA neisseria gonorrhoeae RNA, tma, urogenital NOT DETECT ED not detect ed normal Not Available [facility] [address] [place], [address], 01/30/2025 11:23:54 01/30/2001/30/2025 CHLAM YDIA/ N.HILDA ORRHO [...] e refer to https ://ed ucati on.qu estdi PacketSleds. com/f aq/FA Q154 (This link is being provi ded for infor matio n/ educa michelle l purpo ses only. ) Not Available [employer] [address], [address], 01/30/2025 11:23:54 01/30/2001/30/2025 CHLAM YDIA/ N.HILDA ORRHO EAE AND T. VAGIN MAG RNA, QL TMA trichomonas vaginalis RNA, ql tma NOT DETECT ED not detect ed normal For addit ional infor rodrick portillo e refer to http: //[facility] n.que stdia gnost ics.c om/ faq/T damir yeung tma (This link is being provi ded for infor matio nal/ educa michelle l purpo ses only. ) Not Available [employer] [address] [address] [place], [address], 01/30/2025 11:23:54 02/10/2002/10/2025 PROLA CTIN prolactin 153.8 NG/mL high Refer ence Range Femal es Non-p regna nt 3.0-3 0.0 Pregn ant 10.0- 209.0 Postm enopa usal 2.0-2 0.0 Not Available [employer] [address] [address] [place], [address], 02/10/2025 06:56:30 01/14/2001/06/2025 US, obste tric, follo w-up No observ ation record ed. [email or web address] [facility] [address] [place], [address], 01/14/2025 12:03:40 Result Notes None recorded. Problems Name Problem SNOMED Code Status Onset Date Resolution Date Notes Provider Name and Address Organization Details Recorded Time Acute otitis externa of right ear [id number] Amparo MATA, [address], [address] , [facility] 5 12:13:28 Hearing loss 75946529 [facility] MADINA MATA, [address], [address] , [facility] 5 12:13:28 Past pregnanc y history of section 809143979 Amparo MATA, [place] [address] , [facility] 5 12:13:28 Bleeding from female genital tract during pregnanc y 69757817854 881425 Amparo MATA, [address], [address] , [facility] 5 12:13:28 Hyperpro lactinem ia 027869144 Amparo MATA, [address], , [facility] 5 12:13:29 Bleeding from nose 115345424 Amparo MATA, [place] [address] , [facility] 5 12:13:29 Recurren t bleeding of nose [place]o [place] [address] , [facility] 5 12:13:29 Cervicog enic headache 548621818 Amparo MATA, [address], [address] , [facility] 5 12:13:29 Right sided abdomina l pain 313046433 Amparo MATA, [address], [address] , [facility] 5 12:13:29 Patient encounte r status 414305306 Amparo MATA, [address], [address] , [facility] 5 12:13:29 Bronchit is 31945401 Amparo MATA, [address], [address] , [facility] 5 12:13:29 Strain of neck muscle 067153252 Amparo MATA, [address], [address] , [facility] 5 12:13:29 Chronic sinusiti s 18798994 Amparo MATA, [address], [address] , [facility] 5 12:13:29 Hypothyr oidism 48876456 Amparo MATA, [place] [address] , [facility] 5 12:13:29 Obesity 855361224 Amparo MATA, [place] [address] , [facility] 5 12:13:29 Refracto ry migraine without aura 979216136 Amparo MATA, [address], [address] [place] [address] , [facility] 5 12:13:29 Arthriti s of acromioc lavicula r joint 966219903 Amparo MATA, [address], [address] [place] [address] , [facility] 5 12:13:29 Oligomen orrhea 25499260 Amparo MATA, [address], [address] [place] [address] , [facility] 5 12:13:29 Chronic otitis externa 67075170 Amparo MATA, [address], [address] [place] [address] , [facility] 5 12:13:29 Subchori onic hematoma 370004139 Amparo MATA, [address], [address] , [facility] 5 12:13:29 Allergic rhinitis 37078592 Amparo MATA, [address], [address] [place] [address] , [facility] 5 12:13:29 Congenit al deviatio n of nasal septum 12754648 Amparo MATA, [address], [address] [place] [address] , [facility] 5 12:13:29 Female infertil ity 0616619 Amparo MATA, [address], [address] , [facility] 5 12:13:29 Posterio r rhinorrh ea 86333868 Active MADINA MATA, [address], , [facility], LB[facility]ramLB[facility]ram[facility] 5 12:13:29 Pain in face 41472031 Active MADINA MATA, [address], , [facility] 5 12:13:29 History of cholecys tectomy 339865666 Active 2021 MADINA MATA, [address], , [facility], LB[facility]ramLBertramCB[facility] 5 12:13:29 Family history of malignan t neoplasm of digestiv e organ 957194672 Active 2021 FAMILY HISTORY OF COLON CANCER IN MOTHER; Recorded 03/23/20 22 1:40PM by Homa Gaines CMT, Office Visit; Promoted ; acuity set as *; Not Available [facility] 3 03:07:44 Polycyst ic ovary syndrome 107254289 Active 2022 PCOS (POLYCYS TIC OVARIAN SYNDROME ); Recorded 06/02/19 23 1:39PM by Homa Gaines CMT, Historic al Summary; Promoted ; acuity set as *; Not Available [facility] 3 03:07:43 Chiari malforma tion type I 894978067 Active 2024 MADINA MATA, [address], , [facility], LBertramLBertramCB[facility]ram 5 12:13:29 Uterine leiomyom a 78796492 Active 2024 MADINA MATA, [address], , [facility] 5 12:13:29 Pregnanc y 24563292 Completed 202402/23/2025 ANISH STERLING ER null, [facility] 16:50:49 Maternal obesity complica ting pregnanc y, childbir th and the puerperi um, antepart um 07235679155 7 Active 2024 Romel Pan MD [address] [place] [address], [address] , [facility] 14:58:39 Uterine size for dates discrepa ncy 973768069 Active 2024 Romel Pan MD [address] [place] [address], [address] , [facility] LBertramLB[facility]ramC. 15:01:50 Seasonal allergy 091269289 Active 2024 Romel Pan MD [address] [place] [address], [address] , [facility] 12:46:17 Notes:Some problems listed i n Document: #[id number] could not be added to this patient's chart. Please review this document and add these problems to the patient's chart manually as needed. Problem Notes None recorded. Procedures Surgical History Date Name Laterality Status Provider Name and Address Organization Details Recorded Time 025 ligation of fallopian tube completed ANISH CONNOLLY [facility]ram[facility]ram[facility] 02/23/2025 16:52:51 025 [facility] LB[facility]ramLB[facility]ramCB[facility] 02/23/2025 16:52:34 025 Toenail avulsion completed HENNA BELLO PA-C [address] [place] [address], [address], [facility], See 11/10/2024 14:04:46 025 Date of Last Pap Smear completed [facility], See 01/06/2025 18:30:05 025 liquid based cervical cytology screening completed [facility], See 01/06/2025 18:30:38 024 US scan of abdomen and pelvis completed [facility], See 09/25/2023 18:31:26 023 MRI of right shoulder completed [facility], See 09/07/2022 12:50:22 colonoscopy completed [facility], See 02/23/2025 16:53:48 endoscopy and biopsy of upper gastrointestinal tract completed [facility], See 02/23/2025 16:54:16 dilation and curettage completed [facility], See 02/23/2025 16:54:53 repair of nose completed [facility], See 02/23/2025 16:56:09 Cholecystectomy completed [facility], See 02/22/2023 10:37:49 Tonsillectomy completed [facility], OjLBertramCB[facility]ram 02/22/2023 10:38:10 Imaging Results None recorded. Procedure Notes None recorded. Medical Equipment None Reported. Allergies Allergen ID Allergen Name Allergen Category Reaction Reaction Severity Criticality Documentation Date Start Date Code Code System Note Provider Name and Address Organization Details Recorded Time 54022 codeine phosphate medicatio n itching Not available Not available 11/11/2022 2672 RxNorm React ion: Itchi ng; Comme nt: Recor ded 03/23 1:40P M by Monica olvera, CMT, Offic e Visit ; Liam martin; Lesly velazquez ce: *; Reaso n: Drug aller gy; ; HOMA GAINES [facility] 3 10:33:25 36025 codeine medicatio n Not available Not available Not available 11/11/20222024 2670 RxNorm Other react ions and sever ities : 'Skin pruri tus'. MADINA MATA, [facility] [address] [place], [address], [facility] 12:13:16 91001 oxycodone medicatio n Not available Not available Not available 11/12/20242024 7804 RxNorm MADINA MATA, [address], [address], [facility] 12:13:16 Medications Name Sig Start Date Stop [...] fluoxetin e every other day 02/22 completed 26440; Recorded 08/18/19 21 7:47AM by Liana Rocha LPN (Authori tonya through YASMINE Mendoza), Office Visit; Refill Quantity : 90; Capsule; Not Available Not Available Not Available progester one daily 02/22 completed 43242; Recorded 02/17/20 22 2:01PM by Homa Gaines [...] Details Last Updated DateTime 5 166.37 cm 49.8 kg/m2 530245. 78 g 99 % 96 /min 18 /min 98.5 [degF] 130/74 mm[Hg] [facility] 12:28:03 Date Recorded Body height Body mass index (BMI) Body weight Oxygen saturation Heart rate Respiratory rate Body temperature Systolic And Diastolic Provider Name and Address Organization Details Last Updated DateTime 5 166.37 cm 50.7 kg/m2 246655. 84 g 99 % 92 /min 18 /min 98 [degF] 136/76 mm[Hg] ANISH COWANWVSho [facility] 10:51:22 Date Recorded Body height Body mass index (BMI) Body weight Oxygen saturation Heart rate Respiratory rate Body temperature Systolic And Diastolic Provider Name and Address Organization Details Last Updated DateTime 5 166.37 cm 50.2 kg/m2 698981. 97 g 98 % 112 /min 18 /min 98.5 [degF] 124/76 mm[Hg] ANISH COWANWVSho [facility] 14:11:55 Date Recorded Body height Body mass index (BMI) Body weight Oxygen saturation Heart rate Respiratory rate Body temperature Systolic And Diastolic Provider Name and Address Organization Details Last Updated DateTime 5 166.37 cm 50.5 kg/m2 127301. 85 g 98 % 96 /min 18 /min 98.5 [degF] 120/74 mm[Hg] TREBA NEUSCHWAN [facility] 5 15:24:43 Date Recorded Body height Body mass index (BMI) Body weight Oxygen saturation Heart rate Respiratory rate Body temperature Systolic And Diastolic Provider Name and Address Organization Details Last Updated DateTime 5 166.37 cm 51 kg/m2 520471. 03 g 97 % 96 /min 18 /min 99 [degF] 124/72 mm[Hg] ANISH MOREIRA [facility] 5 17:01:30 Social History Question Answer Notes LastModified by Organizat ion Details LastModified Time Tobacco Smoking Status Never Smoker HOMA LIANA harris [facility] 02/22/2023 10:36:25 Which Illicit Or Recreational Drugs Have You Used? Occasional Marijuana [email or web address] Information not available 02/22/2023 What Was The Date Of Your Most Recent Tobacco Screening? 11/07/2024 [email or web address] Information not available 11/07/2024 What Is Your Relationship Status? [email or web address] Information not available 02/22/2023 Sex: Unknown Functional Status Question Answer Note LastModified by Organizat ion Details LastModified Time Do you use any illicit or recreational drugs? Yes [email or web address] Information not available 02/22/2023 What is your level of alcohol consumption? Occasional [email or web address] Information not available 08/20/2023 Are you currently employed? Yes [email or web address] Information not available 02/22/2023 Are you able to care for yourself independently? Yes Information not available 02/22/2023 Mental Status None recorded. Family History Relationship Description Onset Age of this Age Resolved Age Notes LastModified by Organization Details LastModified Time Mother Malignant neoplasm of colon deceas ed age 58 [email or web address] Not available 02/22/2023 10:34:40 Father Type 2 diabetes mellitus [email or web address] Not available 02/22 10:34:58 Medical History Condition [...] Influenza, split virus, trivalent, preservative 6 completed AMDINA MATA, [address], [address], [facility], See 02/22/2023 11:12:44 Hib, unspecified formulation 0 completed MADINA MATA [address], [address], [facility], See 02/22/2023 11:12:44 MMR 0 completed MADINA MATA [address], [address], [facility], CedCBertram 02/22/2023 11:12:44 MMR 0 completed MADINA MATA, [facility] [address] [place], [address], [facility], See 02/22/2023 11:12:44 Tdap 4 completed MADINA VARNERTES, [facility] [address] [place], [address], [facility] 02/22/2023 11:12:44 Hep B, unspecified formulation 8 completed MADINA MATA, [facility] [address] [place], [address], [facility] 02/22/2023 11:12:44 polio, unspecified formulation 8 completed MADINA MATA, [facility] [address] [place] [address], [address], [facility] 02/22/2023 11:12:44 polio, unspecified formulation 2 completed MADINA MATA, [facility] [address] [place] [address], [address], [facility] 02/22/2023 11:12:44 polio, unspecified formulation 0 completed MADINA MATA, [facility] [address] [place] [address], [address], [facility] 02/22/2023 11:12:44 polio, unspecified formulation 3 completed MADINA MATA, [facility] [address] [place], [address], [facility] 02/22/2023 11:12:44 Hep B, adult 6 completed TREBA TOSHIANDER null, [facility] 12/24/2024 14:12:25 Hep B, adult 4 completed TREBA TOSHIANDER null, [facility] 12/24/2024 14:12:25 DTaP 8 completed MADINA MATA, [facility] [address] [place], [address], [place] [facility], LNetta 02/22/2023 11:12:44 DTaP 2 completed MADINA MATA, [facility] [address] [place], [address], [facility], See 02/22/2023 11:12:44 DTaP 0 completed MADINA MATA, [facility] [address] [place], [address], [place] [facility], See 02/22/2023 11:12:44 DTaP 3 completed MADINA MATA, [facility] [address] [place], [address], [facility], See 02/22/2023 11:12:44 Tdap 4 completed Not Available [facility] 02/23/2025 16:32:48 Hep A, adult 4 completed ANISH harris [facility], See 12/24/2024 14:12:25 Hep A, adult 4 completed Not Available [facility] 02/23/2025 16:32:48 RSV, bivalent, protein subunit RSVpreF, diluent reconstituted, 0.5 mL, PF 5 completed Not Available [facility] 02/23/2025 16:32:48 Tdap 5 completed Not Available [facility] 02/23/2025 16:32:48 Past Encounters Encounter ID Performer Location Encounter Start Date Encounter Closed Date Diagnosis/Indication Diagnosis SNOMED-CT Code Diagnosis ICD10 Code Diagnosis IMO Codes Diagnosis Note [id number] MADINA ESPERANZA, [facility] [address] [place] [address] 08/01/2022 12:14:30 08/07/2022 12:04:08 Arthritis 2249063 M15.0 Uses marijuana gummy to help with pain. Pain of ri ght shoulder joint 6248218929 1676115 M25.511 Ibuprofen, not helpful for shoulder pain. Pain has been going on for 9 months. Conservati ve treatments like PT and massage have failed. Morbid obesity 961025942 E66.01 Weight is under 300 now on Mounjaro. Highest weight has been 335ish. [id number] YASMINE SIERRA [facility] ([facility]) [address] [place] [address] 02/22/2023 10:00:32 02/22/2023 11:25:51 Adult health examination 130106931 Z00.00 Overall doing well. Paperwork filled out for foster care. She is planning on getting her nephew soon. Hopefully within a month. Multiple skin tags 60767 7009 L91.8 Polycystic ovary syndrome 906169468 E28.2 [id number] DANNY ELIZABETH [facility] ([facility]) [address] [place] [address] 08/20/2023 09:20:20 08/20/2023 12:03:56 Acute bacterial bronchitis 782869247 J20.9 Refill of albuterol neb soln provided today.Disc ussed use of antibiotic . Take with food.May use Jonathan's nasal inserts and also apply on chest. Push oral fluids. [id number] YASMINE SIERRA [facility] ([facility]) [address] [place] [address] 09/18/2023 10:02:57 09/18/2023 10:49:14 Morbid obesity 719000679 E66.01 Daughter recently diagnosed with alpha-gal. Patient having diarrhea as well. Diarrhea 24373963 R19.7 Pain in pelvis 09891518 R10.2 Bronchitis 22756762 J40 [id number] YASMINE SIERRA [facility] ([facility]) [address] [place] [address] 09/24/2023 14:41:44 09/24/2023 16:13:28 [id number] DANNY ELIZABETH [facility] ([facility]) [address] [place] [address] 11/07/2024 17:16:23 11/07/2024 18:55:15 Ingrowing great toenail 759504727 L60.0 331424 Discussed to soak foot in warm water with epsom salt 3 times a day for 10-15 minutes. Make sure to wear open toed or wide shoes to so the toes are not being squeezed.A pply antibiotic ointment to the toe 2 times a day.take antibiotic as directed.S cheduled for f/u to discuss possible removal. [id number] HENNA BELLO PA-C [facility] ([facility]) [address] [place] [address] 11/10/2024 11:06:07 11/10/2024 14:13:39 Ingrowing toenail 660666498 L60.0 732310 [id number] YASMINE SIERRA [facility] ([facility]) [address] [place] [address] 11/12/2024 11:13:52 11/12/2024 13:58:18 Increased frequency of urination 592445417 R35.0 91145 General ex amination of patient 210182704 Z00.00 11125665 Morbid obesity 634742497 E66.01 Second tri mester 30504473 Z34.92 666199 She will be 26 weeks on Sunday. [id number] Romel Pan MD [facility] ([facility]) [address] [place] [address] 12/24/2024 13:57:44 12/24/2024 15:25:56 Multigravida 099421345 Z34.83 03293883 Gestation period, 31 weeks 05889605 Z3A.31 4703328 History of Disorder 3128 22171 Z87.59 43307575 Maternal o besity complicating , childbirth and the puerperium, antepartum 5873052217 07 O99.213 3326627639 Uterine si ze for dates discrepancy 576035252 O26.370 7467160 [id number] Romel Pan MD [facility] ([facility]) [address] [place] [address] 01/06/2025 12:03:39 01/07/2025 12:11:14 [id number] Romel Pan MD [facility] ([facility]) [address] [place] [id number] 01/06/2025 14:05:06 01/19/2025 08:35:15 Maternal obesity complicating , childbirth and the puerperium, antepartum 1589421626 07 O99.213 2079919528 21365573 Z34.9 0 Gestation period, 33 weeks 29983346 Z3A.33 9476361 [id number] Romel Pan MD [facility] ([facility]) [address] [place] [address] 01/23/2025 11:22:39 01/23/2025 13:31:15 83340587 Z34.90 Gestation period, 35 weeks 09331591 Z3A.35 8262478 Seasonal allergy 3387529 04 J30.2 83431 [id number] Romel Pan MD [facility] ([facility]) [address] [place] [address] 01/29/2025 09:49:03 01/29/2025 11:19:50 [id number] Z34.90 Gestation period, 36 weeks 74150383 Z3A.36 9527756 [id number] Romel Pan MD [facility] ([facility]) [address] [place] [address] 02/06/2025 13:56:13 02/06/2025 14:34:30 [id number] Z34.90 Gestation period, 37 weeks 32680905 Z3A.37 2015007 [id number] Romel Pan MD [facility] ([facility]) [address] [place] [id number] 02/09/2025 14:45:26 02/09/2025 16:20:12 [id number] Z34.90 Gestation period, 38 weeks 32183381 Z3A.38 6640349 Hyperprolactinemia 12377 2004 E22.1 [id number] Romel Pan MD [facility] ([facility]) [address] [place], [place] [id number] 02/23/2025 16:32:28 02/24/2025 12:55:47 Postoperative visit 205184372 Z48.89 69613206 Pain of right breast 359 8001196 N64.4 [id number] Health Concerns Section Related Observation LastModified by Organization Detai ls LastModified Time None Recorded Concern Status LastModified by Organization Details LastModified Time None Recorded Advance Directives Directive None Recorded Payers Insurance Date Sequence Insurance Name Policy Number Policy Peterson Covered Member ID Peterson Member ID Guarantor Name 02/20/2025 [place] [facility] (INSTITUTIONAL) Shila Tarango [id number] Shila Tarango 02/20/2025 [facility] (MEDICAID HMO) Shila Tarango [id number] Shila Tarango 11/13/2024 2 [place] Sihla Tarango [id number] Shila Tarango 11/07/2024 [place] [facility] ([place]ITUTIONAL) Shila Tarango [id number] Shila Tarango 11/07/2024 1 [place] Shila Tarango [id number] Shila Tarango 03/03/2025 1 [facility] (MEDICAID HMO) Shila Tarango [id number] Shila Tarango 11/07/2024 1 [place] Shila Tarango [id number] Shila Tarango 09/18/2023 1 *SELF PAY* Marguerite [...] as noted in the HPI Transfer from [facility] Sylvia Espinoza MD [address] [place] [address], [phone] , [facility] 01/23/2025 12:48:43 025 text/h tml [...] as noted in the HPI [facility] [address] [place] [address], [phone] , [facility] 01/29/2025 11:18:05 025 text/h tml [...] as noted in the HPI Transfer from [facility] Sylvia Espinoza MD [address] [place] [address], [phone] , [facility] 02/06/2025 14:31:08 025 text/h tml [...] as noted in the HPI [facility] states she needs her prolactin rechecked. Romel Pan MD [address] [place] [address], [phone] , [facility] 02/09/2025 16:10:16 025 text/h tml jr post or tubalReported by PatientHPIFor associated symptoms, patient reportsfatigue,pain 10/23, andlower extremity edema/painbut reportsincision healing well,normal appetite,no constipation,no nausea,pain improving,no fever,no dysuria/urinary symptoms, andno diarrhea. For onset/timing, patient reportsdate of surgery: (02/17/25). For quality, patient reportsprocedure: (repeat and tubal ligation). Pt is having right breast pain Romel Pan MD [address] [place] [address], [phone] , [facility] 02/24/2025 09:11:48 OBGyn Episode Ob Episode Information Episode Created Date Number of Fetuses Patient Bloodtype Patient rh Status Prepregnancy Weight lbs Domestic Partner Domestic Partner Phone Father Name Marble Supervisor Status 12/25/19 25 1 CLOSED Fetus Data [...] Domestic Partner Domestic Partner Phone Father Name Marble Supervisor Status 12/25/19 25 1 A Positive Benigno [...] Weight in lbs Pre/Post Dialysis Refused Weight 295.40585595759 BP Diastolic BP Location Tested BP Systolic [...] Weight in lbs Pre/Post Dialysis Refused Weight 301.124978111590 BP Diastolic BP Location Tested BP Systolic [...] Weight in lbs Pre/Post Dialysis Refused Weight 304.905861945208 BP Diastolic BP Location Tested BP Systolic [...] Weight in lbs Pre/Post Dialysis Refused Weight 309.369123484987 BP Diastolic BP Location Tested BP Systolic [...] Weight in lbs Pre/Post Dialysis Refused Weight 306.085029258602 BP Diastolic BP Location Tested BP Systolic [...] Weight in lbs Pre/Post Dialysis Refused Weight 308.606744197080 BP Diastolic BP Location Tested BP Systolic BP Type 74 120 sitting Fetus Heart Rate Present A 136 Present Fetus Movement A Yes Comments pelvic/vaginal pressure, hea dache, heartburn, comstipation Flowsheet Date 02/23/2025 Hartman Score Blood Edema Fundus Height Fundus Units Glucose Ketones Leukocytes Nitrite Labor Signs Protein Cervic Dilation Cervic Effacement Cervic Station Type Weight in lbs Pre/Post Dialysis Refused Weight 311.701703682707 BP Diastolic BP Location Tested BP Systolic BP Type 72 124 sitting Fetus Heart Rate Present Fetus Movement Comments Menstrual History Last Menstrual Date Menses Monthly On Bcp Conception Prior Menses Frequency Hcg Plus Date Menarche Onset Age Genetic Screening And Infection History Question Response Note Patient's Age Will Be 35 Years Or Older At Estim ated Date of Delivery true Thalassemia (Kittitian, Kosovan, Mediterranean, Or Background): MCV < 80 false Neural Tube Defect (Meningomyelocele, Spina Bifi da, Or Anencephaly) false Congenital Heart Defect false Down Syndrome false Kasi-Sachs (eg, Sabianism, Cajun, Beninese-[place]) f alse Annmarie Disease false Sickle Cell Disease Or Trait () false Hemophilia Or Other Blood Disorders false Muscular Dystrophy false Cystic Fibrosis false [place]'s Chorea false Intellectual Disability/Autism false If Yes, [...]
--- OUTSIDE RECORDS SUMMARY | 2025-04-13 23:30 | XMS_ITS | Continuity of Care Document ---
Author Organization YULIYA Deal [facility] Lisa, See, [facility] ([facility]) Address [address] [place] [address] Care Team Providers Care Wire Puller Name Role Phone ESPERANZA MADINA Primary Care [...] GROUP B CULTU RE Micro Numbe r: [id number] Test Statu s: Final Speci men Sourc e: Vagin al/an orect al Speci men Quali ty: Adequ ate Resul t: No group B Strep tococ cus isola veronica Note per CDC guide lines optim al recov marlin is achie lisa by swabb ing both the lower vagin a and rectu m (thro ugh the anal sphin cter) . Not Available [facility] [address] [address] , [place], [address], 01/26/2025 11:13:15 01/30/2001/30/2025 CHLAM YSABAA/ N.HILDA ORRHO EAE AND T. VAGIN MAG RNA, QL TMA chlamydia trachomatis RNA, tma, urogenital NOT DETECT ED not detect ed normal Not Available [facility] [address] [place], [address], 01/30/2025 11:23:54 01/30/2001/30/2025 CHLAM YDIA/ N.HILDA ORRHO EAE AND T. VAGIN MAG RNA, QL TMA neisseria gonorrhoeae RNA, tma, urogenital NOT DETECT ED not detect ed normal Not Available [facility] [address] [place], [address], 01/30/2025 11:23:54 01/30/2001/30/2025 CHLAM YDIA/ N.HILDA ORRHO [...] e refer to https ://ed ati on.qu jerryTCM Bertha. An [place]/f aq/FA Q154 (This link is being provi ded for infor sarah beth rosa/ educa michelle l purpo ses only. ) Not Available [facility] [address] [address] , [place], [address], 01/30/2025 11:23:54 01/30/2001/30/2025 CHLAM YDIA/ N.HILDA ORRHO [...] l purpo ses only. ) Not Available [facility] [address] [place], [address], 01/30/2025 11:23:54 02/10/20 25 02/10/2025 PROLA CTIN prolactin 153.8 NG/mL high Refer ence Range Femal es Non-p regna nt 3.0-3 0.0 Pregn ant 10.0- 209.0 Postm enopa usal 2.0-2 0.0 Not Available [facility] [address] [address]ratio n, [place], [address], 02/10/2025 06:56:30 01/14/2001/06/2025 US, obste tric, follo w-up No observ ation record ed. [email or web address] [address], [address], 01/14/2025 12:03:40 Result Notes None recorded. Problems Name Problem SNOMED Code Status Onset Date Resolution Date Notes Provider Name and Address Organization Details Recorded Time Acute otitis externa of right ear 13153441588 [id number] Amparo MATA, [address], [address] , [facility] 5 12:13:28 Hearing loss 80830720 Amparo MATA [address], [address] , [facility] 5 12:13:28 Past pregnanc y history of section 894915743 Amparo MATA, [address], [address] , [facility] 5 12:13:28 Bleeding from female genital tract during pregnanc y 86679000946 224618 Amparo MATA, [address], [address] , [facility] 5 12:13:28 Hyperpro lactinem ia 025101879 Amparo MATA, [address], [address] , [facility] 5 12:13:29 Bleeding from nose 979104241 Amparo MATA, [address], [address] , [facility] 5 12:13:29 Recurren t bleeding of nose Amparo MATA, [address], [address] , [facility] 5 12:13:29 Cervicog enic headache 152501519 Amparo MATA, [address], [address] , [facility] 5 12:13:29 Right sided abdomina l pain 634768146 Amparo MATA, [address], [address] , [facility] 5 12:13:29 Patient encounte r status 832936093 Amparo MATA, [address], [address] , [facility] 5 12:13:29 Bronchit is 83883739 Amparo MATA, [address], [address] , [facility] 5 12:13:29 Strain of neck muscle 152032373 Amparo MATA, [address], [address] [place] [address] , [facility] 5 12:13:29 Chronic sinusiti s 54546896 Amparo MATA, [address], [address] [place] [address] , [facility] 5 12:13:29 Hypothyr oidism 60725774 Amparo MATA, [address], [address] [place] [address] , [facility] 5 12:13:29 Obesity 452082010 Amparo MATA, [address], [address] [place] [address] , [facility] 5 12:13:29 Refracto ry migraine without aura 373028895 Amparo MATA, [address], [address] [place] [address] , [facility] 5 12:13:29 Arthriti s of acromioc lavicula r joint 653725867 Amparo MATA, [address], [address] [place] [address] , [facility] 5 12:13:29 Oligomen orrhea 57583195 Amparo MATA, [address], [address] [place] [address] , [facility] 5 12:13:29 Chronic otitis externa 61417236 Amparo MATA, [address], [address] [place] [address] , [facility] 5 12:13:29 Subchori onic hematoma 472320084 Amparo MATA, [address], [address] , [facility] 5 12:13:29 Allergic rhinitis 31309086 Amparo MATA, [address], [address] , [facility] 5 12:13:29 Congenit al deviatio n of nasal septum 33644434 Amparo MATA, [address], [address] , [facility] 5 12:13:29 Female infertil ity 2627988 Amparo MATA, [address], [address] , [facility] 5 12:13:29 Posterio r rhinorrh ea 95068301 Amparo MATA, [address], [address] , [facility] 5 12:13:29 Pain in face 22101221 Amparo MATA, [address], [address] , [facility] 5 12:13:29 History of cholecys tectomy 689343210 Active 2021 MADINA MATA, [address], [address] , [facility] 5 12:13:29 Family history of malignan t neoplasm of digestiv e organ 485957334 Active 2021 FAMILY HISTORY OF COLON CANCER IN MOTHER; Recorded 03/23/20 22 1:40PM by Homa Gaines CMT, Office Visit; Promoted ; acuity set as *; Not Available [facility] 07/29/202 3 03:07:44 Polycyst ic ovary syndrome 390558222 Active 2022 PCOS (POLYCYS TIC OVARIAN SYNDROME ); Recorded 06/02/19 1:39PM by Homa Gaines CMT, Historic al Summary; Promoted ; acuity set as *; Not Available [facility] 3 03:07:43 Chiari malforma tion type I 792198371 Active 2024 MADINA MATA, [address], [address] , [facility] 5 12:13:29 Uterine leiomyom a 36807629 Active 2024 MADINA MATA, [address], [address] , [facility] 5 12:13:29 Pregnanc y 67898478 Completed 202402/23/2025 ANISH STERLING ER null, [facility] 5 16:50:49 Maternal obesity complica ting pregnanc y, childbir th and the puerperi um, antepart um 87660187841 7 Active 2024 Romel Pan MD [address] [place] [address], [address] , [facility] 5 14:58:39 Uterine size for dates discrepa ncy 713524088 Active 2024 Romel Pan MD [address] [place] [address], [address] , [facility] 5 15:01:50 Seasonal allergy 190427121 Active 2024 Romel Pan MD [address] [place] [address], [address] , [facility] 12:46:17 Notes:Some problems listed i n Document: #[id number] could not be added to this patient's chart. Please review this document and add these problems to the patient's chart manually as needed. Problem Notes None recorded. Procedures Surgical History Date Name Laterality Status Provider Name and Address Organization Details Recorded Time 025 [facility] fall[facility] tube [facility] 16:52:51 025 section completed [facility] 02/23/2025 16:52:34 025 Toenail avulsion completed HENNA BELLO PA-C [address] [place] [address], [address], [facility] 11/10/2024 14:04:46 025 Date of [facility] 18:30:05 025 liquid based cervical cytology screening [facility] 01/06/2025 18:30:38 024 [facility] 18:31:26 023 [facility]22 12:50:22 colonoscopy [facility] 02/23/2025 16:53:48 endoscopy and biopsy of upper gastrointestinal tract [facility] 02/23/2025 16:54:16 dilation and curettage completed [facility] 02/23/2025 16:54:53 repair of nose completed ANISH CONNOLLY [facility], See 02/23/2025 16:56:09 Cholecystectomy completed HOMA GAINES [facility], See 02/22/2023 10:37:49 Tonsillectomy completed HOMA LIANA [facility], See 02/22/2023 10:38:10 Imaging Results None recorded. Procedure Notes None recorded. Medical Equipment None Reported. Allergies Allergen ID Allergen Name Allergen Category Reaction Reaction Severity Criticality Documentation Date Start Date Code Code System Note Provider Name and Address Organization Details Recorded Time 08838 codeine phosphate medicatio n itching Not available Not available 11/11/2022 2672 RxNorm React ion: Itchi ng; Comme nt: Recor ded 03/23 1:40P M by Monica olvera, SHON, Offic e Visit ; Promo veronica; Lesly velazquez ce: *; Reaso n: Drug aller gy; ; HOMA LIANA [facility] 3 10:33:25 42663 codeine medicatio n Not available Not available Not available 11/11/20222024 2670 RxNorm Other react ions and sever ities : 'Skin pruri tus'. MADINA MATA, [facility] [address] [place], [address], [facility], See 5 12:13:16 47801 oxycodone medicatio n Not available Not available Not available 11/12/20242024 7804 RxNorm MADINA MATA, [facility] [address] [place] [address], [address], [facility], [facility] 12:13:16 Medications Name Sig Start Date Stop [...] fluoxetin e every other day 02/22 completed 93626; Recorded 08/18/19 21 7:47AM by Liana Rocha LPN (i tonya through YSAMINE Mendoza), Office Visit; Refill Quantity : 90; Capsule; Not Available Not Available Not Available progester one daily 02/22 completed 39438; Recorded 02/17/20 22 2:01PM by Homa Gaines [...] Organization Details Last Updated DateTime 166.37 cm 51 kg/m2 223195. 03 g 97 % 96 /min 18 /min 99 [degF] 124/72 mm[Hg] ANISH DAVIS [facility] 17:01:30 Social History Question Answer Notes LastModified by Organizat ion Details LastModified Time Tobacco Smoking Status Never Smoker HOMA harris [facility] 02/22/2023 10:36:25 Which Illicit Or Recreational Drugs Have You Used? Occasional Marijuana [email or web address] Information not available 02/22/2023 What Was The Date Of Your Most Recent Tobacco Screening? 11/07/2024 [email or web address] Information not available 11/07/2024 What Is Your Relationship Status? [email or web address] Information not available 02/22/2023 Sex: Unknown Functional Status Question Answer Note LastModified by Organizat ion Details LastModified Time Do you use any illicit or recreational drugs? Yes [email or web address] Information not available 02/22/2023 What is your level of alcohol consumption? Occasional [email or web address] Information not available 08/20/2023 Are you currently employed? Yes [email or web address] Information not available 02/22/2023 Are you able to care for yourself independently? Yes [email or web address] Information not available 02/22/2023 Mental Status None recorded. Family History Relationship Description Onset Age of this Age Resolved Age Notes LastModified by Organization Details LastModified Time Mother Malignant neoplasm of colon deceas ed age 58 Not available 02/22/2023 10:34:40 Father Type 2 diabetes mellitus [email or web address] Not available 02/22 10:34:58 Medical History Condition Response Coronary Artery Disease N Other N Gout N Kidney Stones N Blood Diseases N Hyperthyroidism N Breast Cancer N Blood Transfusion N Depression N COPD N Lung Disease N Hypothyroidism Y Developmental or Behavioral Disorders N Defects or Inherited Disease N Breast Problem N Difficulty Swallowing N Anesthesia Complications N Meniere's disease N Anxiety Disorder Y Muscle, Joint, or Bone Problems N Vision or Eye Problems Y Arthritis Y Polyps N Infertility N Cancer N Varicosities N Stroke N Endometriosis N Bladder or Kidney Problems N High Cholesterol N Liver Disease N Headaches N Fibromyalgia N Kidney Disease N Allergies/Hayfever Y Heart [...] Influenza, split virus, trivalent, preservative 6 completed MADINASho VARNERESPERANZA, [facility] [address] [place], [address], [facility] 02/22/2023 11:12:44 Hib, unspecified formulation 0 completed MADINA ESPERANZA, [facility] [address] [place], [address], [facility] 02/22/2023 11:12:44 MMR 0 completed MADINA VARNERTES, [facility] [address] [place], [address], [facility] 02/22/2023 11:12:44 MMR 0 completed MADINA MATA, [facility] [address] [place] [address], [address], [facility] 02/22/2023 11:12:44 Tdap 4 completed MADINASho VARNERESPERANZA, [facility] [address] [place], [address], [facility] 02/22/2023 11:12:44 Hep B, unspecified formulation 8 completed MADINA MATA, [facility] [address] [place], [address], [facility] 02/22/2023 11:12:44 polio, unspecified formulation 8 completed MADINA VARNERTES, [facility] [address] [place], [address], [facility] 02/22/2023 11:12:44 polio, unspecified formulation 2 completed MADINA MATA, [facility] [address] [place], [address], [facility] 02/22/2023 11:12:44 polio, unspecified formulation 0 completed MADINA VARNERTES, [facility] [address] [place], [address], [facility] 02/22/2023 11:12:44 polio, unspecified formulation 3 completed MADINA MATA, [facility] [address] [place], [address], [facility] 02/22/2023 11:12:44 Hep B, adult 6 completed ANISH STERLINGER [email or web address], [facility] 12/24/2024 14:12:25 Hep B, adult 4 completed ANISH STERLINGER null, [facility] 12/24/2024 14:12:25 DTaP 8 completed MADINA MATA, [facility] [address] [place], [address], [facility] 02/22/2023 11:12:44 DTaP 2 completed MADINA MATA, [facility] [address] [place], [address], [facility] 02/22/2023 11:12:44 DTaP 0 completed MADINA MATA, [facility] [address] [place], [address], [facility] 02/22/2023 11:12:44 DTaP 3 completed MADINA MATA, [facility] [address] [place], [address], [facility] 02/22/2023 11:12:44 Tdap 4 completed Not Available [facility] 02/23/2025 16:32:48 Hep A, adult 4 completed ANISH harris ID [facility], See 12/24/2024 14:12:25 Hep A, adult 4 completed Not Available [facility] 02/23/2025 16:32:48 RSV, bivalent, protein subunit RSVpreF, diluent reconstituted, 0.5 mL, PF 5 completed Not Available [facility] 02/23/2025 16:32:48 Tdap 5 completed Not Available [facility] 02/23/2025 16:32:48 Past Encounters Encounter ID Performer Location Encounter Start Date Encounter Closed Date Diagnosis/Indication Diagnosis SNOMED-CT Code Diagnosis ICD10 Code Diagnosis IMO Codes Diagnosis Note [id number] Romel Pan MD [facility] ([facility]) [address] [place] [address] 5 01/23/2025 11:22:39 01/23/2025 13:31:15 [id number] Z34.90 Gestation period, 35 weeks 72673449 Z3A.35 3369046 Seasonal allergy 1224810 04 J30.2 17578 [id number] Romel Pan MD [facility] ([facility]) [address] [place] [address] 5 01/29/2025 09:49:03 01/29/2025 11:19:50 [id number] Z34.90 Gestation period, 36 weeks 71198671 Z3A.36 0471959 [id number] Romel Pan MD [facility] ([facility]) [address] [place], [place] [address] 02/06/2025 13:56:13 02/06/2025 14:34:30 [id number] Z34.90 Gestation period, 37 weeks 45311528 Z3A.37 7561260 [id number] Romel Pan MD [facility] ([facility]) [address] [place] [address] 5 02/09/2025 14:45:26 02/09/2025 16:20:12 [id number] Z34.90 Gestation period, 38 weeks 19127921 Z3A.38 5904722 Hyperprolactinemia 68213 2004 E22.1 [id number] Romel Pan MD [facility] ([facility]) [address] [place] [address] 02/23/2025 16:32:28 02/24/2025 12:55:47 Postoperative visit 560173085 Z48.89 84895326 Pain of right breast 954 5913482 N64.4 [id number] Health Concerns Section Related Observation LastModified by Organization Detai ls LastModified Time None Recorded Concern Status LastModified by Organization Details LastModified Time None Recorded Payers Encounter Date Sequence Insurance Name Policy Number Policy Peterson Covered Member ID Peterson Member ID Guarantor Name 02/23/[address] [facility] (MEDICAID HMO) Shila Tarango [id number] Shila Tarango Notes Date Note Type Note Provider Name and Address Organization Details Recorded Time 02/23/2025 text/html jr post c-sectio n or tubalReported by PatientHPIFor associated symptoms, patient reportsfatigue,pain 10/23, andlower extremity edema/painbut reportsincision healing well,normal appetite,no constipation,no nausea,pain improving,no fever,no dysuria/urinary symptoms, andno diarrhea. For onset/timing, patient reportsdate of surgery: (02/17/25). For quality, patient reportsprocedure: (repeat and tubal ligation). Pt is having right breast pain Romel Pan MD [address] [place] [address], [address], [facility] 02/24/2025 09:11:48 OBGyn Episode Ob Episode Information Episode Created Date Number of Fetuses Patient Bloodtype Patient rh Status Prepregnancy Weight lbs Domestic Partner Domestic Partner Phone Father Name Ticket Counter Status 12/25/19 1 A Positive Benigno CLOSED [...] Weight in lbs Pre/Post Dialysis Refused Weight 295.03761936064 BP Diastolic BP Location Tested BP Systolic [...] Weight in lbs Pre/Post Dialysis Refused Weight 301.959537222182 BP Diastolic BP Location Tested BP Systolic [...] Weight in lbs Pre/Post Dialysis Refused Weight 304.080421291714 BP Diastolic BP Location Tested BP Systolic [...] Weight in lbs Pre/Post Dialysis Refused Weight 309.248262926713 BP Diastolic BP Location Tested BP Systolic [...] Weight in lbs Pre/Post Dialysis Refused Weight 306.565129754759 BP Diastolic BP Location Tested BP Systolic [...] Weight in lbs Pre/Post Dialysis Refused Weight 308.211878444699 BP Diastolic BP Location Tested BP Systolic BP Type 74 120 sitting Fetus Heart Rate Present A 136 Present Fetus Movement A Yes Comments pelvic/vaginal pressure, hea dache, heartburn, comstipation Flowsheet Date 02/23/2025 Hartman Score Blood Edema Fundus Height Fundus Units Glucose Ketones Leukocytes Nitrite Labor Signs Protein Cervic Dilation Cervic Effacement Cervic Station Type Weight in lbs Pre/Post Dialysis Refused Weight 311.927399580088 BP Diastolic BP Location Tested BP Systolic BP Type 72 124 sitting Fetus Heart Rate Present Fetus Movement Comments Menstrual History Last Menstrual Date Menses Monthly On Bcp Conception Prior Menses Frequency Hcg Plus Date Menarche Onset Age Genetic Screening And Infection History Question Response Note Patient's Age Will Be 35 Years Or Older At Estim ated Date of Delivery true Thalassemia (Slovak, Belarusian, Mediterranean, Or Background): MCV < 80 false Neural Tube Defect (Meningomyelocele, Spina Bifi da, Or Anencephaly) false Congenital Heart Defect false Down Syndrome false Kasi-Sachs (eg, Orthodox, Cajun, Malay-Tajik) f alse Annmarie Disease false Sickle Cell Disease Or Trait () false Hemophilia Or Other Blood Disorders false Muscular Dystrophy false Cystic Fibrosis false Jesup's Chorea false Intellectual Disability/Autism false If Yes, [...]
--- OUTSIDE RECORDS SUMMARY | 2025-04-13 23:30 | XMS_ITS | Continuity of Care Document ---
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 [email or web address] Not available 02/09/2025 16:10:02 Plan of Treatment Reminders Order Date Submit Date Provider Last Modified By Organization Details Last Modified Time Details Appointments None recorde d. Lab prolact in, serum 025 02/10/20 [facility], [address] [place] [address] 248, [facility] [address] [place], [address], 06:56:30 Referral None recorde d. Procedures None recorde d. Surgeries None recorde d. Imaging None recorde d. Medication Orders None recorde d. Patient TargetsNo targets recorded. Patient InstructionsNo instructions recorded. Reason for Referral None Reported. Results Created Date Observation Date Name Description Value Unit Range Abnormal Flag Note LastModifiedBy Organization Detail LastModifiedTime 01/24/2001/26/2025 STREP TOCOC CUS, GROUP B CULTU RE streptococcu s, group B culture SEE NOTE STREP TOCOC CUS, GROUP B CULTU RE Micro Numbe r: [id number] Test Statu s: Final Speci men Sourc e: Vagin al/an orect al Speci men Quali ty: Adequ ate Resul t: No group B Strep tococ cus isola veronica Note per CDC guide lines optim al recojose miguel isaac is achie lisa by swabb ing both the lower vagin a and rectu m (thro ugh the anal sphin cter) . Not Available [facility] [address] [address] [place], [address], 01/26/2025 11:13:15 01/30/2001/30/2025 CHLAM YDIA/ N.HILDA ORRHO EAE AND T. VAGIN MAG RNA, QL TMA chlamydia trachomatis RNA, tma, urogenital NOT DETECT ED not detect ed normal Not Available [facility] [address] [address] [place], [address], 01/30/2025 11:23:54 01/30/2001/30/2025 CHLAM YDIA/ N.HILDA ORRHO EAE AND T. VAGIN MAG RNA, QL TMA neisseria gonorrhoeae RNA, tma, urogenital NOT DETECT ED not detect ed normal Not Available [facility] [address] [address] [place], [address], 01/30/2025 11:23:54 01/30/2001/30/2025 CHLAM YDIA/ N.HILDA ORRHO [...] refer to https ://ed ucati on.qu estdi [employer]. com/f aq/FA Q154 (This link is being provi ded for infor sarah beth rosa/ jeanna martinez l purpo ses only. ) Not Available [facility] [address] [address] [place], [address], 01/30/2025 11:23:54 01/30/2001/30/2025 CHLAM YDIA/ N.HILDA ORRHO EAE AND T. VAGIN MAG RNA, QL TMA trichomonas vaginalis RNA, ql tma NOT DETECT ED not detect ed normal For addit ional infor rodrick portillo e refer to http: //[facility] grant rosa.que stdia gnost ics.c om/ faq/T damir yeung tma (This link is being provi ded for infor sarah beth ann/ educa michelle l purpo ses only. ) Not Available [facility] [address] [place], [address], 01/30/2025 11:23:54 02/10/2002/10/2025 PROLA CTIN prolactin 153.8 NG/mL high Refer ence Range Femal es Non-p regna nt 3.0-3 0.0 Pregn ant 10.0- 209.0 Postm enopa usal 2.0-2 0.0 Not Available [facility] [address] [place], [address], 02/10/2025 06:56:30 01/14/2001/06/2025 US, obste tric, follo w-up No observ ation record ed. [email or web address] [address], [address], 01/14/2025 12:03:40 Result Notes None recorded. Problems Name Problem SNOMED Code Status Onset Date Resolution Date Notes Provider Name and Address Organization Details Recorded Time Acute otitis externa of right ear 40862683475 87479 Active MADINA MATA, [address], [address] , [facility] Hearing loss 86822648 Active MADINA MATA, [address], [address] , [facility] 5 12:13:28 Past pregnanc y history of section 438505016 Amparo MATA, [place] [address] , [facility] 5 12:13:28 Bleeding from female genital tract during pregnanc y 07035094718 417151 Amparo MATA, [place] [address] , [facility] 5 12:13:28 Hyperpro lactinem ia 902757095 Amparo MATA, [place] [address] , [facility] 5 12:13:29 Bleeding from nose 387750251 Amparo MATA, [place] [address] , [facility] 5 12:13:29 Recurren t bleeding of nose Amparo MATA, [address] , [facility] 5 12:13:29 Cervicog enic headache 099689960 Amparo MATA, [place] [address] , [facility] 5 12:13:29 Right sided abdomina l pain 155281196 Amparo MATA, [place] [address] , [facility] 5 12:13:29 Patient encounte r status 148438576 Amparo MATA, [place] [address] , [facility] 5 12:13:29 Bronchit is 64036880 Amparo MATA, [address], [address] , [facility] 5 12:13:29 Strain of neck muscle 739926667 Amparo MATA, [address], [address] , [facility] 5 12:13:29 Chronic sinusiti s 03903849 Amparo MATA, [address], [address] , [facility] 5 12:13:29 Hypothyr oidism 29837935 Amparo MATA, [address], [address] , [facility] 5 12:13:29 Obesity 006814372 Amparo MATA, [address], [address] , [facility] 5 12:13:29 Refracto ry migraine without aura 663794100 Amparo MATA, [address], [address] , [facility] 5 12:13:29 Arthriti s of acromioc lavicula r joint 397556135 Amparo MATA, [address], [address] , [facility] 5 12:13:29 Oligomen orrhea 54285985 Amparo MATA, [place] [address] , [facility] 5 12:13:29 Chronic otitis externa 90357778 Active MADINA MATA, [address], [address] , [facility] 5 12:13:29 Subchori onic hematoma 647878414 Active MADINA AMTA, [address], [address] , [facility] 5 12:13:29 Allergic rhinitis 68028431 Amparo MATA, [address], [address] , [facility] 5 12:13:29 Congenit al deviatio n of nasal septum 96193754 Amparo MATA, [address], [address] , [facility] 5 12:13:29 Female infertil ity 3546284 Amparo MATA, [address], [address] , [facility] 5 12:13:29 Posterio r rhinorrh ea 28040455 Amparo MATA, [address], [address] , [facility] 5 12:13:29 Pain in face 62491669 Amparo MATA, [address], [address] , [facility] 5 12:13:29 History of cholecys tectomy 003411226 Active 2021 MADINA MATA, [facility] [address] [place], [address] , [facility] 5 12:13:29 Family history of malignan t neoplasm of digestiv e organ 112506721 Active 2021 FAMILY HISTORY OF COLON CANCER IN MOTHER; Recorded 03/23/20 22 1:40PM by Homa Gaines CMT, Office Visit; Promoted ; acuity set as *; Not Available [facility] 3 03:07:44 Polycyst ic ovary syndrome 713551253 Active 2022 PCOS (POLYCYS TIC OVARIAN SYNDROME ); Recorded 06/02/19 23 1:39PM by Homa Gaines CMT, Historic al Summary; Promoted ; acuity set as *; Not Available [facility] 3 03:07:43 Chiari malforma tion type I 266345060 Active 2024 MADINA MATA, [address], [address] , [facility] 5 12:13:29 Uterine leiomyom a 78436165 Active 2024 MADINA MATA, [address], [address] , [facility] 5 12:13:29 Pregnanc y 21645996 Completed 202402/23/2025 ANISH STERLING ER null, [facility] 5 16:50:49 Maternal obesity complica ting pregnanc y, childbir th and the puerperi um, antepart um 67389001005 7 Active 2024 Romel Pan MD [address] [place] [address], [address] , [facility] 5 14:58:39 Uterine size for dates discrepa ncy 026754197 Active 2024 Romel Pan MD [address] [place], [address] , [facility], See 15:01:50 Seasonal allergy 787747582 Active 2024 Romel Pan MD [address] [place], [address] , [facility], See 12:46:17 Notes:Some problems listed i n Document: #[id number] could not be added to this patient's chart. Please review this document and add these problems to the patient's chart manually as needed. Problem Notes None recorded. Procedures Surgical History Date Name Laterality Status Provider Name and Address Organization Details Recorded Time 025 [facility] 16:52:51 025 section [facility] 02/23/2025 16:52:34 025 Toenail avulsion completed HENNA BELLO PA-C [address] [place], [address], [facility] 11/10/2024 14:04:46 025 Date of Last Pap Smear [facility] 18:30:05 025 liquid based cervical cytology screening completed [facility] 01/06/2025 18:30:38 024 US scan of abdomen and pelvis completed [facility] 09/25/2023 18:31:26 023 MRI of right shoulder completed [facility] 09/07/2022 12:50:22 colonoscopy completed [facility], See 02/23/2025 16:53:48 endoscopy and biopsy of upper gastrointestinal tract completed [facility], See 02/23/2025 16:54:16 dilation and curettage completed [facility], See 02/23/2025 16:54:53 repair of nose completed [facility], See 02/23/2025 16:56:09 Cholecystectomy [facility] 02/22/2023 10:37:49 Tonsillectomy completed [facility] 02/22/2023 10:38:10 Imaging Results None recorded. Procedure Notes None recorded. Medical Equipment None Reported. Allergies Allergen ID Allergen Name Allergen Category Reaction Reaction Severity Criticality Documentation Date Start Date Code Code System Note Provider Name and Address Organization Details Recorded Time 16572 codeine phosphate medicatio n itching Not available Not available 11/11/2022 2672 RxNorm React ion: Itchi ng; Comme nt: Recor ded 03/23 1:40P M by Monica olvera, CMT, Offic e Visit ; Promo veronica; Signashley velazquez ce: *; Reaso n: Drug aller gy; ; HOMA harris [facility], OjLLaura 3 10:33:25 00190 codeine medicatio n Not available Not available Not available 11/11/20222024 2670 RxNorm Other react ions and sever ities : 'Skin pruri tus'. MADINA MATA, [facility] [address] [place], [address] , [facility], See 5 12:13:16 56380 oxycodone medicatio n Not available Not available Not available 11/12/20242024 7804 RxNorm MADINA MATA, [employer] [address] [facility], [place], [address], [facility], See 12:13:16 Medications Name Sig Start Date Stop [...] fluoxetin e every other day 02/22 completed 17326; Recorded 08/18/19 21 7:47AM by Alejandrina Rocha LPN (Authori tonya through YASMINE Mendoza), Office Visit; Refill Quantity : 90; Capsule; Not Available Not Available Not Available progester one daily 02/223 completed 29341; Recorded 02/17/20 22 2:01PM by Homa Gaines [...] Updated DateTime 5 166.37 cm 50.5 kg/m2 845759. 85 g 98 % 96 /min 18 /min 98.5 [degF] 120/74 mm[Hg] ANISH MOREIRA [facility] 15:24:43 Social History Question Answer Notes LastModified by Organizat ion Details LastModified Time Tobacco Smoking Status Never Smoker HOMA harris [facility], OjLBertramCBertram 02/22/2023 10:36:25 Which Illicit Or Recreational Drugs Have You Used? Occasional Marijuana Information not available 02/22/2023 What Was The Date Of Your Most Recent Tobacco Screening? 11/07/2024 [email or web address] Information not available 11/07/2024 What Is Your Relationship Status? [email or web address] Information not available 02/22/2023 Sex: Unknown Functional Status Question Answer Note LastModified by Organizat ion Details LastModified Time Do you use any illicit or recreational drugs? Yes [email or web address] Information not available 02/22/2023 What is your level of alcohol consumption? Occasional [email or web address] Information not available 08/20/2023 Are you currently employed? Yes Information not available 02/22/2023 Are you able to care for yourself independently? Yes [email or web address] Information not available 02/22/2023 Mental Status None recorded. Family History Relationship Description Onset Age of this Age Resolved Age Notes LastModified by Organization Details LastModified Time Mother Malignant neoplasm of colon deceas ed age 58 [email or web address] Not available 02/22/2023 10:34:40 Father Type 2 diabetes mellitus [email or web address] Not available 02/22 10:34:58 Medical History Condition [...] virus, trivalent, preservative 6 completed MADINA MATA, [facility] [address] [place], [address], [facility] 02/22/2023 11:12:44 Hib, unspecified formulation 0 chandan MATA, [address], [address], [facility] 02/22/2023 11:12:44 MMR 0 chandan MATA, [address], [address], [facility] 02/22/2023 11:12:44 MMR 0 chandan MATA, [address], [address], [facility] 02/22/2023 11:12:44 Tdap 4 completed MADINA MATA, [facility] [address] [place] [address], [address], [facility] 02/22/2023 11:12:44 Hep B, unspecified formulation 8 completed MADINA MATA, [facility] [address] [place], [address], [facility] 02/22/2023 11:12:44 polio, unspecified formulation 8 completed MADIAN VARNERTES, [facility] [address] [place], [address], [facility] 02/22/2023 11:12:44 polio, unspecified formulation 2 completed MADINA VARNERTES, [facility] [address] [place], [address], [facility] 02/22/2023 11:12:44 polio, unspecified formulation 0 completed MADINA MATA, [facility] [address] [place], [address], [facility] 02/22/2023 11:12:44 polio, unspecified formulation 3 completed MADINA MATA, [facility] [address] [place], [address], [facility] 02/22/2023 11:12:44 Hep B, adult 6 completed TREBA CHAPOWAEVITAER null, [facility] 12/24/2024 14:12:25 Hep B, adult 4 completed TREBA CHAPOWANDER null, [facility] 12/24/2024 14:12:25 DTaP 8 completed MADINA VARNERTES, [facility] [address] [place], [address], [facility] 02/22/2023 11:12:44 DTaP 2 completed MADINA VARNERTES, [facility] [address] [place], [address], [facility] 02/22/2023 11:12:44 DTaP 07/24/199 0 completed MADINA MATA, [employer] [address] [place], [address], [place] [facility] L.LBertramCBertram 02/22/2023 11:12:44 DTaP 3 completed MADINA MATA, [employer] [address] [place], [address], [facility]LL[facility] 02/22/2023 11:12:44 Tdap 4 completed Not Available [facility] 02/23/2025 16:32:48 Hep A, adult 4 completed ANISH harris, [facility], LBertramLLaura 12/24/2024 14:12:25 Hep A, adult 4 completed Not Available [facility] 02/23/2025 16:32:48 RSV, bivalent, protein subunit RSVpreF, diluent reconstituted, 0.5 mL, PF 5 completed Not Available [facility] 02/23/2025 16:32:48 Tdap 5 completed Not Available [facility] 02/23/2025 16:32:48 Past Encounters Encounter ID Performer Location Encounter Start Date Encounter Closed Date Diagnosis/Indication Diagnosis SNOMED-CT Code Diagnosis ICD10 Code Diagnosis IMO Codes Diagnosis Note [id number] Romel Pan MD [facility] ([facility]) [address] [place] [address] 01/23/2025 11:22:39 01/23/2025 13:31:15 [id number] Z34.90 Gestation period, 35 weeks 97830602 Z3A.35 3768288 Seasonal allergy 8608691 04 J30.2 17472 [id number] Romel Pan MD [facility] ([facility]) [address] [place] [address] 01/29/2025 09:49:03 01/29/2025 11:19:50 [id number] Z34.90 Gestation period, 36 weeks 09391487 Z3A.36 0281688 [id number] Romel Pan MD [facility] ([facility]) [address] [place] [address] 02/06/2025 13:56:13 02/06/2025 14:34:30 [id number] Z34.90 Gestation period, 37 weeks 81265868 Z3A.37 1826577 [id number] Romel Pan MD [facility] ([facility]) [address] [place] [address] 02/09/2025 14:45:26 02/09/2025 16:20:12 [id number] Z34.90 Gestation period, 38 weeks 46990263 Z3A.38 0016464 Hyperprolactinemia 82825 2004 E22.1 Health Concerns Section Related Observation LastModified by Organization Detai ls LastModified Time None Recorded Concern Status LastModified by Organization Details LastModified Time None Recorded Payers Encounter Date Sequence Insurance Name Policy Number Policy Peterson Covered Member ID Peterson Member ID Guarantor Name 02/09/2025 1 [facility] (MEDICAID HMO) Shila Tarango [id number] Shila Tarango Notes Date Note Type Note Provider Name and Address Organization Details Recorded Time 025 text/ht ml jr ob routineReported by PatientHPIFor [...] noted in the HPI [facility], Sylvia Pt states she needs her prolactin rechecked. Romel Pan MD [address] [place] [address], [address], [facility], See 02/09/2025 16:10:16 OBGyn Episode Ob Episode Information Episode Created Date Number of Fetuses Patient Bloodtype Patient rh Status Prepregnancy Weight lbs Domestic Partner Domestic Partner Phone Father Name Sas Programmer Analyst Status 12/25/19 1 A Positive Benigno CLOSED [...] Ultra Sound Latest Days Gestation 0 02/23/20 0 Pre-meliton Flowsheet Flowsheet Date 12/24/2024 Hartman Score Blood Edema Fundus Height Fundus Units Glucose Ketones Leukocytes Nitrite Labor Signs Protein Cervic Dilation Cervic Effacement Cervic Station 36 cm none none Negative trace Type Weight in lbs Pre/Post Dialysis Refused Weight 295.64995167417 BP Diastolic BP Location Tested BP Systolic [...] Weight in lbs Pre/Post Dialysis Refused Weight 301.539762843236 BP Diastolic BP Location Tested BP Systolic [...] Weight in lbs Pre/Post Dialysis Refused Weight 304.434633764652 BP Diastolic BP Location Tested BP Systolic [...] Weight in lbs Pre/Post Dialysis Refused Weight 309.241019749921 BP Diastolic BP Location Tested BP Systolic [...] Weight in lbs Pre/Post Dialysis Refused Weight 306.251712904718 BP Diastolic BP Location Tested BP Systolic [...] Weight in lbs Pre/Post Dialysis Refused Weight 308.650705021781 BP Diastolic BP Location Tested BP Systolic BP Type 74 120 sitting Fetus Heart Rate Present A 136 Present Fetus Movement A Yes Comments pelvic/vaginal pressure, hea dache, heartburn, comstipation Flowsheet Date 02/23/2025 Hartman Score Blood Edema Fundus Height Fundus Units Glucose Ketones Leukocytes Nitrite Labor Signs Protein Cervic Dilation Cervic Effacement Cervic Station Type Weight in lbs Pre/Post Dialysis Refused Weight 311.314642490768 BP Diastolic BP Location Tested BP Systolic BP Type 72 124 sitting Fetus Heart Rate Present Fetus Movement Comments Menstrual History Last Menstrual Date Menses Monthly On Bcp Conception Prior Menses Frequency Hcg Plus Date Menarche Onset Age Genetic Screening And Infection History Question Response Note Patient's Age Will Be 35 Years Or Older At Estim ated Date of Delivery true Thalassemia (Divehi, Zimbabwean, Mediterranean, Or Background): MCV < 80 false Neural Tube Defect (Meningomyelocele, Spina Bifi da, Or Anencephaly) false Congenital Heart Defect false Down Syndrome false Kasi-Sachs (eg, Yazidi, Cajun, Djiboutian-Mclean) f alse Annmarie Disease false Sickle Cell Disease Or Trait () false Hemophilia Or Other Blood Disorders false Muscular Dystrophy false Cystic Fibrosis false Citrus's Chorea false Intellectual Disability/Autism false If Yes, [...]
[2025-04-13 23:40] VITALS: BP 127/83; PULSE 98; RESP 18; TEMP 36.6; O2SAT 96; BMI 47.6
--- NOTE | 2025-04-14 00:12 | ED_ITS ---
HPI - Ear Problem General: Chief complaint: Ear Stated complaint: Left Ear Time Seen by Provider: 04/13/25 23:32 History of Present Illness: Patient is 39-year-old female that presents to the emergency room due to left ear pain. This started 2 days ago. Patient had a previous prescription of analgesics for her ear that she is out of, and its . This could be arulgan but she is not for sure. No fevers. No upper respiratory symptoms. Associated symptoms: Reports ear or mastoid pain; Denies fever(s), neck pain or tinnitus Related Data Home Medications ?Medication ?Instructions ?Recorded ?Confirmed multivitamin with minerals-folic 400 mcg PO DAILY 09/1502/17/25 acid 200 mcg chewable tablet (Adult Multivitamin Gummies) levothyroxine 75 mcg tablet 75 mcg PO DAILY 07/17/24 1 04/19/24 (Levoxyl) Previous Rx's ?Medication ?Instructions ?Recorded docusate sodium 100 mg capsule 100 mg PO BID #30 caps 02/19/25 hydrocodone 10 mg-acetaminophen 1 tab PO Q6H PRN Sever e Pain #28 02/19/25 325 mg tablet tabs ibuprofen 800 mg tablet 800 mg PO TID #45 tabs 02/19 Allergies Allergy/AdvReac Type Severity Reaction Status Date / Time oxycodone Allergy Intermediate itch Verified 04/13/25 23:44 codeine Allergy ADR-Itching Verified 04/13/25 23:44 Review of Systems General: Reports: 10 or more systems reviewed and unremarkable except in HPI and below Const: Denies: fever(s) or chills Eyes: Denies: change in vision or blurry vision ENMT: Reports: ear or mastoid pain; Denies: throat pain, change in hearing, tinnitus or disequilibrium Card: Denies: chest pain GI: Denies: abdominal pain, nausea or vomiting : Denies: flank pain or difficulty voiding Musc: Reports: back pain; Denies: neck pain Skin/Breast: Denies: rash or pruritus Pedro/Lymph: Denies: easy bruising [facility] ED PFSH: Medical History (Updated 04/14/25 @ 00:22 by TRACY Booth) Hyperprolactinemia No pertinent past medical history neghx: htn, dm, dvt/pe PCP: Favio or Heather Inability to conceive, female Hypothyroidism Polycystic ovarian syndrome Obesity Surgical History (Updated 02/18/25 @ 17:17 by Romel Pan MD) Status post laparoscopic cholecystectomy (11/18/21) History of sinus surgery 12/2019 History of tonsillectomy (~2008) History of nasal surgery (~2008) Treatment deviated septum History of foot surgery (~2010) Right foot History of D&C History of delivery (05/03/12) Induced at 37 wks due to low LOLITA. FTP after [address] Chua in [place], [place]. History of colonoscopy 10/2014: Performed by Dr. [place] at [facility] [place]. Family History Mother , Age 56 from colon cancer Thyroid disease Colon cancer Hypertension Family/Other Thyroid disease maternal aunt Breast cancer Great great grandmother Hypertension Paternal aunt Father Diabetes Denies family history of Ovarian cancer Prostate cancer Heart disease Hyperlipidemia Uterine cancer Stroke Social History Smoking and tobacco/nicotine status: never used tobacco/nicotine Physical Exam Const: COMMON NORMALS: patient oriented x3 HENMT: COMMON NORMALS: normocephalic, TM's normal bilaterally and oropharynx normal HEAD & SCALP: normal to inspection and normocephalic EXTERNAL AUDITORY CANAL: Abnormal EAC present EAC laterality: right Details: excessive cerumen and left Details: erythema TYMPANIC MEMBRANE: TM's normal bilaterally MOUTH: Normal oral and palatal mucosa present THROAT: posterior oropharynx normal Chest: COMMONS NORMALS: normal inspection of the chest and normal palpation of entire chest wall Resp: COMMON NORMALS: normal respiratory effort, No retractions, No use of accessory muscles and clear to auscultation bilaterally AUSCULTATION: clear to auscultation bilaterally Cardio: COMMON NORMALS: regular rate and regular rhythm RATE: regular rate RHYTHM: regular rhythm GI: COMMON NORMALS: Normal to inspection, nondistended, normoactive bowel sounds present, Soft to palpation, non-tender and No hepatosplenomegaly present PALPATION: Yes Soft to palpation and Yes No hepatosplenomegaly present : COMMON NORMALS: Yes no CVA tenderness BLADDER/KIDNEY EXAM: Yes no CVA tenderness Back/Pelvis: COMMON NORMALS: no CVA tenderness Extremity: COMMON NORMALS: normal to inspection, full ROM and capillary refill normal GENERAL: Yes normal exam except as noted Neuro: COMMON NORMALS: patient oriented x3, CN's II-XII intact bilaterally and moves all extremities Psych: COMMON NORMALS: mental status grossly normal, Normal thought process present, cooperative, normal affect, speech normal and activity/motor behavior normal SPEECH: Yes normal speech THOUGHT PROCESS: Normal thought process present Course Vital Signs: Vital signs: Vital Signs Temperature 97.9 F 04/13/25 23:40 Pulse Rate 98 04/13/25 23:40 Respiratory Rate 18 04/13/25 23:40 Blood Pressure 127/83 04/13/25 23:40 Pulse Oximetry 96 04/13/25 23:40 Oxygen Delivery Me thod Room Air 04/13/25 23:40 MDM - Ear Medical Decision Making Patient is 39-year-old female that presents with 2 days of left ear pain. She states she has a history of eczema to bilateral ears, and does clean on a daily basis. Her right ear has her TM obscured, however this is not her complaint, and the EXTR auditory canal looks benign other than excessive cerumen. On the left side, patient does have redness in the anterior portion of the EAC. This is reproduced by elevating the penia. This is the most likely culprit. Medical Records I reviewed the patient's medical records. No radiology studies performed this visit Discharge Plan Discharge Patient Disposition: Home Clinical Impression: Acute otitis externa of left ear Qualifiers: Otitis externa type: noninfectious Noninfectious otitis externa type: actinic Qualified Code(s): H60.512 - Acute actinic otitis externa, left ear Condition: Stable Prescriptions: No Action levothyroxine [Levoxyl] 75 mcg tablet 75 mcg PO DAILY multivit with min-folic acid [Adult Multivitamin Gummies] 200 mcg Tabl et,Chewable 400 mcg PO DAILY ibuprofen 800 mg Tablet 800 mg PO TID Qty: 45 0RF hydrocodone-acetaminophen 10-325 mg Tablet 1 tab PO Q6H PRN (Reason: Severe Pain) Qty: 28 0RF docusate sodium 100 mg Capsule 100 mg PO BID Qty: 30 0RF Discharge Orders: Discharge ED (Routine); Ordered 04/14/25 Ordered By: Rosita Katz Referrals: Nely Romero FNP [Primary Care Provider, Unknown] Discharge Diet: Usual diet Discharge Activity: Resume usual activity Patient Instructions: Otitis Externa - Adult, Patient Portal & Shay Instructions Activity Restrictions/Additional Instructions: - Eardrops: Ciprofloxacin/dexamethasone otic. Take 4 drops in your left ear twice daily. This is a full bottle and you can continue at home. - Claritin: We discussed you taking this twice daily to help with the upper respiratory symptoms - As well, if you develop runny nose, increasing pressure, we discussed: Astepro, Flonase [id number]. Flonase/fluticasone also comes in generic which is best - Return to ED with fever greater than 100.4 ?F, worsening symptoms, shortness of breath Thank you for choosing [facility] for your healthcare needs today. You have been screened and evaluated and felt safe for discharge. Health conditions do change or evolve sometimes and as such it is important that you follow up with your Primary Doctor to be re checked, 3-5 days is a general good time frame for follow up. You are always welcome to return to the ED for re assessment if your symptoms are worsening or you have new concerns Print Language: Sierra Leonean Coding Level of Care Code ED Saw Maker for Ryan Menon
[2025-04-14] MEDS: ciprofloxacin-dexameth Otic Susp 7.5 mL Btl 4 DROP EAR-LEFT (00:21)
== END 2025-04-14 00:24 | disposition home or self-care (01) ==
PROVIDERS: Emergency Provider Physician Assistant; PCP Nurse Practitioner Family
DX: H60.512 Acute actinic otitis externa, left ear (principal)
CPT/HCPCS: 99283; J9999